=== PATIENT | male | born 1980 | race Caucasian/White ===

== ENCOUNTER → 2020-08-05 15:52 | Outpatient (CLI) | payer MEDICARE, SELFPAY | PROVIDERS: PCP Internal Medicine; Referring Provider Internal Medicine; Visit Provider Orthopaedic Surgery Adult Reconstructive Orthopaedic Surgery | DX: M23.91 Unspecified internal derangement of right knee (principal); Z53.8 Procedure and treatment not carried out for other reasons ==

== ENCOUNTER → 2020-08-11 16:12 | Outpatient (CLI) | payer MEDICARE, SELFPAY ==
--- NOTE | 2020-08-11 16:17 | DI.CT.S_ITS ---
PROCEDURE: CT LE RT WO CON INDICATIONS: UNSPECIFIED INTERNAL DERANGEMENT OF RIGHT KNEE TECHNIQUE: Noncontrast 1-1.5 mm axial sections acquired from the mid-patella to the proximal tibia, with coronal and sagittal reformats. COMPARISON: [facility], CR, XR KNEE ARTHRITIC SERIES BI, 07/31/2020, 14:59. [facility] Outside Film, CR, XR KNEE 3 VIEWS RIGHT, 08/18/2015, 20:03. FINDINGS: Image quality: Excellent. Bones: No fracture or dislocation. No suspicious osseous lesions. Mild tricompartmental osteoarthritic degenerative changes. Lateral subluxation of the patella. The patellar tendon is slightly thickened. Soft tissues: Small knee joint effusion. Anterior and posterior cruciate ligaments are suboptimally visualized, but appear grossly intact. Lateral and medial collateral ligaments are suboptimally visualized, but are grossly intact. Lateral meniscal chondrocalcinosis. No juxta-articular soft tissue swelling/edema. IMPRESSION: 1. Mild tricompartmental osteoarthritis. 2. Lateral patellar subluxation with thickened patellar tendon. 3. Small knee joint effusion. 4. Lateral meniscal chondrocalcinosis. Finding is nonspecific but can be associated with CPPD, hyperparathyroidism and hemochromatosis. Recommend correlation with clinical and laboratory data. 5. No definite evidence of internal derangement, although knee tendons and ligaments are suboptimally visualized by CT imaging. If there is continued clinical concern for internal derangement, consider MRI for further evaluation. Dictated by: Suni Meeks MD, PhD on 08/11/2020 at 17:19 Approved by: Suni Meeks MD, PhD on 08/12/2020 at 10:24
== END ==
PROVIDERS: PCP Internal Medicine; Referring Provider Orthopaedic Surgery Adult Reconstructive Orthopaedic Surgery
DX: M23.91 Unspecified internal derangement of right knee (principal)
CPT/HCPCS: 73700

== ENCOUNTER 2020-08-11 16:28 | Emergency (ER) | payer MEDICARE, SELFPAY ==
[2020-08-11 16:38] VITALS: PULSE 84; RESP 16; TEMP 36.9; O2SAT 97; BMI 41.8
--- NOTE | 2020-08-11 18:03 | DI.RAD.S_ITS ---
PROCEDURE: XR FINGER RT MIN 2V INDICATIONS: osteo vs infection TECHNIQUE: AP hand, 2 views of the 2nd finger(s) acquired. COMPARISON: None. FINDINGS: Bones: No fractures or dislocations. No suspicious bony lesions. There are areas lucency identified within the proximal mid and distal 2nd phalanx most severe in the middle phalanx. Areas of cortical erosion are present within several areas of the lucency. Soft tissues: No suspicious soft tissue calcifications. IMPRESSION: Areas of lucency within the 2nd digit concerning for osteomyelitis. Dictated by: Linda Lake M.D. on 08/11/2020 at 18:22 Approved by: Linda Lake M.D. on 08/11/2020 at 18:23
--- NOTE | 2020-08-11 18:06 | ED_ITS ---
HPI - Extremity Injury (Lower) <ANAYA Ruff - Last Filed: 08/11/20 21:53> General Chief Complaint: Extremity Injury, Lower Stated Complaint: GOUT Time Seen by Provider: 08/11/20 17:41 Source: patient Mode of arrival: Ambulatory Limitations: no limitations History of Present Illness HPI Narrative: This is a 39-year-old male, who has medical history significant for psoriatic arthritis, rheumatoid arthritis, degenerative bone disease with multiple surgeries in wrists and knees and gout presents to ED with chief complain of right distal index finger gout pain. Patient reports today's uric acid level was 12.4 that was drawn at Dr. Diane's office which we do not have a record of. Patient reports affected finger is always red and swollen but redness is slight more erythematous. Patient reports gouty pain is 8/10 despite he had used colchicine, indomethacin, allopurinol, Tylenol, and ibuprofen. Patient denies fever, chills, nausea or vomiting. Patient denies known inj uries. Patient repeats pain feels just like gouty pain. Patient reports had uric acid drawn and it was 12.4 today. Patient reports ran out of hydrocodone 10/325 that was prescribed by pain client relation specialist several days ago and has an appointment tomorrow to get it refilled. Related Data Allergies Allergy/AdvReac Type Severity Reaction Status Date / Time pegloticase [From Krystexxa] Allergy Severe Anaphylaxis Verified 08/11/20 16:43 acetaminophen Allergy Verified 08/11/20 16:43 [From Tylenol-Codeine #3] cephalexin [From Keflex] Allergy Verified 08/11/20 16:43 codeine Allergy Verified 08/11/20 16:43 [From Tylenol-Codeine #3] Review of Systems <ANAYA Ruff - Last Filed: 08/11/20 21:53> Review of Systems Narrative: General: Denies fever, chills, fatigue, malaise, sweats. Respiratory: Denies dyspnea, cough, wheezing, hemoptysis, sputum. Cardiovascular: Denies chest pain, palpitations, orthopnea, edema. Gastrointestinal: Denies nausea, vomiting, abdominal pain, diarrhea, constipation, melena. Musculoskeletal: See HPI Skin: See HPI Patient History <ANAYA Ruff - Last Filed: 08/11/20 21:53> Medical History Cellulitis (Acute) Chronic back pain (Acute) Degenerative arthritis (Acute) Degenerative disorder of bone (Acute) Gout (Acute) Psoriatic arthritis (Acute) Rheumatoid arthritis (Acute) Surgical History History of knee surgery (Acute) History of surgery on wrist (Acute) Social History Smoking Status: Unknown if ever smoked Smoking Status: Unknown if ever smoked Exam <ANAYA Ruff - Last Filed: 08/11/20 21:53> Narrative Exam Narrative: General appearance: well developed, well nourished, in no acute distress. Head: normocephalic, atraumatic, no scalp lesions, non-tender. ENT: Hearing grossly intact. Airway patent. Neck/Thyroid: neck supple, full range of motion, no visible masses or meningeal signs. No JVD, non-tender without lymphadenopathy. Skin: Warm and dry and appropriate color for ethnicity. Heart: no clubbing, no cyanosis, no edema. S1 and S2 normal. RRR w/o murmurs, clicks, or bruits. Lungs: Breathing even and unlabored. No stridor. No accessory muscles used. Able to speak in full sentences. Chest: normal shape and expansion. Abdomen: non-obese, non-distended. Neurologic: alert and oriented. Cognitive exam, PARAKEET RAISER and PNS grossly intact on informal exam. Psych: good eye contact, normal affect. Initial Vital Signs Initial Vital Signs: Vital Signs Temperature 98.4 F 08/11/20 16:38 Pulse Rate 84 08/11/20 16:38 Respiratory Rate 16 08/11/20 16:38 Pulse Oximetry 97 08/11/20 16:38 Extrem Right upper extremity: wrist Details: normal to inspection and normal ROM; no tenderness and hand Details: abnormal to inspection, normal capillary refill, neuromotor exam normal, neurosensory exam normal, tenderness Location: of the 2nd digit Location: at the distal phalanx, vascular exam Details: radial pulse present and normal capillary refill, abnormal ROM of finger Details: pain with active ROM and pain with passive ROM, warmth Location: of the 2nd digit Location: at the distal phalanx and swelling Location: of the 2nd digit Location: at the distal phalanx; no abrasions, no lacerations, no ecchymosis and no crepitus <Eri Caruso MD - Last Filed: 08/12/20 05:25> Initial Vital Signs Initial Vital Signs: Vital Signs Temperature 98.4 F 08/11/20 16:38 Pulse Rate 84 08/11/20 16:38 Respiratory Rate 16 08/11/20 16:38 Pulse Oximetry 97 08/11/20 16:38 Scores <[facility] - Last Filed: 08/11/20 21:53> GCS [place] coma scale eye opening: Spontaneous [place] coma scale verbal response: Orientated [place] coma scale motor response: Obey commands [place] coma scale total score: 15 qSOFA Altered Mental Status (GCS <15): No Respiratory rate greater than/equal to 22: No Systolic blood pressure less than or equal to 100: No qSOFA Total: 0 0-1 Not High Risk 1-3 High risk Course <[facility] - Last Filed: 08/11/20 21:53> Orders Ordered: Discontinued Medications Hydromorphone HCl (Dilaudid) 1 mg IM NOW ONE Stop: 08/11/20 18:02 Last Admin: 08/11/20 18:15 Dose: 1 mg Documented by: CANDIDA Prednisone (Deltasone) 40 mg PO NOW ONE Stop: 08/11/20 19:51 Last Admin: 08/11/20 20:05 Dose: 40 mg Documented by: CANDIDA Vital Signs Vital signs: Vital Signs - 8 hr 08/11/20 16:38 08/11/20 20:18 Temperature 98.4 F 98.6 F Pulse Rate 84 84 Respiratory Rate 16 16 Blood Pressure 150/90 H Pulse Oximetry 97 100 <Eri Caruso MD - Last Filed: 08/12/20 05:25> Orders Ordered: Discontinued Medications Hydromorphone HCl (Dilaudid) 1 mg IM NOW ONE Stop: 08/11/20 18:02 Last Admin: 08/11/20 18:15 Dose: 1 mg Documented by: CANDIDA Prednisone (Deltasone) 40 mg PO NOW ONE Stop: 08/11/20 19:51 Last Admin: 08/11/20 20:05 Dose: 40 mg Documented by: CANDIDA Vital Signs Vital signs: Vital Signs - 8 hr 08/11/20 16:38 08/11/20 20:18 Temperature 98.4 F 98.6 F Pulse Rate 84 84 Respiratory Rate 16 16 Blood Pressure 150/90 H Pulse Oximetry 97 100 MDM - Extremity Injury (Lower) <ANAYA Ruff - Last Filed: 08/11/20 21:53> Differential Diagnosis Differential diagnosis: Likely other (gout, cellulitis, fracture, osteomyelitis) Medical Records Attestation: I reviewed the patient's medical records. Lab Data Attestation: I reviewed the patient's lab results. Result diagrams: 08/11/20 18:18 08/11/20 18:18 Labs: Lab Results 08/11/20 08/11/20 08/11/20 Range/Units 18:18 18:18 18:18 WBC 8.5 (4.5-11.0) X10^3/uL RBC 4.73 (4.5-5.9) X10^6/uL Hgb 13.3 L (13.5-17.5) g/dL Hct 40.1 L (41-53) % MCV 84.7 (80-100) fL MCH 28.1 (26-34) PG MCHC 33.1 (30-36) % RDW 13.6 (11.6-14.8) % Plt Count 255 (150-400) X10^3/uL Neut % (Auto) 64.5 (50-75) % Lymph % (Auto) 26.9 (25-40) % [place] % (Auto) 5.8 (3-14) % Eos % (Auto) 2.3 (2-4) % Baso % (Auto) 0.5 (0-2) % Neut # (Auto) 5500 (7235-0675) /uL Lymph # (Auto) 2300 (1189-5384) /uL [place] # (Auto) 500 (0-900) /uL Eos # (Auto) 200 (0-450) /uL Baso # (Auto) 0 (0-100) /uL ESR 24 H (0-15) MM/HR Sodium (137-145) mmol/L Potassium (3.4-5.1) mmol/L Chloride (98-107) mmol/L Carbon Dioxide (22-32) mmol/L BUN (9-20) mg/dL Creatinine (0.66-1.25) mg/dL Estimated GFR (>60) mL/min BUN/Creatinine Ratio (6-22) Glucose (70-100) mg/dL Lactate 1.4 (0.7-2.1) mmol/L Uric Acid (3.5-8.5) mg/dL Calcium (8.4-10.2) mg/dL C-Reactive Protein (<1.0) mg/dL Procalcitonin < 0.05 (<0.5) ng/mL 08/11/20 08/11/20 08/11/20 Range/Units 18:18 18:18 18:18 WBC (4.5-11.0) X10^3/uL RBC (4.5-5.9) X10^6/uL Hgb (13.5-17.5) g/dL Hct (41-53) % MCV (80-100) fL MCH (26-34) PG MCHC (30-36) % RDW (11.6-14.8) % Plt Count (150-400) X10^3/uL Neut % (Auto) (50-75) % Lymph % (Auto) (25-40) % [place] % (Auto) (3-14) % Eos % (Auto) (2-4) % Baso % (Auto) (0-2) % Neut # (Auto) (0305-3493) /uL Lymph # (Auto) (9521-2693) /uL [place] # (Auto) (0-900) /uL Eos # (Auto) (0-450) /uL Baso # (Auto) (0-100) /uL ESR (0-15) MM/HR Sodium 143 (137-145) mmol/L Potassium 4.1 (3.4-5.1) mmol/L Chloride 108 H (98-107) mmol/L Carbon Dioxide 27 (22-32) mmol/L BUN 13 (9-20) mg/dL Creatinine 0.83 (0.66-1.25) mg/dL Estimated GFR > 60.0 (>60) mL/min BUN/Creatinine Ratio 15.7 (6-22) Glucose 105 H (70-100) mg/dL Lactate (0.7-2.1) mmol/L Uric Acid 9.1 H (3.5-8.5) mg/dL Calcium 9.9 (8.4-10.2) mg/dL C-Reactive Protein 1.0 (<1.0) mg/dL Procalcitonin (<0.5) ng/mL Imaging Data XR-Finger RT: Radiologist's Impression: [address] [address] XRay Report Signed Patient: Chu Hernández LMR#: [id number] : 1980Acct:[id number] Age/Sex: 39 / MDate of Service: 08/11/20 Loc: ED Accession Number: [id number] Procedure: XR finger RT min 2V Ordering Provider: Ruperto Longoria PROCEDURE: XR FINGER RT MIN 2V INDICATIONS: osteo vs infection TECHNIQUE: AP hand, 2 views of the 2nd finger(s) acquired. COMPARISON: None. FINDINGS: Bones: No fractures or dislocations. No suspicious bony lesions. There are areas lucency identified within the proximal mid and distal 2nd phalanx most severe in the middle phalanx. Areas of cortical erosion are present within several areas of the lucency. Soft tissues: No suspicious soft tissue calcifications. IMPRESSION: Areas of lucency within the 2nd digit concerning for osteomyelitis. Dictated by: Linda Lake M.D. on 08/11/2020 at 18:22 Approved by: Linda Lake M.D. on 08/11/2020 at 18:23 [facility] Narrative Medical decision making narrative: This is a 39-year-old male with long history of gout, rheumatoid arthritis psoriatic arthritis, degenerative disorder of bone presents to ED with pain in right index finger. Physical exam appreciated erythema, swelling, painful right distal index finger and patient states there is no changes in swelling and states has redness usually. Patient is taking colchicine daily and had started taking Indomethacine last night. He also is taking Allopurinol and OTC tylenol and motrin today without much improvement. Patient reports this pain is same as the previous gout attack. There is no leukocytosis. Normal lactate and procalcitonin. CRP is 1.0 and ESR is slightly elevated to 24. Normal kidney function test. Elevated Uric acid of 9.1. Patient is afebrile with within normal vital signs. Finger xray shows areas of lucency within marlen 2nd digit concernig for osteomyelitis but labs are assuring. Patient reports pain slightly improved after IM Dilaudid 1mg. Was treated with 1 time dose prednisone 40mg PO before dc to home. I discussed with patient extensively to return to ED with worsening symptoms, pain, fever for re- evauation and further test concerning for osteomyelitis and to follow-up with his primary care physician in 2-3 days. Patient verbalized understanding and states will follow-up with his pain management provider tomorrow for renewal RX of Percocet. Patient in agreement with treatment plan. Dr. Caruso consulted with lab, xray findings and physical exams for treatment and disposition plan. <Eri Caruso MD - Last Filed: 08/12/20 05:25> Lab Data Labs: Lab Results 08/11/20 08/11/20 08/11/20 Range/Units 18:18 18:18 18:18 WBC 8.5 (4.5-11.0) X10^3/uL RBC 4.73 (4.5-5.9) X10^6/uL Hgb 13.3 L (13.5-17.5) g/dL Hct 40.1 L (41-53) % MCV 84.7 (80-100) fL MCH 28.1 (26-34) PG MCHC 33.1 (30-36) % RDW 13.6 (11.6-14.8) % Plt Count 255 (150-400) X10^3/uL Neut % (Auto) 64.5 (50-75) % Lymph % (Auto) 26.9 (25-40) % [place] % (Auto) 5.8 (3-14) % Eos % (Auto) 2.3 (2-4) % Baso % (Auto) 0.5 (0-2) % Neut # (Auto) 5500 (1073-7750) /uL Lymph # (Auto) 2300 (7640-0153) /uL [place] # (Auto) 500 (0-900) /uL Eos # (Auto) 200 (0-450) /uL Baso # (Auto) 0 (0-100) /uL ESR 24 H (0-15) MM/HR Sodium (137-145) mmol/L Potassium (3.4-5.1) mmol/L Chloride (98-107) mmol/L Carbon Dioxide (22-32) mmol/L BUN (9-20) mg/dL Creatinine (0.66-1.25) mg/dL Estimated GFR (>60) mL/min BUN/Creatinine Ratio (6-22) Glucose (70-100) mg/dL Lactate 1.4 (0.7-2.1) mmol/L Uric Acid (3.5-8.5) mg/dL Calcium (8.4-10.2) mg/dL C-Reactive Protein (<1.0) mg/dL Procalcitonin < 0.05 (<0.5) ng/mL 08/11/20 08/11/20 08/11/20 Range/Units 18:18 18:18 18:18 WBC (4.5-11.0) X10^3/uL RBC (4.5-5.9) X10^6/uL Hgb (13.5-17.5) g/dL Hct (41-53) % MCV (80-100) fL MCH (26-34) PG MCHC (30-36) % RDW (11.6-14.8) % Plt Count (150-400) X10^3/uL Neut % (Auto) (50-75) % Lymph % (Auto) (25-40) % [place] % (Auto) (3-14) % Eos % (Auto) (2-4) % Baso % (Auto) (0-2) % Neut # (Auto) (5497-2805) /uL Lymph # (Auto) (3482-6469) /uL [place] # (Auto) (0-900) /uL Eos # (Auto) (0-450) /uL Baso # (Auto) (0-100) /uL ESR (0-15) MM/HR Sodium 143 (137-145) mmol/L Potassium 4.1 (3.4-5.1) mmol/L Chloride 108 H (98-107) mmol/L Carbon Dioxide 27 (22-32) mmol/L BUN 13 (9-20) mg/dL Creatinine 0.83 (0.66-1.25) mg/dL Estimated GFR > 60.0 (>60) mL/min BUN/Creatinine Ratio 15.7 (6-22) Glucose 105 H (70-100) mg/dL Lactate (0.7-2.1) mmol/L Uric Acid 9.1 H (3.5-8.5) mg/dL Calcium 9.9 (8.4-10.2) mg/dL C-Reactive Protein 1.0 (<1.0) mg/dL Procalcitonin (<0.5) ng/mL Discharge Plan Departure Patient Disposition: Home Clinical Impression: Gout attack Qualifiers: Gout site: unspecified site Gout etiology: unspecified cause Qualified Code(s): M10.9 - Gout, unspecified Discharge Date/Time: 08/11/20 20:19 Instructions: DI for Gout Activity Restrictions/Additional Instructions: You have been diagnosed with [right index finger pain likely from gout attack. There is no elevated white count today, negative procalcitonin and lactate indicating infection. Slightly elevated uric acid of 9.1. Normal CRP with elevated ESR of 24. Finger xray shows areas of lucency.]. What to do: *Take your medications as directed. Please continue with your current medication regimen for gout treatment. You were medicated with 1 mg of Dilaudid IM injection and 1 dose of Prednisone 40mg in ED. *Follow up with your primary care provider in 2-3 days, call for an appointment. Let them know you were seen in the ED and that we asked you to be seen in [facility]. *Return to ED if you have any new, worsening, or concerning symptoms, such as [worsening pain, redness/swelling, fever, malaise, chest pain, breathing difficulty, unable to tolerate medication or any acute concerns]. Referrals: Beba Diane MD [Primary Care Provider] - <Eri Caruso MD - Last Filed: 08/12/20 05:25> Cosign ED Attending Cosignature Attestation: I was immediately available in the department for consultation throughout this patient's visit. I agree with documentation as above. Eri Caruso MD
[2020-08-11] MEDS: HYDROMORPHONE 1 MG INJ IM (18:15)
[2020-08-11 18:24] LABS: Add Manual Diff / Slide Review NO; Basophils Absolute Auto 0 /uL (0-100); Basophils Percent Auto 0.5 % (0-2); Eosinophils Absolute Auto 200 /uL (0-450); Eosinophils Percent Auto 2.3 % (2-4); Hematocrit 40.1 % (41-53); Hemoglobin 13.3 g/dL (13.5-17.5); Lymphocytes Absolute Auto 2300 /uL (1100-4500); Lymphocytes Percent Auto 26.9 % (25-40); Mean Corpuscular HGB Conc 33.1 % (30-36); Mean Corpuscular Hemoglobin 28.1 PG (26-34); Mean Corpuscular Volume 84.7 fL (80-100); Monocytes Absolute Auto 500 /uL (0-900); Monocytes Percent Auto 5.8 % (3-14); Neutrophils Absolute Auto 5500 /uL (1500-7000); Neutrophils Percent Auto 64.5 % (50-75); Platelet Count 255 X10^3/uL (150-400); Red Blood Cell Count 4.73 X10^6/uL (4.5-5.9); Red Cell Distribution Width 13.6 % (11.6-14.8); White Blood Cell Count 8.5 X10^3/uL (4.5-11.0)
[2020-08-11 18:38] LABS: BUN Creatinine Ratio 15.7 (6-22); Blood Urea Nitrogen 13 mg/dL (9-20); Calcium 9.9 mg/dL (8.4-10.2); Carbon Dioxide 27 mmol/L (22-32); Chloride 108 mmol/L (98-107); Estimated Glomerular Filt Rate > 60.0 mL/min (>60); Glucose 105 mg/dL (70-100); HEMOLYSIS < 15 (0-50); Potassium 4.1 mmol/L (3.4-5.1); Sodium 143 mmol/L (137-145); Uric Acid 9.1 mg/dL (3.5-8.5)
[2020-08-11 18:39] LABS: Lactate (Lactic Acid) 1.4 mmol/L (0.7-2.1)
[2020-08-11 19:08] LABS: Procalcitonin < 0.05 ng/mL (<0.5)
[2020-08-11 19:17] LABS: Erythrocyte Sedimentation Rate 24 MM/HR (0-15)
[2020-08-11] MEDS: predniSONE 20 MG TABLET 40 MG PO (20:05)
[2020-08-11 20:18] VITALS: BP 150/90; PULSE 84; RESP 16; TEMP 37; O2SAT 100
== END 2020-08-11 20:19 | disposition home or self-care (01) ==
PROVIDERS: Emergency Provider Nurse Practitioner Family; PCP Internal Medicine
DX: M10.9 Gout, unspecified (principal); M23.91 Unspecified internal derangement of right knee; M25.461 Effusion, right knee; M17.11 Unilateral primary osteoarthritis, right knee
CPT/HCPCS: 36415; 73140; 73700; 80048; 83605; 84145; 84550; 85025; 85651; 86140; 96372; 99284; J1170

== ENCOUNTER 2020-12-06 18:34 | Observation (INO) | payer MEDICARE, MEDICAID, SELFPAY ==
[2020-12-06 18:41] VITALS: BP 177/101; PULSE 120; RESP 18; TEMP 37.2; O2SAT 99; BMI 41.2
--- NOTE | 2020-12-06 18:58 | ED.EXTPRO ---
HPI - Extremity Problem <BENNIE Manzano- - Last Filed: 12/06/20 20:05> General Chief complaint: Extremity Problem,Nontraumatic Stated complaint: Feels Like DVT In Right Leg/Hx DVT Time Seen by Provider: 12/06/20 18:48 Source: patient Mode of arrival: Ambulatory Limitations: no limitations History of Present Illness HPI Narrative: The patient is a 40-year-old male with history of psoriatic arthritis and rheumatoid arthritis who presents a chief complaint of right lower leg pain. He has a known deep vein thrombosis which was diagnosed at an outside facility a month and a half ago. He is on Eliquis. He states that he missed a few doses a few weeks ago, but none currently. However his pain has been getting worse over the past 3 days. He notes that he had an [address] where he did not get up and walk around. Subsequently he presents to the emergency department today with a heart rate in the 120s. He denies any chest pain or shortness of breath. He states that he has a complicated medical history, including arthritis, multiple orthopedic issues. He states that his DVT was found with her trying to investigate a ?gout attack and that was not prompted by surgery or travel. Related Data Allergies Allergy/AdvReac Type Severity Reaction Status Date / Time pegloticase [From Krystexxa] Allergy Severe Anaphylaxis Verified 08/11/20 16:43 acetaminophen Allergy Verified 08/11/20 16:43 [From Tylenol-Codeine #3] cephalexin [From Keflex] Allergy Verified 08/11/20 16:43 codeine Allergy Verified 08/11/20 16:43 [From Tylenol-Codeine #3] Review of Systems <BRIE Manzano - Last Filed: 12/06/20 20:05> Review of Systems Narrative: GENERAL: Denies chills, fatigue, malaise, fever, sweats. HEENT: Denies sinus pain, ear pain, sore throat, difficulty swallowing, dizziness. RESPIRATORY: Denies dyspnea, cough, wheezing, hemoptysis, sputum. CARDIOVASCULAR: See HPI GASTROINTESTINAL: Denies nausea, vomiting, abdominal pain, diarrhea, constipation, melena. : Denies dysuria, frequency, incontinence, hematuria, urinary retention. MUSCULOSKELETAL: See HPI SKIN: Denies rash, skin lesions, or other NEUROLOGIC: Denies weakness, headache, numbness, change in speech, confusion, seizures, incoordination. PSYCHIATRIC: No concerning psychosocial issues. 12 point review of systems is negative except for those stated above Patient History <DEAN Manzano - Last Filed: 12/06/20 20:05> Medical History (Updated 12/06/20 @ 21:17 by Eri Caruso MD) Cellulitis Chronic back pain Degenerative arthritis Degenerative disorder of bone Gout Psoriatic arthritis Rheumatoid arthritis Surgical History History of knee surgery History of surgery on wrist Social History Smoking Status: Unknown if ever smoked Smoking Status: Unknown if ever smoked Exam <DEAN Manzano - Last Filed: 12/06/20 20:05> Narrative Exam Narrative: GENERAL: Obese male lying on stretcher in no acute distress HEAD: Atraumatic. Normocephalic. No temporal or scalp tenderness. EYES: Pupils equal round and reactive. Extraocular motions intact. No scleral icterus. No injection or drainage. ENT: Nose without bleeding, purulent drainage or septal hematoma. Wearing a mask. Airway patent. NECK: Trachea midline. No JVD or lymphadenopathy. Supple, nontender, no meningeal signs. CARDIOVASCULAR: tachycardia rate and regular rhythm RESPIRATORY: Clear to auscultation. Breath sounds equal bilaterally. No wheezes, rales, or rhonchi. No cough. No increased respiratory effort. No accessory muscle use GASTROINTESTINAL: Abdomen soft, non-tender, nondistended. No hepato-splenomegaly, or palpable masses. No guarding. EXTREMITIES: pain to palpation noted right lower leg posterior, positive pedal pulses, wearing knee sleeve right sleeve BACK: Nontender without deformity or crepitance. No flank tenderness. NEURO: AOx3. SKIN: No rash or erythema. Initial Vital Signs Initial Vital Signs: Vital Signs Temperature 98.9 F 12/06/20 18:41 Pulse Rate 120 H 12/06/20 18:41 Respiratory Rate 18 12/06/20 18:41 Blood Pressure 177/101 H 12/06/20 18:41 Pulse Oximetry 99 12/06/20 18:41 <Eri Caruso MD - Last Filed: 12/06/20 22:30> Initial Vital Signs Initial Vital Signs: Vital Signs Temperature 98.9 F 12/06/20 18:41 Pulse Rate 120 H 12/06/20 18:41 Respiratory Rate 18 12/06/20 18:41 Blood Pressure 177/101 H 12/06/20 18:41 Pulse Oximetry 99 12/06/20 18:41 Scores <DEAN Manzano - Last Filed: 12/06/20 20:05> GCS Arabella coma scale eye opening: Spontaneous [place] coma scale verbal response: Orientated [place] coma scale motor response: Obey commands [place] coma scale total score: 15 Course <DEAN Manzano - Last Filed: 12/06/20 20:05> Orders Ordered: ED Orders 12/06/20 18:54 US periph venous low extrem rt Stat EKG-12 Lead Stat 12/06/20 19:06 Complete Blood Count AUTO DIFF Stat Comprehensive Metabolic Panel Stat D Dimer Urgent Lactate (Lactic Acid) Stat Magnesium Stat NT-proBNP (BNP-Adult 18+) Stat Partial Thromboplastin Time Stat Prothrombin Time INR Stat Troponin & CK Cardiac Panel Stat 12/06/20 19:50 CT angio chest PE protocol Stat 12/06/20 20:10 Urine Microscopic Stat 12/06/20 21:20 COVID19 Stat Heparin Sodium/Dextrose (Heparin Drip) 25,000 unit in 500 mls @ 24 mls/hr IV CONT AMINA; Protocol Last Admin: 12/06/20 21:15 Dose: 1,200 units/hr, 24 mls/hr Documented by: CATHIE Discontinued Medications Heparin Sodium (Porcine) (Heparin 5,000 Unit/Ml Vial) 7,500 unit IV NOW ONE Stop: 12/06/20 21:10 Last Admin: 12/06/20 21:16 Dose: 7,500 unit Documented by: CATIHE Morphine Sulfate (Morphine 4 Mg/Ml Inj) 4 mg IV NOW ONE Stop: 12/06/20 19:27 Last Admin: 12/06/20 20:02 Dose: 4 mg Documented by: CATHIE Oxycodone HCl (Oxycodone Ir 5 Mg Tablet) 5 mg PO NOW ONE Stop: 12/06/20 21:47 Last Admin: 12/06/20 21:51 Dose: 5 mg Documented by: CATHIE Oxycodone/Acetaminophen (Oxycodone/Acetaminophen 5/325 Tablet) 2 tab PO NOW ONE Stop: 12/06/20 21:04 Last Admin: 12/06/20 21:11 Dose: 2 tab Documented by: CATHIE Oxycodone/Acetaminophen (Oxycodone/Acetaminophen 5/325 Tablet) 2 tab PO NOW ONE Stop: 12/06/20 21:10 Last Admin: 12/06/20 21:12 Dose: Not Given Documented by: CATHIE Vital Signs Vital signs: Vital Signs - 8 hr 12/06/20 18:41 12/06/20 19:31 12/06/20 19:33 Temperature 98.9 F Pulse Rate 120 H 91 H 90 Respiratory Rate 18 14 19 Blood Pressure 177/101 H 141/72 H 139/71 Pulse Oximetry 99 98 97 12/06/20 20:30 Temperature Pulse Rate 91 H Respiratory Rate 18 Blood Pressure Pulse Oximetry 97 <Eri Caruso MD - Last Filed: 12/06/20 22:30> Orders Ordered: ED Orders 12/06/20 18:54 US periph venous low extrem rt Stat EKG-12 Lead Stat 12/06/20 19:06 Complete Blood Count AUTO DIFF Stat Comprehensive Metabolic Panel Stat D Dimer Urgent Lactate (Lactic Acid) Stat Magnesium Stat NT-proBNP (BNP-Adult 18+) Stat Partial Thromboplastin Time Stat Prothrombin Time INR Stat Troponin & CK Cardiac Panel Stat 12/06/20 19:50 CT angio chest PE protocol Stat 12/06/20 20:10 Urine Microscopic Stat 12/06/20 21:20 COVID19 Stat Heparin Sodium/Dextrose (Heparin Drip) 25,000 unit in 500 mls @ 24 mls/hr IV CONT AMINA; Protocol Last Admin: 12/06/20 21:15 Dose: 1,200 units/hr, 24 mls/hr Documented by: CATHIE Discontinued Medications Heparin Sodium (Porcine) (Heparin 5,000 Unit/Ml Vial) 7,500 unit IV NOW ONE Stop: 12/06/20 21:10 Last Admin: 12/06/20 21:16 Dose: 7,500 unit Documented by: CATHIE Morphine Sulfate (Morphine 4 Mg/Ml Inj) 4 mg IV NOW ONE Stop: 12/06/20 19:27 Last Admin: 12/06/20 20:02 Dose: 4 mg Documented by: CATHIE Oxycodone HCl (Oxycodone Ir 5 Mg Tablet) 5 mg PO NOW ONE Stop: 12/06/20 21:47 Last Admin: 12/06/20 21:51 Dose: 5 mg Documented by: CATHIE Oxycodone/Acetaminophen (Oxycodone/Acetaminophen 5/325 Tablet) 2 tab PO NOW ONE Stop: 12/06/20 21:04 Last Admin: 12/06/20 21:11 Dose: 2 tab Documented by: CATHIE Oxycodone/Acetaminophen (Oxycodone/Acetaminophen 5/325 Tablet) 2 tab PO NOW ONE Stop: 12/06/20 21:10 Last Admin: 12/06/20 21:12 Dose: Not Given Documented by: CATHIE Vital Signs Vital signs: Vital Signs - 8 hr 12/06/20 18:41 12/06/20 19:31 12/06/20 19:33 Temperature 98.9 F Pulse Rate 120 H 91 H 90 Respiratory Rate 18 14 19 Blood Pressure 177/101 H 141/72 H 139/71 Pulse Oximetry 99 98 97 12/06/20 20:30 Temperature Pulse Rate 91 H Respiratory Rate 18 Blood Pressure Pulse Oximetry 97 MDM - Extremity (Nontraumatic) <BENNIE Manzano-BC - Last Filed: 12/06/20 20:05> Lab Data Result diagrams: 12/06/20 19:06 12/06/20 19:06 Labs: Lab Results 12/06/20 12/06/20 12/06/20 Range/Units 19:06 19:06 19:06 WBC 11.5 H (4.5-11.0) X10^3/uL RBC 5.09 (4.5-5.9) X10^6/uL Hgb 13.3 L (13.5-17.5) g/dL Hct 41.8 (41-53) % MCV 82.1 (80-100) fL MCH 26.1 (26-34) PG MCHC 31.7 (30-36) % RDW 15.9 H (11.6-14.8) % Plt Count 237 (150-400) X10^3/uL Neut % (Auto) 72.6 (50-75) % Lymph % (Auto) 18.9 L (25-40) % [place] % (Auto) 6.7 (3-14) % Eos % (Auto) 1.5 L (2-4) % Baso % (Auto) 0.3 (0-2) % Neut # (Auto) 8300 H (2221-3606) /uL Lymph # (Auto) 2200 (2850-1854) /uL [place] # (Auto) 800 (0-900) /uL Eos # (Auto) 200 (0-450) /uL Baso # (Auto) 0 (0-100) /uL PT 13.5 H (10.1-12.7) SECONDS INR 1.2 (0.9-1.3) APTT 34 (26.4-36.2) SECONDS D-Dimer (<230) ng/mL Sodium (137-145) mmol/L Potassium (3.4-5.1) mmol/L Chloride (98-107) mmol/L Carbon Dioxide (22-32) mmol/L BUN (9-20) mg/dL Creatinine (0.66-1.25) mg/dL Estimated GFR (>60) mL/min BUN/Creatinine Ratio (6-22) Glucose (70-100) mg/dL Lactate (0.7-2.1) mmol/L Calcium (8.4-10.2) mg/dL Magnesium (1.6-2.3) mg/dL Total Bilirubin (0.2-1.3) mg/dL AST (17-59) IU/L ALT (<50) IU/L Alkaline Phosphatase (38-126) U/L Total Creatine Kinase (55-170) U/L CK-MB (CK-2) CK-MB (CK-2) Rel Index Troponin I (0.01-0.034) ng/mL NT-Pro-B Natriuret Pep 56 (<125) pg/mL Total Protein (6.3-8.2) g/dL Albumin (3.5-5.0) g/dL Globulin (1.7-4.1) g/dL Albumin/Globulin Ratio (1.0-2.8) Urine RBC (0-5/HPF) Urine WBC (0-5/HPF) Ur Squamous Epith Cells (0-5/HPF) Urine Bacteria (None) Urine Mucus (Negative) Ur Culture Indicated? SARS-CoV-2 (PCR) (Negative) 03/07/21 03/07/21 03/07/21 Range/Units 19:06 19:06 19:06 WBC (4.5-11.0) X10^3/uL RBC (4.5-5.9) X10^6/uL Hgb (13.5-17.5) g/dL Hct (41-53) % MCV (80-100) fL MCH (26-34) PG MCHC (30-36) % RDW (11.6-14.8) % Plt Count (150-400) X10^3/uL Neut % (Auto) (50-75) % Lymph % (Auto) (25-40) % [place] % (Auto) (3-14) % Eos % (Auto) (2-4) % Baso % (Auto) (0-2) % Neut # (Auto) (6718-8685) /uL Lymph # (Auto) (1356-8054) /uL [place] # (Auto) (0-900) /uL Eos # (Auto) (0-450) /uL Baso # (Auto) (0-100) /uL PT (10.1-12.7) SECONDS INR (0.9-1.3) APTT (26.4-36.2) SECONDS D-Dimer 385 H (<230) ng/mL Sodium 137 (137-145) mmol/L Potassium 3.9 (3.4-5.1) mmol/L Chloride 102 (98-107) mmol/L Carbon Dioxide 26 (22-32) mmol/L BUN 12 (9-20) mg/dL Creatinine 0.82 (0.66-1.25) mg/dL Estimated GFR > 60.0 (>60) mL/min BUN/Creatinine Ratio 14.6 (6-22) Glucose 178 H (70-100) mg/dL Lactate 2.0 (0.7-2.1) mmol/L Calcium 9.1 (8.4-10.2) mg/dL Magnesium 1.7 (1.6-2.3) mg/dL Total Bilirubin 0.6 (0.2-1.3) mg/dL AST 26 (17-59) IU/L ALT 27 (<50) IU/L Alkaline Phosphatase 93 (38-126) U/L Total Creatine Kinase 86 (55-170) U/L CK-MB (CK-2) TNP CK-MB (CK-2) Rel Index TNP Troponin I < 0.012 (0.01-0.034) ng/mL NT-Pro-B Natriuret Pep (<125) pg/mL Total Protein 8.8 H (6.3-8.2) g/dL Albumin 4.8 (3.5-5.0) g/dL Globulin 4.0 (1.7-4.1) g/dL Albumin/Globulin Ratio 1.2 (1.0-2.8) Urine RBC (0-5/HPF) Urine WBC (0-5/HPF) Ur Squamous Epith Cells (0-5/HPF) Urine Bacteria (None) Urine Mucus (Negative) Ur Culture Indicated? SARS-CoV-2 (PCR) (Negative) 12/06/20 12/06/20 12/06/20 Range/Units 20:10 21:20 21:20 WBC (4.5-11.0) X10^3/uL RBC (4.5-5.9) X10^6/uL Hgb (13.5-17.5) g/dL Hct (41-53) % MCV (80-100) fL MCH (26-34) PG MCHC (30-36) % RDW (11.6-14.8) % Plt Count (150-400) X10^3/uL Neut % (Auto) (50-75) % Lymph % (Auto) (25-40) % [place] % (Auto) (3-14) % Eos % (Auto) (2-4) % Baso % (Auto) (0-2) % Neut # (Auto) (6758-4183) /uL Lymph # (Auto) (0801-3128) /uL [place] # (Auto) (0-900) /uL Eos # (Auto) (0-450) /uL Baso # (Auto) (0-100) /uL PT (10.1-12.7) SECONDS INR (0.9-1.3) APTT (26.4-36.2) SECONDS D-Dimer (<230) ng/mL Sodium (137-145) mmol/L Potassium (3.4-5.1) mmol/L Chloride (98-107) mmol/L Carbon Dioxide (22-32) mmol/L BUN (9-20) mg/dL Creatinine (0.66-1.25) mg/dL Estimated GFR (>60) mL/min BUN/Creatinine Ratio (6-22) Glucose (70-100) mg/dL Lactate 1.3 (0.7-2.1) mmol/L Calcium (8.4-10.2) mg/dL Magnesium (1.6-2.3) mg/dL Total Bilirubin (0.2-1.3) mg/dL AST (17-59) IU/L ALT (<50) IU/L Alkaline Phosphatase (38-126) U/L Total Creatine Kinase (55-170) U/L CK-MB (CK-2) CK-MB (CK-2) Rel Index Troponin I (0.01-0.034) ng/mL NT-Pro-B Natriuret Pep (<125) pg/mL Total Protein (6.3-8.2) g/dL Albumin (3.5-5.0) g/dL Globulin (1.7-4.1) g/dL Albumin/Globulin Ratio (1.0-2.8) Urine RBC 5-10/hpf H (0-5/HPF) Urine WBC 1-5/hpf (0-5/HPF) Ur Squamous Epith Cells 0-1 /hpf (0-5/HPF) Urine Bacteria Occasional (0-1) (None) Urine Mucus 2+ H (Negative) Ur Culture Indicated? Cult not indicated SARS-CoV-2 (PCR) Negative (Negative) Urine Dip Bedside Urine Glucose Negative Bedside Urine Bilirubin - Negative Bedside Urine Ketone - Negative Urine Specific [place] 1.030 Bedside Urine Occult Blood + Bedside Urine pH 6 Bedside Urine Protein - Negative Bedside Urine Urobilinogen - Negative Bedside Urine Nitrite - Negative Bedside Urine Leukocytes - Negative Esterase MDM Narrative Medical decision making narrative: The patient is a 40-year-old male with history of known DVT who presents with a chief complaint of persistent pain in his right lower leg, is noted to be tachycardic in the 120s on arrival. Given risk factors for PE, CTA obtained. Basic lab work is reassuring though, negative troponin negative BNP. Patient signed out to Dr Caruso at 20:00 <Eri Caruso MD - Last Filed: 12/06/20 22:30> Lab Data Labs: Lab Results 12/06/20 12/06/20 12/06/20 Range/Units 19:06 19:06 19:06 WBC 11.5 H (4.5-11.0) X10^3/uL RBC 5.09 (4.5-5.9) X10^6/uL Hgb 13.3 L (13.5-17.5) g/dL Hct 41.8 (41-53) % MCV 82.1 (80-100) fL MCH 26.1 (26-34) PG MCHC 31.7 (30-36) % RDW 15.9 H (11.6-14.8) % Plt Count 237 (150-400) X10^3/uL Neut % (Auto) 72.6 (50-75) % Lymph % (Auto) 18.9 L (25-40) % [place] % (Auto) 6.7 (3-14) % Eos % (Auto) 1.5 L (2-4) % Baso % (Auto) 0.3 (0-2) % Neut # (Auto) 8300 H (5658-8915) /uL Lymph # (Auto) 2200 (7634-3297) /uL [place] # (Auto) 800 (0-900) /uL Eos # (Auto) 200 (0-450) /uL Baso # (Auto) 0 (0-100) /uL PT 13.5 H (10.1-12.7) SECONDS INR 1.2 (0.9-1.3) APTT 34 (26.4-36.2) SECONDS D-Dimer (<230) ng/mL Sodium (137-145) mmol/L Potassium (3.4-5.1) mmol/L Chloride (98-107) mmol/L Carbon Dioxide (22-32) mmol/L BUN (9-20) mg/dL Creatinine (0.66-1.25) mg/dL Estimated GFR (>60) mL/min BUN/Creatinine Ratio (6-22) Glucose (70-100) mg/dL Lactate (0.7-2.1) mmol/L Calcium (8.4-10.2) mg/dL Magnesium (1.6-2.3) mg/dL Total Bilirubin (0.2-1.3) mg/dL AST (17-59) IU/L ALT (<50) IU/L Alkaline Phosphatase (38-126) U/L Total Creatine Kinase (55-170) U/L CK-MB (CK-2) CK-MB (CK-2) Rel Index Troponin I (0.01-0.034) ng/mL NT-Pro-B Natriuret Pep 56 (<125) pg/mL Total Protein (6.3-8.2) g/dL Albumin (3.5-5.0) g/dL Globulin (1.7-4.1) g/dL Albumin/Globulin Ratio (1.0-2.8) Urine RBC (0-5/HPF) Urine WBC (0-5/HPF) Ur Squamous Epith Cells (0-5/HPF) Urine Bacteria (None) Urine Mucus (Negative) Ur Culture Indicated? SARS-CoV-2 (PCR) (Negative) 12/06/20 12/06/20 12/06/20 Range/Units 19:06 19:06 19:06 WBC (4.5-11.0) X10^3/uL RBC (4.5-5.9) X10^6/uL Hgb (13.5-17.5) g/dL Hct (41-53) % MCV (80-100) fL MCH (26-34) PG MCHC (30-36) % RDW (11.6-14.8) % Plt Count (150-400) X10^3/uL Neut % (Auto) (50-75) % Lymph % (Auto) (25-40) % [place] % (Auto) (3-14) % Eos % (Auto) (2-4) % Baso % (Auto) (0-2) % Neut # (Auto) (0794-5002) /uL Lymph # (Auto) (8420-4879) /uL [place] # (Auto) (0-900) /uL Eos # (Auto) (0-450) /uL Baso # (Auto) (0-100) /uL PT (10.1-12.7) SECONDS INR (0.9-1.3) APTT (26.4-36.2) SECONDS D-Dimer 385 H (<230) ng/mL Sodium 137 (137-145) mmol/L Potassium 3.9 (3.4-5.1) mmol/L Chloride 102 (98-107) mmol/L Carbon Dioxide 26 (22-32) mmol/L BUN 12 (9-20) mg/dL Creatinine 0.82 (0.66-1.25) mg/dL Estimated GFR > 60.0 (>60) mL/min BUN/Creatinine Ratio 14.6 (6-22) Glucose 178 H (70-100) mg/dL Lactate 2.0 (0.7-2.1) mmol/L Calcium 9.1 (8.4-10.2) mg/dL Magnesium 1.7 (1.6-2.3) mg/dL Total Bilirubin 0.6 (0.2-1.3) mg/dL AST 26 (17-59) IU/L ALT 27 (<50) IU/L Alkaline Phosphatase 93 (38-126) U/L Total Creatine Kinase 86 (55-170) U/L CK-MB (CK-2) TNP CK-MB (CK-2) Rel Index TNP Troponin I < 0.012 (0.01-0.034) ng/mL NT-Pro-B Natriuret Pep (<125) pg/mL Total Protein 8.8 H (6.3-8.2) g/dL Albumin 4.8 (3.5-5.0) g/dL Globulin 4.0 (1.7-4.1) g/dL Albumin/Globulin Ratio 1.2 (1.0-2.8) Urine RBC (0-5/HPF) Urine WBC (0-5/HPF) Ur Squamous Epith Cells (0-5/HPF) Urine Bacteria (None) Urine Mucus (Negative) Ur Culture Indicated? SARS-CoV-2 (PCR) (Negative) 12/06/20 12/06/20 12/06/20 Range/Units 20:10 21:20 21:20 WBC (4.5-11.0) X10^3/uL RBC (4.5-5.9) X10^6/uL Hgb (13.5-17.5) g/dL Hct (41-53) % MCV (80-100) fL MCH (26-34) PG MCHC (30-36) % RDW (11.6-14.8) % Plt Count (150-400) X10^3/uL Neut % (Auto) (50-75) % Lymph % (Auto) (25-40) % [place] % (Auto) (3-14) % Eos % (Auto) (2-4) % Baso % (Auto) (0-2) % Neut # (Auto) (3604-2239) /uL Lymph # (Auto) (3193-9116) /uL [place] # (Auto) (0-900) /uL Eos # (Auto) (0-450) /uL Baso # (Auto) (0-100) /uL PT (10.1-12.7) SECONDS INR (0.9-1.3) APTT (26.4-36.2) SECONDS D-Dimer (<230) ng/mL Sodium (137-145) mmol/L Potassium (3.4-5.1) mmol/L Chloride (98-107) mmol/L Carbon Dioxide (22-32) mmol/L BUN (9-20) mg/dL Creatinine (0.66-1.25) mg/dL Estimated GFR (>60) mL/min BUN/Creatinine Ratio (6-22) Glucose (70-100) mg/dL Lactate 1.3 (0.7-2.1) mmol/L Calcium (8.4-10.2) mg/dL Magnesium (1.6-2.3) mg/dL Total Bilirubin (0.2-1.3) mg/dL AST (17-59) IU/L ALT (<50) IU/L Alkaline Phosphatase (38-126) U/L Total Creatine Kinase (55-170) U/L CK-MB (CK-2) CK-MB (CK-2) Rel Index Troponin I (0.01-0.034) ng/mL NT-Pro-B Natriuret Pep (<125) pg/mL Total Protein (6.3-8.2) g/dL Albumin (3.5-5.0) g/dL Globulin (1.7-4.1) g/dL Albumin/Globulin Ratio (1.0-2.8) Urine RBC 5-10/hpf H (0-5/HPF) Urine WBC 1-5/hpf (0-5/HPF) Ur Squamous Epith Cells 0-1 /hpf (0-5/HPF) Urine Bacteria Occasional (0-1) (None) Urine Mucus 2+ H (Negative) Ur Culture Indicated? Cult not indicated SARS-CoV-2 (PCR) Negative (Negative) Urine Dip Bedside Urine Glucose Negative Bedside Urine Bilirubin - Negative Bedside Urine Ketone - Negative Urine Specific [place] 1.030 Bedside Urine Occult Blood + Bedside Urine pH 6 Bedside Urine Protein - Negative Bedside Urine Urobilinogen - Negative Bedside Urine Nitrite - Negative Bedside Urine Leukocytes - Negative Esterase Imaging Data CT scan - chest: Radiologist's Impression: FINDINGS: Image quality: Nondiagnostic due to improper bolus timing. Pulmonary arteries: Central pulmonary arteries are normal size. Unfortunately there is improper bolus timing and a lobar or segmental embolus is not able to be excluded. Lungs and pleura: Lungs are clear. No pleural effusions or pneumothorax. Central and peripheral airways are patent. Mediastinum: Heart size is normal, without pericardial effusion. No mediastinal or hilar adenopathy. Thoracic aorta is normal in caliber and enhancement. Esophagus is normal in caliber, without hiatal hernia. Bones and chest wall: No suspicious bony lesions. In epidural nerve stimulator is present in the thoracic region. Ribs and thoracic spine appear intact throughout. Thyroid gland is normal. No axillary or supraclavicular adenopathy. Abdomen: Visualized upper abdomen demonstrates hepatomegaly and mild hepatic steatosis. IMPRESSION: 1. Suboptimal scan time versus contrast bolus and the sub pulmonary embolus is not excluded. 2. There is no evidence of pulmonary pathology or right heart strain. 3. Hepatomegaly and hepatic steatosis. Dictated by: Nelia Collins M.D. on 12/06/2020 at 20:40 ECG Data Attestation EKG: I personally reviewed and interpreted this ECG as follows: Interpretation: Sinus rhythm Normal intervals, normal axis No acute STT wave changes MDM Narrative Medical decision making narrative: 40-year-old gentleman with no psoriatic and rheumatoid arthritis recently diagnosed with a right lower extremity DVT and started on Eliquis. He states that he typically takes it religiously however he did miss a couple of doses last week. He had an extended drive and has had increasing pain in the right lower extremity and presents to the ER with dyspnea and heart rate at 120 with no signs of atrial fibrillation, acute coronary syndrome, sepsis, or pneumothorax to explain the tachycardia. We opted to do a CT scan of his chest knowing that he was anticoagulated if the DVT in the leg had expanded are options would continue to be anticoagulation but possibility of pulmonary embolism given this history is extraordinarily high. Unfortunately the CT scan was nondiagnostic and a lobar or segmental embolus is not able to be excluded. At this point I believe the most conservative and safest option is going to assume that he has a pulmonary embolism, place him on heparin for the evening and continue sorting out details tomorrow. Care is reviewed with hospitalist, Mr. Us. Patient agrees to plan for admission as well Discharge Plan Departure Patient Disposition: Admitted as Observation Clinical Impression: Pulmonary embolism Qualifiers: Pulmonary embolism type: unspecified Chronicity: acute Acute cor pulmonale presence: unspecified Qualified Code(s): I26.99 - Other pulmonary embolism without acute cor pulmonale Admit Date/Time: 12/06/20 22:29 Admit Provider: Sukhdev Us
[2020-12-06 19:25] LABS: Add Manual Diff / Slide Review NO; Basophils Absolute Auto 0 /uL (0-100); Basophils Percent Auto 0.3 % (0-2); Eosinophils Absolute Auto 200 /uL (0-450); Eosinophils Percent Auto 1.5 % (2-4); Hematocrit 41.8 % (41-53); Hemoglobin 13.3 g/dL (13.5-17.5); INR 1.2 (0.9-1.3); Lymphocytes Absolute Auto 2200 /uL (1100-4500); Lymphocytes Percent Auto 18.9 % (25-40); Mean Corpuscular HGB Conc 31.7 % (30-36); Mean Corpuscular Hemoglobin 26.1 PG (26-34); Mean Corpuscular Volume 82.1 fL (80-100); Monocytes Absolute Auto 800 /uL (0-900); Monocytes Percent Auto 6.7 % (3-14); Neutrophils Absolute Auto 8300 /uL (1500-7000); Neutrophils Percent Auto 72.6 % (50-75); Platelet Count 237 X10^3/uL (150-400); Prothrombin Time 13.5 SECONDS (10.1-12.7); Red Blood Cell Count 5.09 X10^6/uL (4.5-5.9); Red Cell Distribution Width 15.9 % (11.6-14.8); White Blood Cell Count 11.5 X10^3/uL (4.5-11.0)
[2020-12-06 19:27] LABS: PTT Partial Thromboplastin Tim 34 SECONDS (26.4-36.2)
[2020-12-06 19:31] VITALS: BP 141/72; PULSE 91; RESP 14; O2SAT 98
[2020-12-06 19:33] VITALS: BP 139/71; PULSE 90; RESP 19; O2SAT 97
[2020-12-06 19:33] LABS: Alanine Aminotransferase 27 IU/L (<50); Albumin 4.8 g/dL (3.5-5.0); Albumin Globulin Ratio 1.2 (1.0-2.8); Alkaline Phosphatase 93 U/L (38-126); Aspartate Aminotransferase 26 IU/L (17-59); BUN Creatinine Ratio 14.6 (6-22); Bilirubin Total 0.6 mg/dL (0.2-1.3); Blood Urea Nitrogen 12 mg/dL (9-20); Calcium 9.1 mg/dL (8.4-10.2); Carbon Dioxide 26 mmol/L (22-32); Chloride 102 mmol/L (98-107); Creatine Kinase 86 U/L (55-170); Estimated Glomerular Filt Rate > 60.0 mL/min (>60); Glucose 178 mg/dL (70-100); HEMOLYSIS 16 (0-50); Magnesium 1.7 mg/dL (1.6-2.3); Potassium 3.9 mmol/L (3.4-5.1); Sodium 137 mmol/L (137-145); Total Protein 8.8 g/dL (6.3-8.2)
[2020-12-06 19:43] LABS: NT-proBNP (BNP-Adult 18+) 56 pg/mL (<125)
[2020-12-06 19:44] LABS: Troponin I < 0.012 ng/mL (0.01-0.034)
--- NOTE | 2020-12-06 19:50 | DI.CT.S_ITS ---
PROCEDURE: CT ANGIO CHEST PE PROTOCOL INDICATIONS: history of dvt, tachy, recent travel TECHNIQUE: After the administration of intravenous contrast, 2 mm thick sections acquired from the pulmonary apices to the posterior costophrenic angles. 3-dimensional maximum intensity projection (MIP) coronal and sagittal reformats were then acquired through the thorax. For radiation dose reduction, the following was used: automated exposure control, adjustment of mA and/or kV according to patient size. COMPARISON: None. FINDINGS: Image quality: Nondiagnostic due to improper bolus timing. Pulmonary arteries: Central pulmonary arteries are normal size. Unfortunately there is improper bolus timing and a lobar or segmental embolus is not able to be excluded. Lungs and pleura: Lungs are clear. No pleural effusions or pneumothorax. Central and peripheral airways are patent. Mediastinum: Heart size is normal, without pericardial effusion. No mediastinal or hilar adenopathy. Thoracic aorta is normal in caliber and enhancement. Esophagus is normal in caliber, without hiatal hernia. Bones and chest wall: No suspicious bony lesions. In epidural nerve stimulator is present in the thoracic region. Ribs and thoracic spine appear intact throughout. Thyroid gland is normal. No axillary or supraclavicular adenopathy. Abdomen: Visualized upper abdomen demonstrates hepatomegaly and mild hepatic steatosis. IMPRESSION: 1. Suboptimal scan time versus contrast bolus and the sub pulmonary embolus is not excluded. 2. There is no evidence of pulmonary pathology or right heart strain. 3. Hepatomegaly and hepatic steatosis. Dictated by: Nelia Collins M.D. on 12/06/2020 at 20:40 Approved by: Nelia Collins M.D. on 12/06/2020 at 20:46
[2020-12-06] MEDS: MORPHINE 4 MG/ML INJ IV (20:02)
[2020-12-06 20:30] VITALS: PULSE 91; RESP 18; O2SAT 97
[2020-12-06 20:53] LABS: Bacteria Urine Occasional (0-1); Culture Indicated Urine Cult Not Indicated; Mucus Urine 2+ (Negative); RBC Urine 5-10/HPF (0-5/HPF); Squamous Epithelial Cell Urine 0-1 /HPF (0-5/HPF); WBC Urine 1-5/HPF (0-5/HPF)
[2020-12-06] MEDS: OXYCODONE/ACETAMINOPHEN 5/325 TABLET 2 TAB PO (21:11)
[2020-12-06 21:13] LABS: Reflexed Lactate in 2 Hours Y
[2020-12-06] MEDS: HEPARIN DRIP 25,000 UNIT/500 ML IV.SOLN 24 UNIT IV (21:15)
[2020-12-06] MEDS: HEPARIN 5,000 UNIT/ML VIAL 7500 UNIT IV (21:16)
[2020-12-06 21:38] LABS: Lactate 2HR (Lactic Acid Rflx) 1.3 mmol/L (0.7-2.1)
[2020-12-06 21:39] LABS: COVID19 -Nasal RAPID Negative (Negative)
[2020-12-06] MEDS: OXYCODONE IR 5 MG TABLET PO (21:51)
[2020-12-06 22:23] LABS: D Dimer 385 ng/mL (<230)
[2020-12-06 22:38] VITALS: BP 140/73; PULSE 93; RESP 21; O2SAT 96
--- NOTE | 2020-12-06 23:22 | DI.US.S_ITS ---
PROCEDURE: US PERIPH VENOUS LOW EXTREM RT INDICATIONS: KNOWN DVT TECHNIQUE: Real-time imaging, as well as color and pulse Doppler interrogation, were performed of the lower extremity deep veins from the inguinal ligament to the popliteal fossa. COMPARISON: None. FINDINGS: The common femoral, femoral and popliteal veins are normally compressible, and free of intraluminal thrombus. Color and pulse Doppler demonstrate normal phasic intraluminal flow. There is normal augmentation response to distal compression maneuver. IMPRESSION: No DVT in the right lower extremity Dictated by: Aj Cadet M.D. on 12/07/2020 at 8:36 Approved by: Aj Cadet M.D. on 12/07/2020 at 8:37
[2020-12-06 23:42] VITALS: BMI 41.7
[2020-12-06 23:54] VITALS: PULSE 96; RESP 16; O2SAT 97
[2020-12-07] VITALS: BP 136/83; PULSE 93; RESP 20; TEMP 36.5; O2SAT 96
--- NOTE | 2020-12-07 00:21 | P.HP_ITS ---
History of Present Illness History of Present Illness Date Patient Seen: 12/07/20 Time Patient Seen: 00:21 Chief complaint: Feels Like DVT In Right Leg/Hx DVT Narrative: Mr. Chu Hernández is a 40-year-old male patient with past medical history significant for psoriatic arthritis, rheumatoid arthritis and osteoarthritis, gout, chronic back pain and Womack cyst who presents to the ER with increasing right leg pain. Patient was diagnosed with a DVT in the right leg in October 2020 and is being treated with Eliquis 5 mg twice daily. Patient states he missed a few doses recently and had an 8 hour car ride today developing worsening left leg pain presenting the ER using crutch to ambulate. The patient denies complaints of chest pain or shortness of breath. 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 The patient otherwise denies complaints of recent cold or flu symptoms and has had no known COVID-19 exposures. She denies fevers or chills, headaches or dizziness. Denies complaints of chest pain or palpitations and has no shortness of breath cough or wheezing. Denies abdominal pain nausea vomiting, diarrhea or constipation and denies urinary symptoms. Upon arrival to the ER the patient has a temperature of 98.9?, heart rate of 120, blood pressure 177/101, saturating 99% on room air. A CTA of the chest was obtained for possible PE: Suboptimal scan bolus timing, sub pulmonary embolism not excluded, no pulmonary pathology, no right heart strain, hepatomegaly and steatosis. On lab analysis he has white count of 11.5, hemoglobin of 13.3, hematocrit 41.8 and platelets 237. His PT is 13.5 with an INR of 1.2 and a PTT of 34. His electrolytes are all within normal limits with a BUN of 12 and a creatinine is 0.82. Magnesium is 1.7. His nonfasting blood sugar is 178. His liver functions are all within normal limits. His total CK is 86 and troponin is less than 0.012. Lactic acid is 1.3. Venous ultrasound of the right lower extremity was ordered in the ER and then canceled. Will add a D-dimer. The patient is admitted to the hospital service for DVT right leg, rule out pulmonary embolism. Patient History Medical History Cellulitis Chronic back pain Degenerative arthritis Degenerative disorder of bone Gout Psoriatic arthritis Rheumatoid arthritis Surgical History History of knee surgery History of surgery on wrist Family & Social History Social History: household members significant other Prior Living Arrangements House Safety & Behavioral: Feels Safe in Current Yes Environment Been Physically Hurt or No Threatened By a Person Suicidal Ideation Description None Suicide Plan Description No Plan Tobacco & Substance use: Tobacco type cigarettes Smoking Status Former smoker alcohol intake former Meds Home Medications and Allergies Home Medications Medication Instructions Recorded Confirmed Type Krystexxa 1 mg IV 2XW 12/07/20 12/07/20 History allopurinol 300 mg TID 12/07/20 12/07/20 History apixaban [Eliquis] 5 mg PO BID 12/07/20 12/07/20 History colchicine 0.6 mg PO DAILY 12/07/20 12/07/20 History hydrocodone-acetaminophen 1 tab PO Q6HR 12/07/20 12/07/20 History metformin 500 mg PO BID 12/07/20 12/07/20 History sildenafil [Viagra] See Rx Instructions .ROUTE 12/07/20 12/07/20 History .COMPLEX PRN Allergies Allergy/AdvReac Type Severity Reaction Status Date / Time pegloticase [From Krystexxa] Allergy Severe Anaphylaxis Verified 08/11/20 16:43 cephalexin [From Keflex] Allergy Verified 08/11/20 16:43 codeine Allergy Verified 08/11/20 16:43 [From Tylenol-Codeine #3] Review of Systems Review of Systems ROS: Yes All systems reviewed with the patient and are negative except as otherwise documented Exam Vital Signs (past 8 hours): - 12/06/20 18:41 12/06/20 19:31 12/06/20 19:33 Temperature 98.9 F Pulse Rate 120 H 91 H 90 Respiratory Rate 18 14 19 Blood Pressure 177/101 H 141/72 H 139/71 Pulse Oximetry 99 98 97 12/06/20 20:30 12/06/20 22:38 12/06/20 23:54 Temperature Pulse Rate 91 H 93 H Respiratory Rate 18 21 Blood Pressure 140/73 Pulse Oximetry 97 96 97 Oxygen Delivery Method Room Air Narrative Exam Narrative: GENERAL APPEARANCE: well developed, well nourished, in no acute distress. HEENT: Normocephalic, PERRLA, conjunctiva clear, EOMs intact without nystagmus, no sinus tenderness to percussion, no rhinorrhea, mucous membranes are moist and pink without lesions or exudate. NECK/THYROID: neck supple, no JVD, no carotid bruit, no thyromegaly, trachea midline. LYMPH NODES: no cervical or supraclavicular lymphadenopathy. SKIN: [place], warm and dry, draining wound lateral right lower leg with purulent material, 2 cm x 2 cm HEART: regular rate and rhythm, S1-S2, no murmur, no rubs or gallops, brisk cap illary refill, no edema LUNGS: clear to auscultation bilaterally, no coarseness crackles or wheezing, no cough present CHEST: Symmetrical movement, no accessory muscle use, good tidal volume. ABDOMEN: Soft, Protuberant, no epigastric or abdominal tenderness, no guarding or peritoneal signs, no organomegaly, no flank or suprapubic tenderness, active bowel tones. BACK: Normal curvature, nontender to palpation, no CVA tenderness on percussion EXTREMITIES: Finger Tophi, moves all extremities, strength is 5/5 and symmetrical, no clubbing or cyanosis NEUROLOGIC: AAO x4, no focal neurologic deficits, cranial nerves II-XII grossly intact, sensation intact to light touch, hearing grossly normal to speech. PSYCH: Good judgment, good insight, linear thought process, cooperative, appropriate with stable behavior Objective Labs Result Diagrams: 12/07/20 03:08 12/07/20 03:08 Labs: Laboratory Results - last 24 hr 12/06/20 12/06/20 12/06/20 19:06 19:06 19:06 WBC 11.5 H RBC 5.09 Hgb 13.3 L Hct 41.8 MCV 82.1 MCH 26.1 MCHC 31.7 RDW 15.9 H Plt Count 237 Neut % (Auto) 72.6 Lymph % (Auto) 18.[address] [place] % (Auto) 6.7 Eos % (Auto) 1.5 L Baso % (Auto) 0.3 Neut # (Auto) 8300 H Lymph # (Auto) 2200 [facility] # (Auto) 800 Eos # (Auto) 200 Baso # (Auto) 0 PT 13.5 H INR 1.2 APTT 34 D-Dimer Sodium Potassium Chloride Carbon Dioxide BUN Creatinine Estimated GFR BUN/Creatinine Ratio Glucose Lactate Calcium Magnesium Total Bilirubin AST ALT Alkaline Phosphatase Total Creatine Kinase CK-MB (CK-2) CK-MB (CK-2) Rel Index Troponin I NT-Pro-B Natriuret Pep 56 Total Protein Albumin Globulin Albumin/Globulin Ratio Urine RBC Urine WBC Ur Squamous Epith Cells Urine Bacteria Urine Mucus Ur Culture Indicated? SARS-CoV-2 (PCR) 12/06/20 12/06/20 12/06/20 19:06 19:06 19:06 WBC RBC Hgb Hct MCV MCH MCHC RDW Plt Count Neut % (Auto) Lymph % (Auto) [facility] % (Auto) Eos % (Auto) Baso % (Auto) Neut # (Auto) Lymph # (Auto) [facility] # (Auto) Eos # (Auto) Baso # (Auto) PT INR APTT D-Dimer 385 H Sodium 137 Potassium 3.9 Chloride 102 Carbon Dioxide 26 BUN 12 Creatinine 0.82 Estimated GFR > 60.0 BUN/Creatinine Ratio 14.6 Glucose 178 H Lactate 2.0 Calcium 9.1 Magnesium 1.7 Total Bilirubin 0.6 AST 26 ALT 27 Alkaline Phosphatase 93 Total Creatine Kinase 86 CK-MB (CK-2) TNP CK-MB (CK-2) Rel Index TNP Troponin I < 0.012 NT-Pro-B Natriuret Pep Total Protein 8.8 H Albumin 4.8 Globulin 4.0 Albumin/Globulin Ratio 1.2 Urine RBC Urine WBC Ur Squamous Epith Cells Urine Bacteria Urine Mucus Ur Culture Indicated? SARS-CoV-2 (PCR) 12/06/20 12/06/20 12/06/20 20:10 21:20 21:20 WBC RBC Hgb Hct MCV MCH MCHC RDW Plt Count Neut % (Auto) Lymph % (Auto) [facility] % (Auto) Eos % (Auto) Baso % (Auto) Neut # (Auto) Lymph # (Auto) [facility] [place] # (Auto) Eos # (Auto) Baso # (Auto) PT INR APTT D-Dimer Sodium Potassium Chloride Carbon Dioxide BUN Creatinine Estimated GFR BUN/Creatinine Ratio Glucose Lactate 1.3 Calcium Magnesium Total Bilirubin AST ALT Alkaline Phosphatase Total Creatine Kinase CK-MB (CK-2) CK-MB (CK-2) Rel Index Troponin I NT-Pro-B Natriuret Pep Total Protein Albumin Globulin Albumin/Globulin Ratio Urine RBC 5-10/hpf H Urine WBC 1-5/hpf Ur Squamous Epith Cells 0-1 /hpf Urine Bacteria Occasional (0-1) Urine Mucus 2+ H Ur Culture Indicated? Cult not indicated SARS-CoV-2 (PCR) Negative Assessment & Plan Assessment & Plan narrative: This is a 40-year-old male patient who presents the ER with worsening right leg pain provoked by an 8 hour car ride today with a known DVT. The patient has had a break in his anticoagulation therapy of Eliquis 5 mg twice daily. 1. Right lower extremity DVT, acute on chronic, active. -patient reports being diagnosed with a right lower extremity DVT in September. -venous ultrasound October 13 2020 notes occlusive clot the distal aspect of the right popliteal vein, no thrombus in the common femoral or right superficial veins. -patient had been on Eliquis 5 mg twice daily and had a break in treatment missing doses last Monday and Monday but has been consistent since. -will continue Eliquis 5 mg twice daily. -with worsening pain ordered venous ultrasound right lower extremity. 2. Possible pulmonary embolism, acute, active -CTA: Suboptimal bolus timing resulted in inability to rule out PE. -patient is started on heparin infusion for noncardiac protocol with serial PTT monitoring. -will obtain labs in the morning monitor renal function, normal saline ordered 75 cc an hour for renal protection. -repeat CTA in the morning. 3. Diabetes type 2, non insulin dependent, with hyperglycemia, chronic, stable. -initial laboratory finds of serum glucose 178. -patient routinely takes a metformin 500 mg twice daily. -ordered fingerstick blood sugar checks a.c. and HS with low-dose correctional insulin. -will obtain a hemoglobin A1c. 4. Gout, chronic, stable. -multiple tophi, no current complaints of gouty flare. -patient Receive pegloticase IV every 2 weeks, next dose to 12/16/2020. -will continue colchicine 0.6 mg daily and allopurinol 300 mg 3 times daily. 5. Draining wound lateral right lower leg, chronic, stable. -patient states he previously had I&D of the wound was told had MRSA. Wound is been stable in size however is tender to touch with no warmth. -he states the wound continues to drain routinely and has mild induration approximately 2 cm by 2 cm. -wound culture obtained and patient placed on contact isolation. -the patient is not been on antibiotic therapy, will wait initial Gram stain. 6. Morbid Obesity, BMI 41.7 -patient weight significantly impacts diabetes, multiple joint arthritis requiring implantation a spinal stimulator for pain management and impaired mobility. -patient is on small consistent carbohydrate diet. -dietitian consult. 7. Obstructive sleep apnea, chronic, stable -request respiratory therapy to consult and treat. -APAP as per RT protocol VTE prophylaxis: Anticoagulated on Eliquis, therapeutic heparin. IV fluid: Normal saline 75 cc/hour Diet: Small consistent carbohydrate Code status: Full code, the patient designates his fiancee the cold to be his surrogate decision maker. The patient is admitted to the hospital related to severity symptoms and risk for complications adverse events requiring further evaluation monitoring. The patient is admitted as observation with expected length of stay to be less than 2 midnights. COVID-19 COVID-19 status: Negative Result date/Date tested (Pos, Neg/Pending): 12/06/20 Quality VTE Deep Vein Thrombosis/Pulmonary Embolism Present on Admission: Yes
[2020-12-07] MEDS: OXYCODONE IR 10 MG TABLET PO ×2 (00:33→06:41)
--- NOTE | 2020-12-07 01:14 | PC.NURSE ---
Admitted to room 223, from ER with heparin drip infusing @ 1200 units/hr & infusion rate of 24 cc/hr. Having difficulty standing on his rt. leg due to pain & BLE diabetic neuropathy. Medicated with 10 mg. of oxycodone pain level 8/10. Using his own crutch with mobility, denies any fall for the last 3 months. Instructed not to get OOB without any assistance call light within reach & bed alarm activated. Will cont. POC & monitor.
[2020-12-07] MEDS: APIXABAN 5 MG TABLET PO ×2 (01:38→09:54)
[2020-12-07] MEDS: SODIUM CHLORIDE 0.9% 1,000 ML 75 ML IV (01:38)
[2020-12-07 01:53] LABS: Hemoglobin A1C% w Est Avg Glu 6.5 % (4.0-6.0)
[2020-12-07 03:22] LABS: Add Manual Diff / Slide Review NO; Basophils Absolute Auto 0 /uL (0-100); Basophils Percent Auto 0.4 % (0-2); Eosinophils Absolute Auto 200 /uL (0-450); Eosinophils Percent Auto 2.1 % (2-4); Hematocrit 37.1 % (41-53); Lymphocytes Absolute Auto 2800 /uL (1100-4500); Lymphocytes Percent Auto 27.5 % (25-40); Mean Corpuscular HGB Conc 32.3 % (30-36); Mean Corpuscular Hemoglobin 26.3 PG (26-34); Mean Corpuscular Volume 81.4 fL (80-100); Monocytes Absolute Auto 900 /uL (0-900); Neutrophils Absolute Auto 6200 /uL (1500-7000); Platelet Count 220 X10^3/uL (150-400); Red Blood Cell Count 4.56 X10^6/uL (4.5-5.9); Red Cell Distribution Width 16.1 % (11.6-14.8); White Blood Cell Count 10.2 X10^3/uL (4.5-11.0)
[2020-12-07 03:30] LABS: PTT Partial Thromboplastin Tim 56 SECONDS (26.4-36.2)
[2020-12-07 03:31] LABS: Alanine Aminotransferase 22 IU/L (<50); Albumin Globulin Ratio 1.2 (1.0-2.8); Alkaline Phosphatase 76 U/L (38-126); Aspartate Aminotransferase 21 IU/L (17-59); Bilirubin Total 0.6 mg/dL (0.2-1.3); Bilirubin Unconjugated 0.6 mg/dL (0.0-1.1); Globulin 3.3 g/dL (1.7-4.1); HEMOLYSIS < 15 (0-50); Total Protein 7.3 g/dL (6.3-8.2)
[2020-12-07 03:33] LABS: BUN Creatinine Ratio 15.3 (6-22); Blood Urea Nitrogen 11 mg/dL (9-20); Calcium 9.1 mg/dL (8.4-10.2); Carbon Dioxide 27 mmol/L (22-32); Chloride 101 mmol/L (98-107); Cholesterol 164 mg/dL (140-199); Estimated Glomerular Filt Rate > 60.0 mL/min (>60); Glucose 140 mg/dL (70-100); HDL Cholesterol 32 mg/dL (40-60); HEMOLYSIS < 15 (0-50); LDL Cholesterol Calculated 95 mg/dL (<100); Magnesium 1.7 mg/dL (1.6-2.3); Potassium 3.9 mmol/L (3.4-5.1); Sodium 134 mmol/L (137-145); Triglycerides 184 mg/dL (35-150)
--- NOTE | 2020-12-07 03:51 | PC.NURSE ---
0340 ANAYA Us notified with PTT result @ 56, ordered to discontinue Heparin gtt. Order implemented discontinued Heparin drip @ 0340. Will monitor.
[2020-12-07 04:00] VITALS: BP 136/68; PULSE 72; RESP 18; TEMP 36.6; O2SAT 98
[2020-12-07 07:50] VITALS: BP 102/66; PULSE 83; RESP 17; TEMP 36.6; O2SAT 97
[2020-12-07] MEDS: COLCHICINE 0.6 MG TABLET PO (07:51)
[2020-12-07] MEDS: allopurinoL 300 MG TABLET PO (07:51)
--- NOTE | 2020-12-07 08:36 | DI.CT.S_ITS ---
PROCEDURE: CT ANGIO CHEST PE PROTOCOL INDICATIONS: History right DVT diagnosed October 2020 TECHNIQUE: After the administration of intravenous contrast, 2 mm thick sections acquired from the pulmonary apices to the posterior costophrenic angles. 3-dimensional maximum intensity projection (MIP) coronal and sagittal reformats were then acquired through the thorax. For radiation dose reduction, the following was used: automated exposure control, adjustment of mA and/or kV according to patient size. COMPARISON: [facility], CT, CT ANGIO CHEST PE PROTOCOL, 12/06/2020, 19:59. FINDINGS: Image quality: Excellent. Pulmonary arteries: Pulmonary arteries are normal in size, and demonstrate no intraluminal filling defects to suggest central pulmonary embolism. Lungs and pleura: No evidence of pneumonia, or edema. There are two adjacent 4 mm nodules within the right major fissure inferiorly. No pleural effusions or pneumothorax. Central and peripheral airways are patent. Mediastinum: Heart size is normal, without pericardial effusion. No mediastinal or hilar adenopathy. Thoracic aorta is normal in caliber and enhancement. Esophagus is normal in caliber, without hiatal hernia. Bones and chest wall: No suspicious bony lesions. Ribs and thoracic spine appear intact throughout. Thyroid gland is within normal limits. No axillary or supraclavicular adenopathy. Abdomen: Visualized portions of the upper abdomen demonstrate diffusely decreased hepatic density and hepatomegaly. IMPRESSION: 1. No acute process. 2. No pulmonary embolus. 3. No change in hepatic steatosis. 4. No change in right major fissure nodules; follow-up is recommended as below. Fleischner Society criteria for SOLID lung nodule followup. Nodule size (mm)Low-risk patientHigh-risk patient<6 (single or multiple)No routine followup.Optional CT at 12 months. 6-8 (single or multiple)CT at 6-12 months, then optional CT at 18-24 mo.CT at 6-12 months, then CT at 18-24 months. >8 (single)CT, PET-CT, or biopsy at 3 months. Same as for low-risk pts. >8 (multiple)CT at 3-6 months, then optional CT at 18-24 mo.CT at 3-6 months, then CT at 18-24 months. Recommendations do not apply to lung cancer screening, patients with immunosuppression, or patients with known primary cancer. Dictated by: Ross Wiseman M.D. on 12/07/2020 at 8:33 Approved by: Ross Wiseman M.D. on 12/07/2020 at 8:37
--- NOTE | 2020-12-07 09:58 | OT.IPNOTE ---
Per hospitalist , OT eval orders not needed as pt to be discharged. Therefore discharge OT eval orders.
--- NOTE | 2020-12-07 10:00 | PC.NURSE ---
Went over dc instructions and medications with patient,questions answered. Rx sent electronically to [facility]. Dr Jacob aware and patient ok to drive himself home at 1000. Patient taken via wc to vehicle patient had all belongings.
--- NOTE | 2020-12-07 10:51 | CM.DANOTE ---
DCP: Case received, EMR reviewed and met with patient. Introduced self and role. Was able to briefly see patient, but provider came in, and patient is discharged. Was able to obtain information to complete DCP assessment based on information currently available. Patient is a 40 year old male who admitted yesterday evening to the care of the hospitalist team. PCP: Dr. Colbert. Payer: confirmed: Medicare. Patient came to the hospital via private vehicle secondary to having right lower leg pain. Patient had been diagnosed at his provider clinic with DVT, and had been put on Eliquis. According to notes, he had been on an [address] with limited mobility, and had missed some doses of Eliquis. His hear rate had also been in the 120s. Checked on patient. He was sitting on the side of his bed eating his breakfast. Introduced self and role. Dr. Jacob came in to see patient, so this vacation planner left the room. During team rounds, Dr. Jacob indicated that he was discharging patient, he has been medically stable. Patient had already left the hospital. Patient was driving himself home, so he is independent. P: Patient was discharged home today with no needs. Lorraine Butler, RN/Motor Vehicle Dispatcher
--- NOTE | 2020-12-07 15:16 | P.DS_ITS ---
History of Present Illness History of Present Illness Date Patient Seen: 12/07/20 Time Patient Seen: 08:30 Chief complaint: Feels Like DVT In Right Leg/Hx DVT Narrative: As per ANAYA Ramey: Mr. Chu Hernández is a 40-year-old male patient with past medical history significant for psoriatic arthritis, rheumatoid arthritis and osteoarthritis, gout, chronic back pain and Womack cyst who presents to the ER with increasing right leg pain. Patient was diagnosed with a DVT in the right leg in October 2020 and is being treated with Eliquis 5 mg twice daily. Patient states he missed a few doses recently and had an 8 hour car ride today developing worsening left leg pain presenting the ER using crutch to ambulate. The patient denies complaints of chest pain or shortness of breath. 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 The patient otherwise denies complaints of recent cold or flu symptoms and has had no known COVID-19 exposures. She denies fevers or chills, headaches or dizziness. Denies complaints of chest pain or palpitations and has no shortness of breath cough or wheezing. Denies abdominal pain nausea vomiting, diarrhea or constipation and denies urinary symptoms. Upon arrival to the ER the patient has a temperature of 98.9?, heart rate of 120, blood pressure 177/101, saturating 99% on room air. A CTA of the chest was obtained for possible PE: Suboptimal scan bolus timing, sub pulmonary embolism not excluded, no pulmonary pathology, no right heart strain, hepatomegaly and steatosis. On lab analysis he has white count of 11.5, hemoglobin of 13.3, hematocrit 41.8 and platelets 237. His PT is 13.5 with an INR of 1.2 and a PTT of 34. His electrolytes are all within normal limits with a BUN of 12 and a creatinine is 0.82. Magnesium is 1.7. His nonfasting blood sugar is 178. His liver functions are all within normal limits. His total CK is 86 and troponin is less than 0.012. Lactic acid is 1.3. Venous ultrasound of the right lower extremity was ordered in the ER and then canceled. Will add a D-dimer. The patient is admitted to the hospital service for DVT right leg, rule out pulmonary embolism. Discharge Providers Provider Date of admission: 12/06/20 22:29 Discharge Date: 12/07/20 Primary care physician: Sammie Colbert PA-C Consults: 12/06/20 23:22 Consult to Dietitian, Adult Routine Comment: Reason For Exam: Obesity, OA, RA, psoriatic arthritis, gout Consult to Discharge Planning Routine Comment: Consult to Occupational Therapy Evaluate & Treat Comment: Right DVT, OA, RA, psoriatic arthritis, gout Physician Instructions: Evaluate and treat Consult to Physical Therapy Evaluate & Treat Comment: Right DVT, OA, RA, psoriatic arthritis, gout Physician Instructions: Evaluate and Treat Consult to Respiratory Therapy Evaluate & Treat Comment: Physician Instructions: Evaluate and treat Discharge provider: Sukhdev Jacob DO Summary Hospital Course Discharge Diagnosis: 1. history of DVT 2. R knee pain, acute on chronic, present on admission 3. Gout, acute, present on admission. 4. psoriatic, osteo, and rheumatoid arthritis, chronic 5. chronic low back pain 6. Obesity, BMI 41.7, present on admission. Hospital Course: Mr. Chu Hernández is a 40-year-old male patient with past medical history significant for psoriatic arthritis, rheumatoid arthritis and osteoarthritis, gout, chronic back pain and Womack cyst who presented to the ER with increasing right leg pain. Patient was diagnosed with a DVT in the right leg in October 2020 and is being treated with Eliquis 5 mg twice daily. Patient states he missed a few doses recently and had an 8 hour car ride today developing worsening right leg pain presenting the ER using crutch to ambulate. The patient denied complaints of chest pain or shortness of breath. 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 The patient's knee pain is posteriorly, and he does have a history of gout. His knee was mildly warm and he had been trying some indomethacin at home. Ultrasound of his lower extremity showed no DVT. CT angiogram was performed which was initially indeterminate, although repeat study was negative. His right knee pain I believe is either due to his previous Womack's cyst or less likely acute gout, however the patient has been taking NSAIDs. I recommended a short trial of prednisone to see if this would help as an outpatient and that he follow-up with his orthopedic surgeon. He should continue Eliquis for at least 3 months despite the negative imaging today. Exam Vital Signs (past 8 hours): - 12/07/20 07:50 Temperature 98 F Pulse Rate 83 Respiratory Rate 17 Blood Pressure 102/66 Pulse Oximetry 97 Oxygen Delivery Method Room Air,CPAP Oxygen Flow Rate 0 Narrative Exam Narrative: GENERAL APPEARANCE: well developed, well nourished, in no acute distress. Obese with BMI 41.7 HEENT: Normocephalic, PERRLA, conjunctiva clear, EOMs intact without nystagmus, no sinus tenderness to percussion, no rhinorrhea, mucous membranes are moist and pink without lesions or exudate. NECK/THYROID: neck supple, no JVD, no carotid bruit, no thyromegaly, trachea midline. LYMPH NODES: no cervical or supraclavicular lymphadenopathy. SKIN: Lillie, warm and dry, draining wound lateral right lower leg chronic, 2 cm x 2 cm. HEART: regular rate and rhythm, S1-S2, no murmur, no rubs or gallops, brisk capillary refill, no edema LUNGS: clear to auscultation bilaterally, no coarseness crackles or wheezing, no cough present CHEST: Symmetrical movement, no accessory muscle use, good tidal volume. ABDOMEN: Soft, Protuberant, no epigastric or abdominal tenderness, no guarding or peritoneal signs, no organomegaly, no flank or suprapubic tenderness, active bowel tones. BACK: Normal curvature, nontender to palpation, no CVA tenderness on percussion EXTREMITIES: Finger Tophi, moves all extremities, strength is 5/5 and symmetrical, no clubbing or cyanosis. Mild warmth over R knee compared to L, no erythema. Tender posteriorly in the popliteal area. NEUROLOGIC: AAO x4, no focal neurologic deficits, cranial nerves II-XII grossly intact, sensation intact to light touch, hearing grossly normal to speech. PSYCH: Good judgment, good insight, linear thought process, cooperative, appropriate with stable behavior Objective Labs Result Diagrams: 12/07/20 03:08 12/07/20 03:08 Labs: Laboratory Results - last 24 hr 12/06/20 12/06/20 12/06/20 19:06 19:06 19:06 WBC 11.5 H RBC 5.09 Hgb 13.3 L Hct 41.8 MCV 82.1 MCH 26.1 MCHC 31.7 RDW 15.9 H Plt Count 237 Neut % (Auto) 72.6 Lymph % (Auto) 18.9 L [place] % (Auto) 6.7 Eos % (Auto) 1.5 L Baso % (Auto) 0.3 Neut # (Auto) 8300 H Lymph # (Auto) 2200 [place] # (Auto) 800 Eos # (Auto) 200 Baso # (Auto) 0 PT 13.5 H INR 1.2 APTT 34 D-Dimer Sodium Potassium Chloride Carbon Dioxide BUN Creatinine Estimated GFR BUN/Creatinine Ratio Glucose Hemoglobin A1c Lactate Calcium Magnesium Total Bilirubin Conjugated Bilirubin Unconjugated Bilirubin AST ALT Alkaline Phosphatase Total Creatine Kinase CK-MB (CK-2) CK-MB (CK-2) Rel Index Troponin I NT-Pro-B Natriuret Pep 56 Total Protein Albumin Globulin Albumin/Globulin Ratio Triglycerides Cholesterol LDL Cholesterol, Calc HDL Cholesterol Urine RBC Urine WBC Ur Squamous Epith Cells Urine Bacteria Urine Mucus Ur Culture Indicated? SARS-CoV-2 (PCR) 12/06/20 12/06/20 12/06/20 19:06 19:06 19:06 WBC RBC Hgb Hct MCV MCH MCHC RDW Plt Count Neut % (Auto) Lymph % (Auto) [place] % (Auto) Eos % (Auto) Baso % (Auto) Neut # (Auto) Lymph # (Auto) [place] # (Auto) Eos # (Auto) Baso # (Auto) PT INR APTT D-Dimer 385 H Sodium 137 Potassium 3.9 Chloride 102 Carbon Dioxide 26 BUN 12 Creatinine 0.82 Estimated GFR > 60.0 BUN/Creatinine Ratio 14.6 Glucose 178 H Hemoglobin A1c Lactate 2.0 Calcium 9.1 Magnesium 1.7 Total Bilirubin 0.6 Conjugated Bilirubin Unconjugated Bilirubin AST 26 ALT 27 Alkaline Phosphatase 93 Total Creatine Kinase 86 CK-MB (CK-2) TNP CK-MB (CK-2) Rel Index TNP Troponin I < 0.012 NT-Pro-B Natriuret Pep Total Protein 8.8 H Albumin 4.8 Globulin 4.0 Albumin/Globulin Ratio 1.2 Triglycerides Cholesterol LDL Cholesterol, Calc HDL Cholesterol Urine RBC Urine WBC Ur Squamous Epith Cells Urine Bacteria Urine Mucus Ur Culture Indicated? SARS-CoV-2 (PCR) 12/06/20 12/06/20 12/06/20 19:06 20:10 21:20 WBC RBC Hgb Hct MCV MCH MCHC RDW Plt Count Neut % (Auto) Lymph % (Auto) [place] % (Auto) Eos % (Auto) Baso % (Auto) Neut # (Auto) Lymph # (Auto) [place] # (Auto) Eos # (Auto) Baso # (Auto) PT INR APTT D-Dimer Sodium Potassium Chloride Carbon Dioxide BUN Creatinine Estimated GFR BUN/Creatinine Ratio Glucose Hemoglobin A1c 6.5 H Lactate 1.3 Calcium Magnesium Total Bilirubin Conjugated Bilirubin Unconjugated Bilirubin AST ALT Alkaline Phosphatase Total Creatine Kinase CK-MB (CK-2) CK-MB (CK-2) Rel Index Troponin I NT-Pro-B Natriuret Pep Total Protein Albumin Globulin Albumin/Globulin Ratio Triglycerides Cholesterol LDL Cholesterol, Calc HDL Cholesterol Urine RBC 5-10/hpf H Urine WBC 1-5/hpf Ur Squamous Epith Cells 0-1 /hpf Urine Bacteria Occasional (0-1) Urine Mucus 2+ H Ur Culture Indicated? Cult not indicated SARS-CoV-2 (PCR) 12/06/20 12/07/20 12/07/20 21:20 03:08 03:08 WBC 10.2 RBC 4.56 Hgb 12.0 L Hct 37.1 L MCV 81.4 MCH 26.3 MCHC 32.3 RDW 16.1 H Plt Count 220 Neut % (Auto) 61.0 Lymph % (Auto) 27.5 Mitchell % (Auto) 9.0 Eos % (Auto) 2.1 Baso % (Auto) 0.4 Neut # (Auto) 6200 Lymph # (Auto) 2800 [place] # (Auto) 900 Eos # (Auto) 200 Baso # (Auto) 0 PT INR APTT D-Dimer Sodium 134 L Potassium 3.9 Chloride 101 Carbon Dioxide 27 BUN 11 Creatinine 0.72 Estimated GFR > 60.0 BUN/Creatinine Ratio 15.3 Glucose 140 H Hemoglobin A1c Lactate Calcium 9.1 Magnesium 1.7 Total Bilirubin Conjugated Bilirubin Unconjugated Bilirubin AST ALT Alkaline Phosphatase Total Creatine Kinase CK-MB (CK-2) CK-MB (CK-2) Rel Index Troponin I NT-Pro-B Natriuret Pep Total Protein Albumin Globulin Albumin/Globulin Ratio Triglycerides 184 H Cholesterol 164 LDL Cholesterol, Calc 95 HDL Cholesterol 32 L Urine RBC Urine WBC Ur Squamous Epith Cells Urine Bacteria Urine Mucus Ur Culture Indicated? SARS-CoV-2 (PCR) Negative 12/07/20 12/07/20 03:08 03:08 WBC RBC Hgb Hct MCV MCH MCHC RDW Plt Count Neut % (Auto) Lymph % (Auto) [place] % (Auto) Eos % (Auto) Baso % (Auto) Neut # (Auto) Lymph # (Auto) [place] # (Auto) Eos # (Auto) Baso # (Auto) PT INR APTT 56 H D D-Dimer Sodium Potassium Chloride Carbon Dioxide BUN Creatinine Estimated GFR BUN/Creatinine Ratio Glucose Hemoglobin A1c Lactate Calcium Magnesium Total Bilirubin 0.6 Conjugated Bilirubin 0.0 Unconjugated Bilirubin 0.6 AST 21 ALT 22 Alkaline Phosphatase 76 Total Creatine Kinase CK-MB (CK-2) CK-MB (CK-2) Rel Index Troponin I NT-Pro-B Natriuret Pep Total Protein 7.3 Albumin 4.0 Globulin 3.3 Albumin/Globulin Ratio 1.2 Triglycerides Cholesterol LDL Cholesterol, Calc HDL Cholesterol Urine RBC Urine WBC Ur Squamous Epith Cells Urine Bacteria Urine Mucus Ur Culture Indicated? SARS-CoV-2 (PCR) [facility] Medical History Cellulitis Chronic back pain Degenerative arthritis Degenerative disorder of bone Gout Psoriatic arthritis Rheumatoid arthritis Surgical History History of knee surgery History of surgery on wrist Social History household members: significant other Smoking Status: Former smoker alcohol intake: former Discharge Plan Discharge Plan Patient Disposition: Home Discharge orders & Medications Prescriptions: New prednisone 20 mg tablet 40 mg PO DAILY 5 Days Qty: 10 RF: 0 Continued allopurinol 300 mg tablet 300 mg TID RF: 0 colchicine 0.6 mg tablet 0.6 mg PO DAILY RF: 0 Eliquis 5 mg tablet 5 mg PO BID RF: 0 metformin 500 mg Tablet 500 mg PO BID RF: 0 hydrocodone-acetaminophen 10-325 mg tablet 1 tab PO Q6HR RF: 0 Krystexxa 1 mg IV 2XW RF: 0 sildenafil [Viagra] 100 mg Tablet See Rx Instructions .ROUTE .COMPLEX PRN (Reason: Erectile Dysfunction) RF: 0 Follow up/Referrals: Sammie Colbert PA-C [Primary Care Provider] - Visit Report/Discharge Packet Instructions: Prednisone, Apixaban Discharge Data Primary Care Provider: Sammie Colbert Attending Provider: Sukhdev Us VTE Deep Vein Thrombosis/Pulmonary Embolism Present on Admission: Yes
--- NOTE | 2020-12-11 11:09 | PC.NURSE ---
Late Entry; NS infusion initiated 12/07 at 01:38, stopped by MD discharge order at 09:12.
== END 2020-12-07 10:03 | disposition home or self-care (01) ==
LOC: ED 21:17 → AC 22:30
PROVIDERS: Nurse Practitioner Family; Admitting Provider Nurse Practitioner Adult Health; Emergency Provider Emergency Medicine; PCP Student in an Organized Health Care Education/Training Program; Referring Provider Emergency Medicine; Visit Provider Nurse Practitioner Adult Health
DX: M79.661 Pain in right lower leg (principal); Z86.718 Personal history of other venous thrombosis and embolism; M10.9 Gout, unspecified; M06.9 Rheumatoid arthritis, unspecified; L40.50 Arthropathic psoriasis, unspecified; M19.90 Unspecified osteoarthritis, unspecified site; G89.29 Other chronic pain; M54.5 Low back pain; E66.9 Obesity, unspecified; Z79.01 Long term (current) use of anticoagulants; Z68.41 Body mass index [BMI] 40.0-44.9, adult; Z20.822 Contact with and (suspected) exposure to COVID-19
CPT/HCPCS: 36415; 71275; 80048; 80053; 80061; 80076; 81003; 81015; 82550; 82962; 83036; 83605; 83735; 83880; 84484; 85025; 85379; 85610; 85730; 87070; 87205; 87635; 93005; 93971; 94660; 94762; 96361; 96365; 96366; 96375; 99284; C9803; G0378; J1644; J2270; Q9967

== ENCOUNTER 2021-07-18 14:25 | Inpatient (IN) | payer MEDICARE, MEDICAID, SELFPAY ==
[2021-07-18] VITALS (11 sets, daily range): BP systolic 103–141; BP diastolic 43–82; PULSE 77–98; RESP 16–20; TEMP 36.4–37.1; O2SAT 94–98; BMI 39.9
--- NOTE | 2021-07-18 14:40 | ED.EXTPRO ---
HPI - Extremity Problem General Chief complaint: Extremity Problem,Nontraumatic Stated complaint: Sweating, Freezing, Thing on Inner Rt Thigh Time Seen by Provider: 07/18/21 14:37 Source: patient Mode of arrival: Ambulatory Limitations: no limitations History of Present Illness HPI Narrative: Patient is a 40-year-old male history of diabetes, gout, pulmonary embolism earlier this year was previously on Eliquis. 2-3 weeks of presenting today with right leg redness and swelling. He says about 3 days ago he noticed a pimple on his right upper medial thigh, however over the last 1-2 days a has at least doubled in size increased pain. He has had some fever and chills as well. He denies any chest pain cough or shortness of breath. He takes chronic pain medications it does not seem to be helping. Related Data Home Medications Medication Instructions Recorded Confirmed Krystexxa 1 mg IV 2XW 12/07/20 01/27/21 allopurinol 300 mg tablet 300 mg TID 12/07/20 01/27/21 apixaban 5 mg tablet (Eliquis) 5 mg PO BID 12/07/20 01/27/21 colchicine 0.6 mg tablet 0.6 mg PO DAILY 12/07/20 01/27/21 hydrocodone 10 mg-acetaminophen 1 tab PO Q6HR 12/07/20 01/27/21 325 mg tablet metformin 500 mg tablet 500 mg PO BID 12/07/20 01/27/21 sildenafil 100 mg tablet (Viagra) See Rx Instructions .ROUTE 12/07/20 01/27/21 .COMPLEX PRN lisinopril 20 mg tablet 20 mg PO DAILY 01/27/21 01/27/21 Allergies Allergy/AdvReac Type Severity Reaction Status Date / Time pegloticase [From Krystexxa] Allergy Severe Anaphylaxis Verified 01/27/21 10:35 cephalexin [From Keflex] Allergy Verified 01/27/21 10:35 codeine Allergy Verified 01/27/21 10:35 [From Tylenol-Codeine #3] Review of Systems Review of Systems Narrative: GENERAL: Denies chills, fatigue, malaise, fever, sweats, travel HEENT: Denies sinus pain, ear pain, sore throat, difficulty swallowing, neck pain RESPIRATORY: Denies dyspnea, cough, wheezing, hemoptysis, sputum. CARDIOVASCULAR: Denies chest pain, palpitations, orthopnea, edema GASTROINTESTINAL: Denies nausea, vomiting, abdominal pain, diarrhea, constipation, melena. : Denies dysuria, frequency, incontinence, hematuria, urinary retention, flank pain. MUSCULOSKELETAL: Denies weakness, joint pain, or bony pain SKIN: See HPI NEUROLOGIC: Denies weakness, dizziness, headache, numbness, change in speech, confusion PSYCHIATRIC: No concerning psychosocial issues. 12 point review of systems is negative except for those stated above and HPI Patient History Medical History Anxiety Cellulitis Chronic back pain Degenerative arthritis Degenerative disorder of bone Depression Diabetes Gout Psoriatic arthritis Rheumatoid arthritis Surgical History History of knee surgery History of surgery on wrist Social History household members: significant other Smoking Status: Former smoker alcohol intake: former Smoking Status: Former smoker Substance Use Type: marijuana Exam Initial Vital Signs Initial Vital Signs: Vital Signs Temperature 98.3 F 07/18/21 14:35 Pulse Rate 91 H 07/18/21 14:35 Respiratory Rate 20 07/18/21 14:35 Blood Pressure 141/73 H 07/18/21 14:35 Pulse Oximetry 98 07/18/21 14:35 GENERAL: Alert 40-year-old male BMI 40 in [no acute] distress. HEENT: Head atraumatic,EOMI, pupils reactive, face symmetric, moist mucous membranes CARDIOVASCULAR: Regular rate and rhythm without murmurs, rubs or gallops. RESPIRATORY: Breath sounds equal bilaterally, no wheezes rales or rhonchi. ABDOMEN: Soft, nontender. Normoactive bowel sounds all 4 quadrants. No guarding or rebound. EXTREMITIES: Normal range of motion, no clubbing or edema. Neurovascularly intact NEUROLOGICAL: Alert and oriented x4.Normal gait and speech SKIN: Upper medial thigh 18 cm x 12 cm of erythema he has got induration in significant pain. It does not extend into the inguinal area and does not involve scrotum Course Orders Ordered: ED Orders 07/18/21 14:43 Complete Blood Count AUTO DIFF Stat Comprehensive Metabolic Panel Stat Lactate (Lactic Acid) Stat Procalcitonin Stat 07/18/21 14:57 Blood Culture Stat 07/18/21 16:23 CT LE RT w con Stat 07/18/21 16:37 COVID19 - ADMIT ([employer] swab/PCR) Stat COVID19 -Nasal swab/Pre-Proc Stat Acetaminophen (Acetaminophen 325 Mg Tablet) 650 mg PO Q6HR PRN PRN Reason: Fever/Mild Pain (1-3) Dextrose (Dextrose 50 % In Water 25 Gm/50 Ml Syringe) 25 gm IV PRN PRN PRN Reason: Hypoglycemia Enoxaparin Sodium (Enoxaparin 40 Mg/0.4 Ml Syringe) 40 mg SUBCUT DAILY AMINA Hydromorphone HCl (Hydromorphone 1 Mg Inj) 1 mg IV Q3H PRN PRN Reason: Pain, Severe (7-10) Clindamycin Phosphate (Cleocin) 600 mg in 50 mls @ 50 mls/hr IV Q8H AMINA Meropenem 1 gm/ Sodium (Chloride) 100 mls @ 200 mls/hr IV Q8H AMINA Insulin Glargine (Insulin Glargine 100 Unit/Ml 3ml Pen) 10 unit SUBCUT 2100 AMINA Insulin Human Lispro (Insulin Lispro 100 Unit/Ml 3ml Vial) 0 unit SUBCUT ACHS AMINA; Protocol Naloxone HCl (Naloxone 0.4 Mg/Ml Vial) 0.2 mg IV Q2MIN PRN PRN Reason: Opiate Reversal Ondansetron HCl (Ondansetron 4 Mg/2 Ml Inj) 4 mg IV Q8HR PRN PRN Reason: Nausea And Vomiting Oxycodone HCl (Oxycodone Ir 5 Mg Tablet) 5 mg PO Q6HR PRN PRN Reason: Pain, Moderate (4-6) Discontinued Medications Hydromorphone HCl (Hydromorphone 1 Mg Inj) 1 mg IV NOW ONE Stop: 07/18/21 15:05 Last Admin: 07/18/21 15:11 Dose: 1 mg Documented by: TUNG Hydromorphone HCl (Hydromorphone 1 Mg Inj) 1 mg IV Q6H PRN PRN Reason: Pain, Severe (7-10) Levofloxacin (Levaquin) 750 mg in 150 mls @ 100 mls/hr IV NOW ONE Stop: 07/18/21 16:25 Last Infusion: 07/18/21 16:50 Dose: 0 mls/hr Documented by: Admin: 07/18/21 15:11 Dose: 100 mls/hr Documented by: TUNG Vancomycin HCl/Dextrose (Vancomycin) 2,000 mg in 400 mls @ 200 mls/hr IV NOW ONE Stop: 07/18/21 16:56 Sodium Chloride (Normal Saline 0.9%) 1,000 mls @ 1,000 mls/hr IV BOLUS ONE Stop: 07/18/21 17:22 Last Admin: 07/18/21 18:05 Dose: 1,000 mls/hr Documented by: PEÑA Vital Signs Vital signs: Vital Signs - 8 hr 07/18/21 14:35 07/18/21 14:37 07/18/21 15:00 Temperature 98.3 F Pulse Rate 91 H 91 H 98 H Respiratory Rate 20 Blood Pressure 141/73 H 139/73 Pulse Oximetry 98 96 95 07/18/21 15:30 07/18/21 16:00 Temperature Pulse Rate 88 91 H Respiratory Rate Blood Pressure 134/64 130/70 Pulse Oximetry 94 95 MDM - Extremity (Nontraumatic) Lab Data Result diagrams: 07/18/21 14:43 07/18/21 14:43 Labs: Lab Results 07/18/21 07/18/21 07/18/21 Range/Units 14:43 14:43 14:43 WBC 11.7 H (4.5-11.0) X10^3/uL RBC 5.10 (4.5-5.9) X10^6/uL Hgb 13.8 (13.5-17.5) g/dL Hct 43.4 (41-53) % MCV 85.1 (80-100) fL MCH 27.0 (26-34) PG MCHC 31.8 (30-36) % RDW 13.8 (11.6-14.8) % Plt Count 189 (150-400) X10^3/uL Neut % (Auto) 73.7 (50-75) % Lymph % (Auto) 18.4 L (25-40) % [place] % (Auto) 6.6 (3-14) % Eos % (Auto) 0.9 L (2-4) % Baso % (Auto) 0.4 (0-2) % Neut # (Auto) 8600 H (7782-6606) /uL Lymph # (Auto) 2200 (5332-0181) /uL [place] # (Auto) 800 (0-900) /uL Eos # (Auto) 100 (0-450) /uL Baso # (Auto) 0 (0-100) /uL Sodium 134 L (137-145) mmol/L Potassium 4.4 (3.4-5.1) mmol/L Chloride 100 (98-107) mmol/L Carbon Dioxide 22 (22-32) mmol/L BUN 13 (9-20) mg/dL Creatinine 0.72 (0.66-1.25) mg/dL Estimated GFR > 60.0 (>60) mL/min BUN/Creatinine Ratio 18.1 (6-22) Glucose 423 H (70-100) mg/dL Lactate 2.4 H (0.7-2.1) mmol/L Calcium 9.0 (8.4-10.2) mg/dL Total Bilirubin 1.1 (0.2-1.3) mg/dL AST 32 (17-59) IU/L ALT 37 (<50) IU/L Alkaline Phosphatase 90 (38-126) U/L Total Protein 7.8 (6.3-8.2) g/dL Albumin 4.4 (3.5-5.0) g/dL Globulin 3.4 (1.7-4.1) g/dL Albumin/Globulin Ratio 1.3 (1.0-2.8) Procalcitonin (<0.5) ng/mL 07/18/21 Range/Units 14:43 WBC (4.5-11.0) X10^3/uL RBC (4.5-5.9) X10^6/uL Hgb (13.5-17.5) g/dL Hct (41-53) % MCV (80-100) fL MCH (26-34) PG MCHC (30-36) % RDW (11.6-14.8) % Plt Count (150-400) X10^3/uL Neut % (Auto) (50-75) % Lymph % (Auto) (25-40) % [place] % (Auto) (3-14) % Eos % (Auto) (2-4) % Baso % (Auto) (0-2) % Neut # (Auto) (4895-3615) /uL Lymph # (Auto) (7619-1776) /uL [place] # (Auto) (0-900) /uL Eos # (Auto) (0-450) /uL Baso # (Auto) (0-100) /uL Sodium (137-145) mmol/L Potassium (3.4-5.1) mmol/L Chloride (98-107) mmol/L Carbon Dioxide (22-32) mmol/L BUN (9-20) mg/dL Creatinine (0.66-1.25) mg/dL Estimated GFR (>60) mL/min BUN/Creatinine Ratio (6-22) Glucose (70-100) mg/dL Lactate (0.7-2.1) mmol/L Calcium (8.4-10.2) mg/dL Total Bilirubin (0.2-1.3) mg/dL AST (17-59) IU/L ALT (<50) IU/L Alkaline Phosphatase (38-126) U/L Total Protein (6.3-8.2) g/dL Albumin (3.5-5.0) g/dL Globulin (1.7-4.1) g/dL Albumin/Globulin Ratio (1.0-2.8) Procalcitonin 0.14 (<0.5) ng/mL Point of Care Testing Glucose POC [address] LE: Radiologist's Impression: PROCEDURE:? CT LE RT W CON ? INDICATIONS:? abcess and cellulitis ? TECHNIQUE:? After the uneventful intravenous administration of non ionic iodinated contrast, contiguous axial CT images were performed of the right leg.? Multiplanar reformats were provided ? COMPARISON:? [facility], CT, CT LE RT WO CON, 08/11/2020, 16:21. ? FINDINGS:? Image quality:? Excellent.? ? Bones:? There is no acute fracture or dislocation.? There is lateral deviation and patellar tilt of the patellofemoral compartment.? There is tricompartmental osteophytosis.? Mild joint space loss of the patellofemoral and medial compartment.? There is moderate degenerative changes of the hip.? No suspicious periosteal reaction. ? Soft tissues:? Soft tissues of the lower abdomen/pelvis demonstrate no acute abnormality. ?Subcentimeter short axis right iliac and inguinal chain lymph nodes.? 0 likely reactive. ?Bilateral fat containing inguinal hernias. ? Within the medial soft tissues of the proximal to mid thigh there is diffuse soft tissue edema with mild skin thickening.? No subcutaneous emphysema.? Small amount of likely fluid is noted measuring greater than simple free fluid without peripheral enhancement.? This measures approximately 3.1 x 1.0 x 1.7 centimeters. ? IMPRESSION:? ? Findings most consistent with cellulitis of the medial right proximal to mid thigh.? There is small region of likely fluid noted within the subcutaneous soft tissues which is greater than simple fluid without peripheral enhancement and may represent phlegmon .? No definite abscess formation. ? Moderate tricompartment osteoarthritis of the knee.? Moderate degenerative osteoarthritis of the hip.? ? ? Dictated by: Ramo Barrera D.O. on 07/18/2021 at 16:19 ?? [facility] Narrative Medical decision making narrative: Patient has large area of erythema and abscess in the upper right medial thigh very close to his scrotum but does not involve the scrotum. Bedside ultrasound does show abscess along with cellulitis. At this time I do not have concern for Demetrius's gangrene. Patient remains hemodynamically stable in the emergency department mild elevation of lactic acid and procalcitonin a leukocytosis of 11. Based on location and size I believe patient would benefit from OR I&D. 1600 Dr. Arroyo surgery updated patient's symptoms test results at this time would benefit from surgical I and D. recommends admitting to Medicine and likely OR tomorrow Dr. Jacob, updated on surgery recommendations requesting CT prior to admission. Discharge Plan Departure Patient Disposition: Admitted As Inpatient Clinical Impression: Cellulitis and abscess of right leg Admit Date/Time: 07/18/21 16:26 Admit Provider: Sukhdev Jacob
[2021-07-18 15:07] LABS: Add Manual Diff / Slide Review NO; Basophils Absolute Auto 0 /uL (0-100); Basophils Percent Auto 0.4 % (0-2); Eosinophils Absolute Auto 100 /uL (0-450); Eosinophils Percent Auto 0.9 % (2-4); Hematocrit 43.4 % (41-53); Hemoglobin 13.8 g/dL (13.5-17.5); Lymphocytes Absolute Auto 2200 /uL (1100-4500); Lymphocytes Percent Auto 18.4 % (25-40); Mean Corpuscular HGB Conc 31.8 % (30-36); Mean Corpuscular Volume 85.1 fL (80-100); Monocytes Absolute Auto 800 /uL (0-900); Monocytes Percent Auto 6.6 % (3-14); Neutrophils Absolute Auto 8600 /uL (1500-7000); Neutrophils Percent Auto 73.7 % (50-75); Platelet Count 189 X10^3/uL (150-400); Red Cell Distribution Width 13.8 % (11.6-14.8); White Blood Cell Count 11.7 X10^3/uL (4.5-11.0)
[2021-07-18 15:11] LABS: Lactate (Lactic Acid) 2.4 mmol/L (0.7-2.1)
[2021-07-18] MEDS: levoFLOXacin 750 MG/150 ML PIGGYBACK 100 MG IV (15:11)
[2021-07-18] MEDS: HYDROMORPHONE 1 MG INJ IV ×3 (15:11→22:44)
[2021-07-18 15:12] LABS: Alanine Aminotransferase 37 IU/L (<50); Albumin 4.4 g/dL (3.5-5.0); Albumin Globulin Ratio 1.3 (1.0-2.8); Alkaline Phosphatase 90 U/L (38-126); Aspartate Aminotransferase 32 IU/L (17-59); BUN Creatinine Ratio 18.1 (6-22); Bilirubin Total 1.1 mg/dL (0.2-1.3); Blood Urea Nitrogen 13 mg/dL (9-20); Carbon Dioxide 22 mmol/L (22-32); Chloride 100 mmol/L (98-107); Estimated Glomerular Filt Rate > 60.0 mL/min (>60); Globulin 3.4 g/dL (1.7-4.1); Glucose 423 mg/dL (70-100); HEMOLYSIS < 15 (0-50); Potassium 4.4 mmol/L (3.4-5.1); Sodium 134 mmol/L (137-145); Total Protein 7.8 g/dL (6.3-8.2)
--- NOTE | 2021-07-18 16:23 | DI.CT.S_ITS ---
PROCEDURE: CT LE RT W CON INDICATIONS: abcess and cellulitis TECHNIQUE: After the uneventful intravenous administration of non ionic iodinated contrast, contiguous axial CT images were performed of the right leg. Multiplanar reformats were provided COMPARISON: [facility], [place], CT LE RT WO CON, 08/11/2020, 16:21. FINDINGS: Image quality: Excellent. Bones: There is no acute fracture or dislocation. There is lateral deviation and patellar tilt of the patellofemoral compartment. There is tricompartmental osteophytosis. Mild joint space loss of the patellofemoral and medial compartment. There is moderate degenerative changes of the hip. No suspicious periosteal reaction. Soft tissues: Soft tissues of the lower abdomen/pelvis demonstrate no acute abnormality. Subcentimeter short axis right iliac and inguinal chain lymph nodes. 0 likely reactive. Bilateral fat containing inguinal hernias. Within the medial soft tissues of the proximal to mid thigh there is diffuse soft tissue edema with mild skin thickening. No subcutaneous emphysema. Small amount of likely fluid is noted measuring greater than simple free fluid without peripheral enhancement. This measures approximately 3.1 x 1.0 x 1.7 centimeters. IMPRESSION: Findings most consistent with cellulitis of the medial right proximal to mid thigh. There is small region of likely fluid noted within the subcutaneous soft tissues which is greater than simple fluid without peripheral enhancement and may represent phlegmon . No definite abscess formation. Moderate tricompartment osteoarthritis of the knee. Moderate degenerative osteoarthritis of the hip. Dictated by: Ramo Barrera D.O. on 07/18/2021 at 16:19 Approved by: Ramo Barrera D.O. on 07/18/2021 at 16:27
[2021-07-18 16:30] LABS: Procalcitonin 0.14 ng/mL (<0.5)
[2021-07-18 16:59] LABS: COVID19 -Nasal RAPID Negative (Negative)
[2021-07-18 17:01] LABS: Reflexed Lactate in 2 Hours Y
[2021-07-18 17:43] LABS: COVID19 - ADMIT (NP swab/PCR) Negative (Negative)
[2021-07-18] MEDS: SODIUM CHLORIDE 0.9% 1,000 ML 1000 ML IV (18:05)
--- NOTE | 2021-07-18 18:14 | P.HP_ITS ---
History of Present Illness History of Present Illness Date Patient Seen: 07/18/21 Time Patient Seen: 18:14 Chief complaint: Sweating, Freezing, Thing on Inner Rt Thigh Narrative: Mr. Chu Hernández is a 40-year-old male patient with past medical history significant for psoriatic arthritis, rheumatoid arthritis and osteoarthritis, gout, chronic back pain and Womack cyst who presented to the Emergency were room with worsening swelling in his right upper thigh. He also has a prior PE but has been off of Eliquis for 3 weeks now. States 2 days ago he noticed a small pimple which he popped and drained a small amount of serosanguineous fluid, he woke up yesterday and headed expanded and was quite painful and continued to expand quite quickly today so he sought help in the emergency room. He was also feeling sweaty and vaguely fatigued. He endorses subjective fever but never measured his temperature. He denies any shortness of breath, chest pain. In the emergency room, the patient's vital signs is unremarkable. Initial laboratory evaluation showed a mild leukocytosis with WBC 11.7, chemistries were notable for a glucose of 423, but the remainder of his labs were not concerning. There was no anion gap. Procalcitonin was 0.14. COVID-[address] of his right groin showed cellulitis with a small foci of fluid collection but no discrete abscess. Patient was admitted to Medicine for further management and antibiotic therapy. Patient History Medical History Anxiety Cellulitis Chronic back pain Degenerative arthritis Degenerative disorder of bone Depression Diabetes Gout Psoriatic arthritis Rheumatoid arthritis Surgical History History of knee surgery History of surgery on wrist Family & Social History Social History: household members significant other Prior Living Arrangements House Safety & Behavioral: Feels Safe in Current Yes Environment Been Physically Hurt or No Threatened By a Person Suicidal Ideation Description None Suicide Plan Description No Plan Tobacco & Substance use: Tobacco type cigarettes Smoking Status Former smoker alcohol intake former Substance Use Type marijuana Meds Home Medications and Allergies Home Medications Medication Instructions Recorded Confirmed Type allopurinol 300 mg tablet 300 mg TID 12/07/20 07/18/21 History colchicine 0.6 mg tablet 0.6 mg PO DAILY 12/07/20 07/18/21 History hydrocodone 10 mg-acetaminophen 1 tab PO Q6HR 12/07/20 07/18/21 History 325 mg tablet metformin 500 mg tablet 500 mg PO BID 12/07/20 07/18/21 History sildenafil 100 mg tablet (Viagra) See Rx Instructions .ROUTE 12/07/20 01/27/21 History .COMPLEX PRN lisinopril 20 mg tablet 20 mg PO DAILY 01/27/21 07/18/21 History duloxetine 60 mg capsule,delayed 60 mg PO DAILY 07/18/21 07/18/21 History release Allergies Allergy/AdvReac Type Severity Reaction Status Date / Time pegloticase [From Krystexxa] Allergy Severe Anaphylaxis Verified 01/27/21 10:35 cephalexin [From Keflex] Allergy Verified 01/27/21 10:35 codeine Allergy Verified 01/27/21 10:35 [From Tylenol-Codeine #3] Review of Systems Review of Systems Narrative: All other systems reviewed with the patient and are negative unless otherwise stated. Exam Vital Signs (past 8 hours): - 07/18/21 14:35 07/18/21 14:37 07/18/21 15:00 Temperature 98.3 F Pulse Rate 91 H 91 H 98 H Respiratory Rate 20 Blood Pressure 141/73 H 139/73 Pulse Oximetry 98 96 95 07/18/21 15:30 07/18/21 16:00 07/18/21 16:30 Temperature Pulse Rate 88 91 H 93 H Respiratory Rate 20 Blood Pressure 134/64 130/70 129/72 Pulse Oximetry 94 95 96 07/18/21 17:00 Temperature 97.9 F Pulse Rate 85 Respiratory Rate 16 Blood Pressure 124/68 Pulse Oximetry 97 Oxygen Delivery Method Room Air Oxygen Flow Rate 0 Narrative Exam Narrative: GENERAL APPEARANCE: well developed, well nourished, appears ill and slightly pale. Obese with BMI 42.7 HEENT: dry mucous membranes, PERRL, no sclaral icterus. SKIN:? R groin cellulitis, fluctuance under skin tissue near groin, area is warm and tender. No purulent drainage HEART: regular rate and rhythm, S1-S2, no murmur, no rubs or gallops, brisk capillary refill, no edema LUNGS: clear to auscultation bilaterally, no coarseness crackles or wheezing, no cough present CHEST: Symmetrical movement, no accessory muscle use, good tidal volume. ABDOMEN:?S NT ND EXTREMITIES:? moves all extremities, strength is 5/5 and symmetrical, no clubbing or cyanosis. NEUROLOGIC: AAO x4, no focal neurologic deficits, cranial nerves II-XII grossly intact, sensation intact to light touch, hearing grossly normal to speech. PSYCH: Good judgment, good insight, linear thought process, cooperative, appropriate with stable behavior? Objective Labs Result Diagrams: 07/18/21 14:43 07/18/21 14:43 Labs: Laboratory Results - last 24 hr 07/18/21 07/18/21 07/18/21 14:43 14:43 14:43 WBC 11.7 H RBC 5.10 Hgb 13.8 Hct 43.4 MCV 85.1 MCH 27.0 MCHC 31.8 RDW 13.8 Plt Count 189 Neut % (Auto) 73.7 Lymph % (Auto) 18.4 L [place] % (Auto) 6.6 Eos % (Auto) 0.9 L Baso % (Auto) 0.4 Neut # (Auto) 8600 H Lymph # (Auto) 2200 [place] # (Auto) 800 Eos # (Auto) 100 Baso # (Auto) 0 Sodium 134 L Potassium 4.4 Chloride 100 Carbon Dioxide 22 BUN 13 Creatinine 0.72 Estimated GFR > 60.0 BUN/Creatinine Ratio 18.1 Glucose 423 H Lactate 2.4 H Calcium 9.0 Total Bilirubin 1.1 AST 32 ALT 37 Alkaline Phosphatase 90 Total Protein 7.8 Albumin 4.4 Globulin 3.4 Albumin/Globulin Ratio 1.3 Procalcitonin SARS-CoV-2 (PCR) 07/18/21 07/18/21 07/18/21 14:43 16:37 16:37 WBC RBC Hgb Hct MCV MCH MCHC RDW Plt Count Neut % (Auto) Lymph % (Auto) [place] % (Auto) Eos % (Auto) Baso % (Auto) Neut # (Auto) Lymph # (Auto) [place] # (Auto) Eos # (Auto) Baso # (Auto) Sodium Potassium Chloride Carbon Dioxide BUN Creatinine Estimated GFR BUN/Creatinine Ratio Glucose Lactate Calcium Total Bilirubin AST ALT Alkaline Phosphatase Total Protein Albumin Globulin Albumin/Globulin Ratio Procalcitonin 0.14 SARS-CoV-2 (PCR) Negative Negative 07/18/21 17:20 WBC RBC Hgb Hct MCV MCH MCHC RDW Plt Count Neut % (Auto) Lymph % (Auto) [place] % (Auto) Eos % (Auto) Baso % (Auto) Neut # (Auto) Lymph # (Auto) [place] # (Auto) Eos # (Auto) Baso # (Auto) Sodium Potassium Chloride Carbon Dioxide BUN Creatinine Estimated GFR BUN/Creatinine Ratio Glucose Lactate 2.0 Calcium Total Bilirubin AST ALT Alkaline Phosphatase Total Protein Albumin Globulin Albumin/Globulin Ratio Procalcitonin SARS-CoV-2 (PCR) Assessment & Plan Assessment & Plan narrative: 1. RLE cellulitis, possible abscess, possible necrotizing infection. - colton, vanc, and clinda while concern for possible necrotizing infection given rapid progression. No crepitus on exam, no necrosis on exam, and CT negative for gas. - area demarcated, continue to follow - general surgery requested to consult, Dr. Arroyo - IV and oral pain management. 2. Diabetes, type 2 - check A1c, glucose >400 on admission. On metformin at home will hold - start lantus 10 units tonight, continue to adjust, provide sliding scale. - patient reports he was previously a borderline diabetic on metformin. 3. Gout, chronic - continue home medications. 4. psoriatic, osteo, and rheumatoid arthritis, chronic - pain medication as noted above 5. chronic low back pain - will be on pain therapy as noted above. 6. Obesity, BMI 42.7, present on admission. - contributes towards infection risk and increases risk of complication should surgical management be needed. I have utilized all available immediate resources to obtain, update, or review the patient's current medications. Code: Full, surrogate decision maker is patient's fiancee Dispo: admit as inpatient. COVID-19 COVID-19 status: Negative Time Spent With Patient Critical Care time: I spent a total of [] minutes of critical care time on this patient's care today; this time is exclusive of procedural time. Quality VTE Deep Vein Thrombosis/Pulmonary Embolism Present on Admission: No MIPS - Admit I confirm the patient?s Advance Care Plan is present, Code status is documented, Surrogate decision maker is in patient?s record [If Yes, STOP here]: Yes
[2021-07-18] MEDS: VANCOMYCIN 2,000 MG/400 ML PIGGYBACK 200 MG IV (19:19)
[2021-07-18] MEDS: ONDANSETRON 4 MG/2 ML INJ IV (19:27)
[2021-07-18] MEDS: allopurinoL 300 MG TABLET PO (21:10)
[2021-07-18] MEDS: MEROPENEM 1 GM in SODIUM CHLORIDE 0.9% 100 ML 200 ML IV (21:14)
[2021-07-18] MEDS: INSULIN LISPRO 100 UNIT/ML 3ML VIAL SUBCUT (21:36)
[2021-07-18] MEDS: INSULIN GLARGINE 100 UNIT/ML 3ML PEN 10 UNIT SUBCUT (21:37)
--- NOTE | 2021-07-18 23:45 | PC.ADMIT ---
[facility] Admission Note: Patient arrived to floor at 1700 from ER. Alert and oriented, able to make needs known. Oriented to room, shown how to use call light and brakes on bed are locked. The patient,Chu Hernández,40 y/o, was given written information regarding hospital policies, unit procedures and contact persons. Patient's smoking status: Former smoker. Vital Signs - 8 hr 07/18/21 16:00 07/18/21 16:30 07/18/21 17:00 Temperature 97.9 F Pulse Rate 91 H 93 H 85 Respiratory Rate 20 16 Blood Pressure 130/70 129/72 124/68 Pulse Oximetry 95 96 97 07/18/21 17:55 07/18/21 20:51 07/18/21 21:55 Temperature 98.7 F Pulse Rate 86 Respiratory Rate 16 Blood Pressure 103/43 L Pulse Oximetry 97 94 94
[2021-07-19] VITALS (16 sets, daily range): BP systolic 96–145; BP diastolic 56–87; PULSE 77–97; RESP 12–20; TEMP 36.2–37.5; O2SAT 93–98
[2021-07-19] MEDS: CLINDAMYCIN 600 MG/50 ML PIGGYBACK 50 MG IV ×4 (00:08→23:05)
[2021-07-19] MEDS: OXYCODONE IR 5 MG TABLET PO ×2 (00:14→06:08)
[2021-07-19] MEDS: HYDROMORPHONE 1 MG INJ IV ×3 (01:44→07:49)
[2021-07-19] MEDS: MEROPENEM 1 GM in SODIUM CHLORIDE 0.9% 100 ML 200 ML IV ×3 (04:48→21:03)
[2021-07-19 05:19] LABS: Add Manual Diff / Slide Review NO; Basophils Absolute Auto 0 /uL (0-100); Basophils Percent Auto 0.4 % (0-2); Eosinophils Absolute Auto 300 /uL (0-450); Eosinophils Percent Auto 2.5 % (2-4); Hematocrit 41.1 % (41-53); Lymphocytes Absolute Auto 2800 /uL (1100-4500); Lymphocytes Percent Auto 24.2 % (25-40); Mean Corpuscular HGB Conc 31.7 % (30-36); Mean Corpuscular Hemoglobin 26.9 PG (26-34); Monocytes Absolute Auto 1000 /uL (0-900); Monocytes Percent Auto 8.6 % (3-14); Neutrophils Absolute Auto 7600 /uL (1500-7000); Neutrophils Percent Auto 64.3 % (50-75); Platelet Count 187 X10^3/uL (150-400); Red Blood Cell Count 4.83 X10^6/uL (4.5-5.9); Red Cell Distribution Width 13.9 % (11.6-14.8); White Blood Cell Count 11.8 X10^3/uL (4.5-11.0)
[2021-07-19 05:24] LABS: Hemoglobin A1C% w Est Avg Glu 8.9 % (4.0-6.0)
[2021-07-19 05:29] LABS: Alanine Aminotransferase 33 IU/L (<50); Albumin 4.1 g/dL (3.5-5.0); Albumin Globulin Ratio 1.3 (1.0-2.8); Alkaline Phosphatase 68 U/L (38-126); Aspartate Aminotransferase 28 IU/L (17-59); BUN Creatinine Ratio 13.9 (6-22); Bilirubin Total 0.7 mg/dL (0.2-1.3); Blood Urea Nitrogen 11 mg/dL (9-20); Calcium 9.2 mg/dL (8.4-10.2); Carbon Dioxide 28 mmol/L (22-32); Chloride 99 mmol/L (98-107); Estimated Glomerular Filt Rate > 60.0 mL/min (>60); Globulin 3.2 g/dL (1.7-4.1); Glucose 181 mg/dL (70-100); HEMOLYSIS < 15 (0-50); Magnesium 1.8 mg/dL (1.6-2.3); Potassium 4.5 mmol/L (3.4-5.1); Sodium 135 mmol/L (137-145); Total Protein 7.3 g/dL (6.3-8.2)
[2021-07-19 05:41] LABS: C-Reactive Protein Quant 14.4 mg/dL (<1.0); Erythrocyte Sedimentation Rate 38 MM/HR (0-15)
[2021-07-19] MEDS: lisinopriL 20 MG TABLET PO (08:46)
[2021-07-19] MEDS: DULOXETINE 30 MG CAPSULE 60 MG PO (08:46)
[2021-07-19] MEDS: HYDROMORPHONE 1 MG INJ 2 MG IV ×5 (08:47→22:08)
[2021-07-19] MEDS: ONDANSETRON 4 MG/2 ML INJ IV ×2 (08:56→19:27)
--- NOTE | 2021-07-19 09:24 | PM.PN.1 ---
Subjective Subjective Date Patient Seen: 07/19/21 Time Patient Seen: 09:24 Interval history: Still with continued pain. No progression of rash. Still feels ill with generalized malaise. Afebrile overnight. No acute events. Exam Vital Signs (past 8 hours): - 07/19/21 03:53 07/19/21 05:00 07/19/21 07:32 Temperature 97.9 F 97.2 F L Pulse Rate 79 77 Respiratory Rate 16 17 Blood Pressure 96/67 103/82 Pulse Oximetry 95 95 96 Oxygen Delivery Method Room Air Oxygen Flow Rate 0 Narrative Exam Narrative: GENERAL APPEARANCE: well developed, well nourished, appears ill and slightly pale. Obese with BMI 42.7 HEENT: moist mucous membranes, PERRL, no sclaral icterus. SKIN:? R groin cellulitis, fluctuance under skin tissue near groin, area is warm and tender. No purulent drainage HEART: regular rate and rhythm, S1-S2, no murmur, no rubs or gallops, brisk capillary refill, no edema LUNGS: clear to auscultation bilaterally, no coarseness crackles or wheezing, no cough present CHEST: Symmetrical movement, no accessory muscle use, good tidal volume. ABDOMEN:?S NT ND EXTREMITIES:? moves all extremities, strength is 5/5 and symmetrical, no clubbing or cyanosis. NEUROLOGIC: AAO x4, no focal neurologic deficits, cranial nerves II-XII grossly intact, sensation intact to light touch, hearing grossly normal to speech. PSYCH: Good judgment, good insight, linear thought process, cooperative, appropriate with stable behavior? Objective Labs Result Diagrams: 07/19/21 04:52 07/19/21 04:52 Labs: Laboratory Results - last 24 hr 07/18/21 07/18/21 07/18/21 14:43 14:43 14:43 WBC 11.7 H RBC 5.10 Hgb 13.8 Hct 43.4 MCV 85.1 MCH 27.0 MCHC 31.8 RDW 13.8 Plt Count 189 Neut % (Auto) 73.7 Lymph % (Auto) 18.4 L [place] % (Auto) 6.6 Eos % (Auto) 0.9 L Baso % (Auto) 0.4 Neut # (Auto) 8600 H Lymph # (Auto) 2200 [place] # (Auto) 800 Eos # (Auto) 100 Baso # (Auto) 0 ESR Sodium 134 L Potassium 4.4 Chloride 100 Carbon Dioxide 22 BUN 13 Creatinine 0.72 Estimated GFR > 60.0 BUN/Creatinine Ratio 18.1 Glucose 423 H Hemoglobin A1c Lactate 2.4 H Calcium 9.0 Magnesium Total Bilirubin 1.1 AST 32 ALT 37 Alkaline Phosphatase 90 C-Reactive Protein Total Protein 7.8 Albumin 4.4 Globulin 3.4 Albumin/Globulin Ratio 1.3 Procalcitonin SARS-CoV-2 (PCR) 07/18/21 07/18/21 07/18/21 14:43 16:37 16:37 WBC RBC Hgb Hct MCV MCH MCHC RDW Plt Count Neut % (Auto) Lymph % (Auto) [place] % (Auto) Eos % (Auto) Baso % (Auto) Neut # (Auto) Lymph # (Auto) [place] # (Auto) Eos # (Auto) Baso # (Auto) ESR Sodium Potassium Chloride Carbon Dioxide BUN Creatinine Estimated GFR BUN/Creatinine Ratio Glucose Hemoglobin A1c Lactate Calcium Magnesium Total Bilirubin AST ALT Alkaline Phosphatase C-Reactive Protein Total Protein Albumin Globulin Albumin/Globulin Ratio Procalcitonin 0.14 SARS-CoV-2 (PCR) Negative Negative 07/18/21 07/19/21 07/19/21 17:20 04:52 04:52 WBC 11.8 H RBC 4.83 Hgb 13.0 L Hct 41.1 MCV 85.0 MCH 26.9 MCHC 31.7 RDW 13.9 Plt Count 187 Neut % (Auto) 64.3 Lymph % (Auto) 24.2 L [place] % (Auto) 8.6 Eos % (Auto) 2.5 Baso % (Auto) 0.4 Neut # (Auto) 7600 H Lymph # (Auto) 2800 [place] # (Auto) 1000 H Eos # (Auto) 300 Baso # (Auto) 0 ESR Sodium 135 L Potassium 4.5 Chloride 99 Carbon Dioxide 28 BUN 11 Creatinine 0.79 Estimated GFR > 60.0 BUN/Creatinine Ratio 13.9 Glucose 181 H D Hemoglobin A1c Lactate 2.0 Calcium 9.2 Magnesium 1.8 Total Bilirubin 0.7 AST 28 ALT 33 Alkaline Phosphatase 68 C-Reactive Protein Total Protein 7.3 Albumin 4.1 Globulin 3.2 Albumin/Globulin Ratio 1.3 Procalcitonin SARS-CoV-2 (PCR) 07/19/21 07/19/21 07/19/21 04:52 04:52 04:52 WBC RBC Hgb Hct MCV MCH MCHC RDW Plt Count Neut % (Auto) Lymph % (Auto) [place] % (Auto) Eos % (Auto) Baso % (Auto) Neut # (Auto) Lymph # (Auto) [place] # (Auto) Eos # (Auto) Baso # (Auto) ESR 38 H Sodium Potassium Chloride Carbon Dioxide BUN Creatinine Estimated GFR BUN/Creatinine Ratio Glucose Hemoglobin A1c 8.9 H Lactate Calcium Magnesium Total Bilirubin AST ALT Alkaline Phosphatase C-Reactive Protein 14.4 H Total Protein Albumin Globulin Albumin/Globulin Ratio Procalcitonin SARS-CoV-2 (PCR) [facility] Medical History Anxiety Cellulitis Chronic back pain Degenerative arthritis Degenerative disorder of bone Depression Diabetes Gout Psoriatic arthritis Rheumatoid arthritis Surgical History History of knee surgery History of surgery on wrist Social History household members: significant other Smoking Status: Former smoker alcohol intake: former Assessment & Plan Assessment & Plan narrative: 1. RLE cellulitis, possible abscess, possible necrotizing infection. ?- colton, vanc, and clinda while concern for possible necrotizing infection given rapid progression. No crepitus on exam, no necrosis on exam, and CT negative for gas. ?- area demarcated, continue to follow, stable today. ?- general surgery requested to consult, Dr. Arroyo. ?- IV and oral pain management for now. 2. Diabetes, type 2 ?- A1c 8.9%, glucose >400 on admission. On metformin at home will hold ?- started lantus 10 units tonight, continue to adjust, provide sliding scale. Glucose 181 this AM will continue current dosing for now. ?- patient reports he was previously a borderline diabetic on metformin. - dietary consultation. Consider discharge on insulin vs combination oral therapy with metformin plus another oral agent on discharge. 3. Gout, chronic ?- continue home medications. 4. psoriatic, osteo, and rheumatoid arthritis, chronic ?- pain medication as noted above 5. chronic low back pain ?- will be on pain therapy as noted above. 6. Obesity, BMI 42.7, present on admission. ?- contributes towards infection risk and increases risk of complication should surgical management be needed. I have utilized all available immediate resources to obtain, update, or review the patient's current medications. Code: Full, surrogate decision maker is patient's fiancee Dispo: admitted as inpatient. Time Spent With Patient Critical Care time: I spent a total of [] minutes of critical care time on this patient's care today; this time is exclusive of procedural time. Quality VTE Deep Vein Thrombosis/Pulmonary Embolism Present on Admission: No
--- NOTE | 2021-07-19 09:27 | PC.NURSE ---
Addendum entered by Manuela Lewis R.N. 07/19/21 09:32: NO COVERAGE FOR AM BLOOD SUGAR DUE TO NPO STATUS Original Note: PT C/O PAIN TO RIGHT GROIN AREA WHICH REMAINS ERYTHEMIC AND WARM TO THE TOUCH - OBVIOUSLY TENDER TO PALPATION- MEDICATED WITH IV DILAUDID FOR PAIN WHICH HAS BEEN LESS THAN OR MINIMALLY EFFECTIVE- ORDER RECEIVED FOR INCREASED DOSE AND THIS INITIALLY CAUSED SOME NAUSEA WHICH THEN WAS TREATED WITH IV DILAUDID- PT MADE NPO POST SOME BREAKFAST FOR SCHEDULED OR TIME AT 1715 - PER DR. SCHULER- IV ABX CONTINUE
[2021-07-19] MEDS: INSULIN LISPRO 100 UNIT/ML 3ML VIAL SUBCUT ×3 (13:03→21:10)
[2021-07-19 14:37] LABS: Acinetobacter baumannii Not Detected (Not Detect); Candida albicans Not Detected (Not Detect); Candida glabrata Not Detected (Not Detect); Candida krusei Not Detected (Not Detect); Candida parapsilosis Not Detected (Not Detect); Candida tropicalis Not Detected (Not Detect); E. coli Not Detected (Not Detect); Enterobacter cloacae complex Not Detected (Not Detect); Enterobacteriaceae species Not Detected (Not Detect); Enterococcus species Not Detected (Not Detect); Haemophilus influenzae Not Detected (Not Detect); Listeria monocytogenes Not Detected (Not Detect); Methicillin-resistant gene Detected (Not Detect); Neisseria meningitidis Not Detected (Not Detect); Proteus species Not Detected (Not Detect); Pseudomonas aeruginosa Not Detected (Not Detect); Serratia marcescens Not Detected (Not Detect); Staphylococcus species Detected (Not Detect); Streptococcus agalactiae (Gr B Not Detected (Not Detect); Streptococcus pneumonia Not Detected (Not Detect); Streptococcus pyogenes (Gr A) Not Detected (Not Detect); Streptococcus species Not Detected (Not Detect)
--- NOTE | 2021-07-19 16:27 | CM.DANOTE ---
DCP/Assessment: Reviewed chart. Patient is a 40yr old male admitted to [facility] with right inner thigh infection. PCP is Sammie Colbert. Primary Payor is 1)Medicare 2)Medicaid Spend down program. Met with patient explained CM/SW role. Patient alert and oriented at time of visit. Patient reports that he is completely I in all ADL's unless he has gout outbreak which he then uses crutches prn. Patient resides with tylere/Sherri and plans to d/c home when stable. Patient scheduled to have I&D today. At this time it is unclear if patient will have any d/c planning needs. CM team to continue to follow. P: Home when stable. CM team to continue to follow. KJS Discharge Planning/Care Management Advanced directive, confirm from FAMILY Start: 07/18/21 17:47 Freq: Q24H Status: Complete Protocol: Document 07/19/21 09:19 TJB (Rec: 07/19/21 09:20 TJB [id number]) Advance Directive, confirm on record Time 09:20 Person contacted pt does not have one to obtain Copy received No CM Discharge Assessment Start: 07/19/21 16:23 Freq: Status: Active Protocol: Document 07/19/21 16:24 KJS (Rec: 07/19/21 16:26 KJS [id number]) Discharge Planning Assessment Assigned Field Service Analyst BONNIE Corona Contact Information Sherri [place] (joe) Advance Directives? No Advance Directives on File No History Provided By Patient,Medical Record Prior Living Arrangements House Household Members significant other Type of transporation used prior to Drives own vehicle admit Independent with ADL's Yes Is patient alert and oriented? Yes Caregiver for Another No DME Already Rented / Owned Crutches Comment Patient uses crutches when he has gout flare up. Barriers to Discharge No Discharge Plan Home Transportation Arrangement Family or friend Referrals Initiated Other Additional Comment Too soon to be determined. Whiteboard Updated in Patient Room with Yes name and ext. # of Field Service Analyst Review Status In Process Next Review Type Continued Stay Review
--- NOTE | 2021-07-19 16:43 | PM.CN ---
History of Present Illness Consult details Date Patient Seen: 07/19/21 Time Patient Seen: 16:43 Chief complaint: Sweating, Freezing, Thing on Inner Rt Thigh Reason for consult: abscess right thigh Requesting provider: Sukhdev Jacob Narrative: several days of discomfort of upper right thigh with subsequent redness and swelling. Fevers, anorexia. Is a diabetic. No previous issues of this nature. Chronic pain issues with his back. Meds Home Medications and Allergies Home Medications Medication Instructions Recorded Confirmed Type allopurinol 300 mg tablet 300 mg TID 12/07/20 07/18/21 History colchicine 0.6 mg tablet 0.6 mg PO DAILY 12/07/20 07/18/21 History hydrocodone 10 mg-acetaminophen 1 tab PO Q6HR 12/07/20 07/18/21 History 325 mg tablet metformin 500 mg tablet 500 mg PO BID 12/07/20 07/18/21 History sildenafil 100 mg tablet (Viagra) See Rx Instructions .ROUTE 12/07/20 07/18/21 History .COMPLEX PRN lisinopril 20 mg tablet 20 mg PO DAILY 01/27/21 07/18/21 History duloxetine 60 mg capsule,delayed 60 mg PO DAILY 07/18/21 07/18/21 History release Allergies Allergy/AdvReac Type Severity Reaction Status Date / Time pegloticase [From Krystexxa] Allergy Severe Anaphylaxis Verified 01/27/21 10:35 cephalexin [From Keflex] Allergy Verified 01/27/21 10:35 codeine Allergy Verified 01/27/21 10:35 [From Tylenol-Codeine #3] Review of Systems Review of Systems ROS: Yes All systems reviewed with the patient and are negative except as otherwise documented Exam Vital Signs (past 8 hours): - 07/19/21 09:20 07/19/21 11:41 07/19/21 13:31 Temperature 97.6 F Pulse Rate 89 Respiratory Rate 18 Blood Pressure 104/80 Pulse Oximetry 96 95 98 Oxygen Delivery Method Room Air Oxygen Flow Rate 0 Const General: cooperative and acute distress Nutritional Appearance: overweight Orientation: alert and oriented x3 HENMT Head: normal to inspection, normocephalic and atraumatic Nose: external nose normal Eyes Sclera: sclerae normal Neck Neck: trachea midline Chest Chest: normal inspection of the chest Resp Effort & Inspection: normal respiratory effort and able to speak in complete sentences Cardio Rate: tachycardic Rhythm: regular rhythm GI Inspection: normal to inspection Skin General: elasticity normal and turgor normal Other: right upper thigh abscess Neuro General: patient alert and patient oriented x3 Extrem General: full ROM and capillary refill normal Psych Appearance: grossly normal Attitude: cooperative Judgment: judgment good Objective Labs Result Diagrams: 07/19/21 04:52 07/19/21 04:52 Labs: Laboratory Results - last 24 hr 07/18/21 07/18/21 07/18/21 14:57 16:37 16:37 WBC RBC Hgb Hct MCV MCH MCHC RDW Plt Count Neut % (Auto) Lymph % (Auto) [place] % (Auto) Eos % (Auto) Baso % (Auto) Neut # (Auto) Lymph # (Auto) [place] # (Auto) Eos # (Auto) Baso # (Auto) ESR Sodium Potassium Chloride Carbon Dioxide BUN Creatinine Estimated GFR BUN/Creatinine Ratio Glucose Hemoglobin A1c Lactate Calcium Magnesium Total Bilirubin AST ALT Alkaline Phosphatase C-Reactive Protein Total Protein Albumin Globulin Albumin/Globulin Ratio A. baumannii (PCR) Not detected Dena albicans (PCR) Not detected C. glabrata (PCR) Not detected C. krusei (PCR) Not detected C. parapsilosis (PCR) Not detected C. tropicalis (PCR) Not detected SARS-CoV-2 (PCR) Negative Negative Enterobacteriac sp PCR Not detected E. cloacae complex PCR Not detected Enterococcus sp PCR Not detected E. coli (PCR) Not detected H. influenzae (PCR) Not detected Klebsiella oxytoca PCR Not detected Klebsiella pneumoniae Not detected List. monocytogenes PCR Not detected N. meningitidis (PCR) Not detected Proteus species (PCR) Not detected Serratia marcescens PCR Not detected Staphylococcus sp PCR Detected H Staph aureus (PCR) Not detected mecA-Methicil Res Gene Detected H Streptococcus sp PCR Not detected Group A Strep (PCR) Not detected Strep agalactiae (PCR) Not detected Strep pneumoniae (PCR) Not detected P. aeruginosa (PCR) Not detected Stevie/B-Vanco Res Genes Not Reportable KPC-Carbap Res Gene PCR Not Reportable 07/18/21 07/19/21 07/19/21 17:20 04:52 04:52 WBC 11.8 H RBC 4.83 Hgb 13.0 L Hct 41.1 MCV 85.0 MCH 26.9 MCHC 31.7 RDW 13.9 Plt Count 187 Neut % (Auto) 64.3 Lymph % (Auto) 24.2 L [place] % (Auto) 8.6 Eos % (Auto) 2.5 Baso % (Auto) 0.4 Neut # (Auto) 7600 H Lymph # (Auto) 2800 [place] # (Auto) 1000 H Eos # (Auto) 300 Baso # (Auto) 0 ESR Sodium 135 L Potassium 4.5 Chloride 99 Carbon Dioxide 28 BUN 11 Creatinine 0.79 Estimated GFR > 60.0 BUN/Creatinine Ratio 13.9 Glucose 181 H D Hemoglobin A1c Lactate 2.0 Calcium 9.2 Magnesium 1.8 Total Bilirubin 0.7 AST 28 ALT 33 Alkaline Phosphatase 68 C-Reactive Protein Total Protein 7.3 Albumin 4.1 Globulin 3.2 Albumin/Globulin Ratio 1.3 A. baumannii (PCR) Dena albicans (PCR) C. glabrata (PCR) C. krusei (PCR) C. parapsilosis (PCR) C. tropicalis (PCR) SARS-CoV-2 (PCR) Enterobacteriac sp PCR E. cloacae complex PCR Enterococcus sp PCR E. coli (PCR) H. influenzae (PCR) Klebsiella oxytoca PCR Klebsiella pneumoniae List. monocytogenes PCR N. meningitidis (PCR) Proteus species (PCR) Serratia marcescens PCR Staphylococcus sp PCR Staph aureus (PCR) mecA-Methicil Res Gene Streptococcus sp PCR Group A Strep (PCR) Strep agalactiae (PCR) Strep pneumoniae (PCR) P. aeruginosa (PCR) Stevie/B-Vanco Res Genes KPC-Carbap Res Gene PCR 07/19/21 07/19/21 07/19/21 04:52 04:52 04:52 WBC RBC Hgb Hct MCV MCH MCHC RDW Plt Count Neut % (Auto) Lymph % (Auto) [place] % (Auto) Eos % (Auto) Baso % (Auto) Neut # (Auto) Lymph # (Auto) [place] # (Auto) Eos # (Auto) Baso # (Auto) ESR 38 H Sodium Potassium Chloride Carbon Dioxide BUN Creatinine Estimated GFR BUN/Creatinine Ratio Glucose Hemoglobin A1c 8.9 H Lactate Calcium Magnesium Total Bilirubin AST ALT Alkaline Phosphatase C-Reactive Protein 14.4 H Total Protein Albumin Globulin Albumin/Globulin Ratio A. baumannii (PCR) Dena albicans (PCR) C. glabrata (PCR) C. krusei (PCR) C. parapsilosis (PCR) C. tropicalis (PCR) SARS-CoV-2 (PCR) Enterobacteriac sp PCR E. cloacae complex PCR Enterococcus sp PCR E. coli (PCR) H. influenzae (PCR) Klebsiella oxytoca PCR Klebsiella pneumoniae List. monocytogenes PCR N. meningitidis (PCR) Proteus species (PCR) Serratia marcescens PCR Staphylococcus sp PCR Staph aureus (PCR) mecA-Methicil Res Gene Streptococcus sp PCR Group A Strep (PCR) Strep agalactiae (PCR) Strep pneumoniae (PCR) P. aeruginosa (PCR) Stevie/B-Vanco Res Genes KPC-Carbap Res Gene PCR PFSH Medical History Anxiety Cellulitis Chronic back pain Degenerative arthritis Degenerative disorder of bone Depression Diabetes Gout Psoriatic arthritis Rheumatoid arthritis Surgical History History of knee surgery History of surgery on wrist Social History household members: significant other Tobacco & Substance Use Smoking Status: Former smoker alcohol intake: former Assessment & Plan Assessment & Plan narrative: Overweight diabetic with right thigh abscess. Plan: I and D of right thigh COVID-19 COVID-19 status: Negative Time Spent With Patient Critical Care time: I spent a total of [] minutes of critical care time on this patient's care today; this time is exclusive of procedural time.
--- NOTE | 2021-07-19 17:00 | SUR.OPER ---
Supine on padded OR bed, head on pillow, arms secured on padded arm boards at <90 degrees abduction, legs uncrossed, safety belt at thigh, tape over blanket over lower legs.
--- NOTE | 2021-07-19 17:16 | PM.OP.1 ---
Operative Date/Time/Diagnoses Date of procedure: 07/19/21 Time of procedure: 17:17 Pre-op diagnosis: right upper thigh abscess Post-op diagnosis: same Procedure & Clinicians Procedure: I and d right thigh abscess Same procedure as scheduled: Yes Indications: right thigh abscess Surgeon: Kelli Arroyo Click Yes if Unassisted: Yes Anesthesia Type: General Operative Notes Findings: Large abscess cavity right upper thigh did not involve scrotum Closure Type: not applicable Specimen(s): other (Cultures) Estimated Blood Loss (mL): 15 Blood products transfused: none Procedure in detail: Prep diagnosis: Right upper thigh abscess Postop diagnosis: Same Operative procedure: I and D of right upper thigh abscess with [place] drain placement Surgeon: Calli Arroyo MD Anesthesia: General LMA intubation Findings: Large groin abscess with adenopathy Procedure: Patient was placed in the supine position. Prepped and draped in sterile fashion expose his right upper groin. Fifteen blade was used to incise into the palpable mass. Approximately 30 mL of pus was drained. A quarter-inch [place] drain was placed into the abscess cavity. This was sutured to the skin with 3-0 silk. Upon inspection after the incision I noted another area in the groin that still appeared to have fluctuance. And a incision was created there, area was probed and elicited pus. I probed and created a communication to the abscess cavity so that the [place] drain could provide drainage. Dry dressings were placed. Patient was awakened, extubated, taken to recovery room in stable condition with needle, instrument, sponge counts correct. Specimen: Cultures Blood loss: 15 mL
--- NOTE | 2021-07-19 18:08 | SUR.PHASEI ---
Patient recovered in OR#1 on contact precautions. Pt alert at start of PACU denying pain. Pt right groin with dressing. Pt last dose Propofal as 1700. Transferred to floor where SBAR report given to Julia HATCH including evaluating dressing which has a small amount of serosang drainage.
[2021-07-19] MEDS: LACTATED RINGERS 1,000 ML 42 ML IV (19:08)
[2021-07-19] MEDS: allopurinoL 300 MG TABLET PO (21:02)
[2021-07-19] MEDS: METFORMIN HCL 500 MG TABLET PO (21:02)
[2021-07-19] MEDS: HYDROCODONE/ACET 10/325 TABLET 1 TAB PO (21:02)
[2021-07-19] MEDS: ENOXAPARIN 40 MG/0.4 ML SYRINGE SUBCUT (21:03)
[2021-07-19] MEDS: INSULIN GLARGINE 100 UNIT/ML 3ML PEN 10 UNIT SUBCUT (21:09)
[2021-07-20] VITALS (13 sets, daily range): BP systolic 102–122; BP diastolic 63–75; PULSE 85–92; RESP 16–20; TEMP 35.8–36.7; O2SAT 93–98
[2021-07-20] MEDS: HYDROCODONE/ACET 10/325 TABLET 1 TAB PO ×2 (02:41→08:17)
[2021-07-20] MEDS: HYDROMORPHONE 1 MG INJ 2 MG IV (04:01)
[2021-07-20] MEDS: MEROPENEM 1 GM in SODIUM CHLORIDE 0.9% 100 ML 200 ML IV ×3 (04:22→21:16)
[2021-07-20] MEDS: ONDANSETRON 4 MG/2 ML INJ IV (04:23)
[2021-07-20 05:16] LABS: Add Manual Diff / Slide Review NO; Basophils Absolute Auto 0 /uL (0-100); Basophils Percent Auto 0.4 % (0-2); Eosinophils Absolute Auto 200 /uL (0-450); Hematocrit 39.1 % (41-53); Hemoglobin 12.5 g/dL (13.5-17.5); Lymphocytes Absolute Auto 1700 /uL (1100-4500); Lymphocytes Percent Auto 14.6 % (25-40); Mean Corpuscular HGB Conc 32.1 % (30-36); Mean Corpuscular Hemoglobin 26.9 PG (26-34); Mean Corpuscular Volume 83.8 fL (80-100); Monocytes Absolute Auto 900 /uL (0-900); Monocytes Percent Auto 7.6 % (3-14); Neutrophils Absolute Auto 8900 /uL (1500-7000); Neutrophils Percent Auto 75.4 % (50-75); Platelet Count 218 X10^3/uL (150-400); Red Blood Cell Count 4.67 X10^6/uL (4.5-5.9); Red Cell Distribution Width 13.3 % (11.6-14.8); White Blood Cell Count 11.8 X10^3/uL (4.5-11.0)
[2021-07-20 05:26] LABS: Chloride 98 mmol/L (98-107); HEMOLYSIS < 15 (0-50)
[2021-07-20 05:29] LABS: Alanine Aminotransferase 35 IU/L (<50); Albumin 3.9 g/dL (3.5-5.0); Albumin Globulin Ratio 1.2 (1.0-2.8); Alkaline Phosphatase 78 U/L (38-126); Aspartate Aminotransferase 36 IU/L (17-59); BUN Creatinine Ratio 17.5 (6-22); Bilirubin Total 0.7 mg/dL (0.2-1.3); Blood Urea Nitrogen 11 mg/dL (9-20); Carbon Dioxide 25 mmol/L (22-32); Estimated Glomerular Filt Rate > 60.0 mL/min (>60); Globulin 3.2 g/dL (1.7-4.1); Glucose 219 mg/dL (70-100); Magnesium 1.7 mg/dL (1.6-2.3); Potassium 4.2 mmol/L (3.4-5.1); Sodium 131 mmol/L (137-145); Total Protein 7.1 g/dL (6.3-8.2)
[2021-07-20] MEDS: CLINDAMYCIN 600 MG/50 ML PIGGYBACK 50 MG IV ×3 (05:31→22:41)
--- NOTE | 2021-07-20 07:43 | DI.ECHO.S_ITS ---
[facility] +---------+ : : [address] : : : : [id number] : : : : Phone: [phone]+ Echocardiogram Report + + :Name: LUIS PANDEY Study Date: 07/20/2021 Height: 75 in : :[facility] ReadingLocation: Weight: 341 lb : : Gender: Male BSA: 2.8 m2 : :: 1980 Age: 40 yrs BP: 103/56 mmHg: :Reason For Study: ENDOCARDITIS : :Ordering Physician: KWAN, : :PARKER Performed By: Jaycee Barber : :Referring: PAKRER BOWENS : + + Interpretation Summary The ejection fraction is estimated to be 50-55%. The right ventricle is mildly dilated. The right ventricular systolic function is normal. No significant valvular heart disease noted. If endocarditis is strongly suspected a TRISTON may be requested Procedure: A two-dimensional transthoracic echocardiogram with color flow and Doppler was performed. The study quality was technically difficult. A contrast injection of Definity was performed to improve assessment of LV function. There is no prior echocardiogram noted for this patient. The patient was in sinus rhythm with heart rates between 75-95 bpm during the exam. Left Ventricle: The left ventricle is mildly dilated. There is normal left ventricular wall thickness. The ejection fraction is estimated to be 50-55%. Left ventricular wall motion is normal. Right Ventricle: The right ventricle is mildly dilated. The right ventricular systolic function is normal. Atria: Both atria are normal in size. There is no Doppler evidence for an interatrial shunt. Mitral Valve: The mitral valve is normal in structure and function. There is trace mitral regurgitation. Aortic Valve: The aortic valve opens well. There is no aortic valve stenosis. No aortic regurgitation is present. Tricuspid Valve: The tricuspid valve is not well visualized, but is grossly normal. No tricuspid regurgitation. Pulmonic Valve: The pulmonic valve leaflets are thin and pliable; valve motion is normal. There is mild pulmonic regurgitation. Great Vessels: The aortic root is borderline dilated. The ascending aorta is at the upper limits of normal in size. The inferior vena cava was not visualized. Pericardium/ Pleura There is no pericardial effusion. There is no pleural effusion. MMode/2D Measurements & Calculations LVIDd: 6.3 cm LVOT diam: 2.6 cm LVIDs: 4.6 cm Ao root diam: 3.9 cm FS: 26.5 % asc Aorta Diam: 3.5 cm IVSd: 0.92 cm Ao Arch Diam (Prox Trans): 3.4 cm LVPWd: 0.89 cm LV javed. diameter/BSA (cm/m^2): 2.3 LV sys. diameter/BSA (cm/m^2): 1.7 LA A2 area: 17.2 cm2 RA long axis: 5.0 cm LA A4 area: 18.6 cm2 RA area: 14.2 cm2 LA length (vol): 5.3 cm RA vol: 34.4 ml LA vol: 51.3 ml RA : 12.5 ml/m2 LA vol index: 18.6 ml/m2 RVD1 (basal): 4.6 cm TAPSE: 2.5 cm Doppler Measurements & Calculations Ao V2 max: 125.5 cm/sec LVOT Max Laron: 77.1 cm/sec Ao V2 mean: 91.0 cm/sec LV V1 max P.4 mmHg Ao max P.3 mmHg LV V1 VTI: 13.4 cm Ao mean P.7 mmHg KRISTY(I,D): 3.5 cm2 Ao V2 VTI: 20.9 cm KRISTY(V,D): 3.4 cm2 sev ratio: 0.64 KRISTY indexed to BSA (cm^2/m^2): 1.3 MV E max laron: 72.9 cm/sec PA V2 max: 133.6 cm/sec MV A max laron: 57.0 cm/sec PA V2 mean: 82.5 cm/sec MV E/A: 1.3 PA mean P.1 mmHg Med Peak E' Laron: 8.5 cm/sec PA pr(Accel): 32.8 mmHg E/E' med: 8.5 Lat Peak E' Laron: 8.9 cm/sec E/E' lat: 8.2 E/e' average: 8.4 MV dec time: 0.22 sec SV(LVOT): 73.8 ml Reading Physician:01:51 PM
[2021-07-20] MEDS: ENOXAPARIN 40 MG/0.4 ML SYRINGE SUBCUT ×2 (08:17→21:16)
[2021-07-20] MEDS: allopurinoL 300 MG TABLET PO ×3 (08:18→21:16)
[2021-07-20] MEDS: COLCHICINE 0.6 MG TABLET PO (08:18)
[2021-07-20] MEDS: METFORMIN HCL 500 MG TABLET PO ×2 (08:18→21:16)
[2021-07-20] MEDS: DULOXETINE 30 MG CAPSULE 60 MG PO (08:18)
[2021-07-20] MEDS: INSULIN LISPRO 100 UNIT/ML 3ML VIAL SUBCUT ×4 (08:19→21:19)
[2021-07-20] MEDS: HYDROMORPHONE 1 MG INJ IV ×3 (09:49→16:00)
[2021-07-20] MEDS: OXYCODONE IR 10 MG TABLET PO ×5 (10:50→22:43)
[2021-07-20] MEDS: SODIUM CHLORIDE 0.9% FLUSH 10 ML IV ×2 (13:22→21:16)
--- NOTE | 2021-07-20 15:11 | DIET.PN1 ---
Addendum entered by Gwendolyn Li 07/20/21 15:15: Interventions: 1. Stressed importance of adequate BG control for wound healing potential with A1c in 6-8.0 range. Original Note: Dietary Progress Note Assessment: 40y M admitted for cellulitis requiring I&D c drain placement referred to nutrition for DM education. RD met c pt at bedside, reports being preDM dx Oct 2020 when he was started on metformin 500mg tid. Pt reports he went through DM education at [facility] in Oct 2020, declines further DM education at this time. Alerted pt to carb counts on patient menu, pt affirmed he looked at carb counts when ordering meals and tries to stay within 45-60g CHO most of the time. Pt has hx gouty flares, on colchacine and allopurinol. Feels his attacks occur after eating beef or pork, tries to stick to chicken, fish, and plant-based meats. Ht: 190.5 cm Wt: 155 kg BMI: 39.9 Last BM: 07/20/21 (07/20/21 10:00) MNA: 14 Reji Score: 20 Diet: 07/20/21 Breakfast Carbohydrate Consistent Diet Diet Modifications: Safety Tray needed?: No Carbohydrate level: Medium (3 CHO) Bedtime snack: No Nutrition Percent Meal Consumed 75% 07/18/21 19:23 Labs: RBC 4.67 X10^6/uL (4.5-5.9) 07/20/21 05:00 Hgb 12.5 g/dL (13.5-17.5) L 07/20/21 05:00 Hct 39.1 % (41-53) L 07/20/21 05:00 Creatinine 0.63 mg/dL (0.66-1.25) L 07/20/21 05:00 Hemoglobin A1c 8.9 % (4.0-6.0) H 07/19/21 04:52 Lactate 2.0 mmol/L (0.7-2.1) 07/18/21 17:20 Monitoring/Evaluations: RD available prn Electronically Signed by: Gwendolyn Li 07/20/21 15:11 Clinical Dietitian [address] [id number]
--- NOTE | 2021-07-20 18:08 | P.PN_ITS ---
Subjective Subjective Interval history: Patient complains of pain near the I&D site. Wound culture has shown no growth. He reports that he still has difficulty with ambulation due to pain. Exam Vital Signs (past 8 hours): - 07/20/21 10:39 07/20/21 11:33 07/20/21 14:26 Temperature 98.0 F Pulse Rate 87 Respiratory Rate 18 Blood Pressure 122/69 Pulse Oximetry 95 95 95 07/20/21 15:46 07/20/21 16:55 07/20/21 16:56 Temperature 97 F L 97 F L Pulse Rate 87 87 Respiratory Rate 16 16 Blood Pressure 121/71 121/71 Pulse Oximetry 95 94 94 Oxygen Delivery Method Room Air Oxygen Flow Rate 0 Narrative Exam Narrative: There is minimal erythema around the right thigh I&D site. The tissue around the surgical site is woody. [place] drain remains in place. Objective Labs Result Diagrams: 07/20/21 05:00 07/20/21 05:00 Labs: Laboratory Results - last 24 hr 07/20/21 07/20/21 05:00 05:00 WBC 11.8 H RBC 4.67 Hgb 12.5 L Hct 39.1 L MCV 83.8 MCH 26.9 MCHC 32.1 RDW 13.3 Plt Count 218 Neut % (Auto) 75.4 H Lymph % (Auto) 14.6 L [place] % (Auto) 7.6 Eos % (Auto) 2.0 Baso % (Auto) 0.4 Neut # (Auto) 8900 H Lymph # (Auto) 1700 [place] # (Auto) 900 Eos # (Auto) 200 Baso # (Auto) 0 Sodium 131 L Potassium 4.2 Chloride 98 Carbon Dioxide 25 BUN 11 Creatinine 0.63 L Estimated GFR > 60.0 BUN/Creatinine Ratio 17.5 Glucose 219 H Calcium 9.0 Magnesium 1.7 Total Bilirubin 0.7 AST 36 ALT 35 Alkaline Phosphatase 78 Total Protein 7.1 Albumin 3.9 Globulin 3.2 Albumin/Globulin Ratio 1.2 PFS Medical History Anxiety Cellulitis Chronic back pain Degenerative arthritis Degenerative disorder of bone Depression Diabetes Gout Psoriatic arthritis Rheumatoid arthritis Surgical History History of knee surgery History of surgery on wrist Social History household members: significant other Smoking Status: Former smoker alcohol intake: former Assessment & Plan Assessment and plan (1) Cellulitis and abscess of right leg: Status: Acute Plan: Continue dressing changes as needed When wound erythema is resolved will dc love drain and he will be able to discharge home. Time Spent With Patient Critical Care time: I spent a total of [] minutes of critical care time on this patient's care today; this time is exclusive of procedural time. Quality VTE Deep Vein Thrombosis/Pulmonary Embolism Present on Admission: No
[2021-07-20] MEDS: HYDROMORPHONE 1 MG INJ 0.75 MG IV ×3 (18:40→23:44)
--- NOTE | 2021-07-20 19:55 | PM.PN.1 ---
Subjective Subjective Date Patient Seen: 07/20/21 Time Patient Seen: 08:00 Interval history: He is still having quite significant right groin pain. Exam Vital Signs (past 8 hours): - 07/20/21 14:26 07/20/21 15:46 07/20/21 16:55 Temperature 97 F L Pulse Rate 87 Respiratory Rate 16 Blood Pressure 121/71 Pulse Oximetry 95 95 94 07/20/21 16:56 Temperature 97 F L Pulse Rate 87 Respiratory Rate 16 Blood Pressure 121/71 Pulse Oximetry 94 Oxygen Delivery Method Room Air Oxygen Flow Rate 0 Narrative Exam Narrative: GENERAL APPEARANCE: no acute distress HEART: regular rate and rhythm, no murmurs LUNGS: clear to auscultation bilaterally, no coarseness crackles or wheezing ABDOMEN: soft, nontender, nondistended EXTREMITIES:? moves all extremities, strength is 5/5 and symmetrical, no clubbing or cyanosis. SKIN: mild erythema surrounding I+D site, drain in place Objective Labs Result Diagrams: 07/20/21 05:00 07/20/21 05:00 Labs: Laboratory Results - last 24 hr 07/20/21 07/20/21 05:00 05:00 WBC 11.8 H RBC 4.67 Hgb 12.5 L Hct 39.1 L MCV 83.8 MCH 26.9 MCHC 32.1 RDW 13.3 Plt Count 218 Neut % (Auto) 75.4 H Lymph % (Auto) 14.6 L [place] % (Auto) 7.6 Eos % (Auto) 2.0 Baso % (Auto) 0.4 Neut # (Auto) 8900 H Lymph # (Auto) 1700 [place] # (Auto) 900 Eos # (Auto) 200 Baso # (Auto) 0 Sodium 131 L Potassium 4.2 Chloride 98 Carbon Dioxide 25 BUN 11 Creatinine 0.63 L Estimated GFR > 60.0 BUN/Creatinine Ratio 17.5 Glucose 219 H Calcium 9.0 Magnesium 1.7 Total Bilirubin 0.7 AST 36 ALT 35 Alkaline Phosphatase 78 Total Protein 7.1 Albumin 3.9 Globulin 3.2 Albumin/Globulin Ratio 1.2 PFS Medical History Anxiety Cellulitis Chronic back pain Degenerative arthritis Degenerative disorder of bone Depression Diabetes Gout Psoriatic arthritis Rheumatoid arthritis Surgical History History of knee surgery History of surgery on wrist Social History household members: significant other Smoking Status: Former smoker alcohol intake: former Assessment & Plan Assessment & Plan narrative: 1. RLE cellulitis, possible abscess, possible necrotizing infection. ?- colton, vanc, and clinda while concern for possible necrotizing infection given rapid progression. No crepitus on exam, no necrosis on exam, and CT negative for gas. ?- area demarcated, continue to follow, stable today. ?- I+D done on 06/19 -blood cultures show staph, wound culture shows 1+ GPC 2. Diabetes, type 2 ?- A1c 8.9%, glucose >400 on admission. On metformin at home will hold ?- started lantus 10 units tonight, continue to adjust, provide sliding scale. Glucose 181 this AM will continue current dosing for now. ?- patient reports he was previously a borderline diabetic on metformin. - dietary consultation. Consider discharge on insulin vs combination oral therapy with metformin plus another oral agent on discharge. 3. Gout, chronic ?- continue home medications. 4. psoriatic, osteo, and rheumatoid arthritis, chronic ?- pain medication as noted above 5. chronic low back pain ?- will be on pain therapy as noted above. 6. Obesity, BMI 42.7, present on admission. ?- contributes towards infection risk and increases risk of complication should surgical management be needed. Time Spent With Patient Critical Care time: I spent a total of [] minutes of critical care time on this patient's care today; this time is exclusive of procedural time. Quality VTE Deep Vein Thrombosis/Pulmonary Embolism Present on Admission: No
--- NOTE | 2021-07-20 20:16 | PC.NURSE ---
pt reports has some pain relief with dilaudid 1mg, but it only last for a couple hours. notified GRETTA Nails to change dilaudid to Q2h 0.75mg. apply dressing as needed. I placed 2 ABD pads and secured with tape. love drain intact
[2021-07-20] MEDS: INSULIN GLARGINE 100 UNIT/ML 3ML PEN 10 UNIT SUBCUT (21:18)
[2021-07-21] VITALS (11 sets, daily range): BP systolic 117–140; BP diastolic 66–80; PULSE 80–97; RESP 16–18; TEMP 36.3–36.9; O2SAT 94–97
[2021-07-21] MEDS: OXYCODONE IR 10 MG TABLET PO ×7 (01:27→21:30)
[2021-07-21] MEDS: HYDROMORPHONE 1 MG INJ 0.75 MG IV ×7 (02:40→22:38)
[2021-07-21] MEDS: ACETAMINOPHEN 325 MG TABLET 650 MG PO ×3 (04:59→21:46)
[2021-07-21] MEDS: MEROPENEM 1 GM in SODIUM CHLORIDE 0.9% 100 ML 200 ML IV (05:00)
[2021-07-21 05:25] LABS: Add Manual Diff / Slide Review NO; Basophils Absolute Auto 0 /uL (0-100); Basophils Percent Auto 0.3 % (0-2); Eosinophils Absolute Auto 300 /uL (0-450); Hematocrit 37.8 % (41-53); Hemoglobin 12.3 g/dL (13.5-17.5); Lymphocytes Absolute Auto 2300 /uL (1100-4500); Lymphocytes Percent Auto 23.6 % (25-40); Mean Corpuscular HGB Conc 32.4 % (30-36); Mean Corpuscular Hemoglobin 27.2 PG (26-34); Mean Corpuscular Volume 83.9 fL (80-100); Monocytes Absolute Auto 800 /uL (0-900); Monocytes Percent Auto 8.2 % (3-14); Neutrophils Absolute Auto 6300 /uL (1500-7000); Neutrophils Percent Auto 64.9 % (50-75); Platelet Count 208 X10^3/uL (150-400); Red Blood Cell Count 4.51 X10^6/uL (4.5-5.9); Red Cell Distribution Width 13.7 % (11.6-14.8); White Blood Cell Count 9.7 X10^3/uL (4.5-11.0)
[2021-07-21 05:27] LABS: Alanine Aminotransferase 35 IU/L (<50); Albumin 3.8 g/dL (3.5-5.0); Albumin Globulin Ratio 1.2 (1.0-2.8); Alkaline Phosphatase 90 U/L (38-126); Aspartate Aminotransferase 31 IU/L (17-59); BUN Creatinine Ratio 16.2 (6-22); Bilirubin Total 0.4 mg/dL (0.2-1.3); Blood Urea Nitrogen 11 mg/dL (9-20); Calcium 9.3 mg/dL (8.4-10.2); Carbon Dioxide 28 mmol/L (22-32); Chloride 97 mmol/L (98-107); Estimated Glomerular Filt Rate > 60.0 mL/min (>60); Globulin 3.1 g/dL (1.7-4.1); Glucose 189 mg/dL (70-100); HEMOLYSIS < 15 (0-50); Magnesium 1.6 mg/dL (1.6-2.3); Potassium 4.2 mmol/L (3.4-5.1); Sodium 132 mmol/L (137-145); Total Protein 6.9 g/dL (6.3-8.2)
[2021-07-21] MEDS: CLINDAMYCIN 600 MG/50 ML PIGGYBACK 50 MG IV ×3 (06:49→20:22)
[2021-07-21] MEDS: INSULIN LISPRO 100 UNIT/ML 3ML VIAL SUBCUT ×4 (08:03→21:27)
[2021-07-21] MEDS: DULOXETINE 30 MG CAPSULE 60 MG PO (08:07)
[2021-07-21] MEDS: allopurinoL 300 MG TABLET PO ×3 (08:07→21:30)
[2021-07-21] MEDS: COLCHICINE 0.6 MG TABLET PO (08:07)
[2021-07-21] MEDS: ENOXAPARIN 40 MG/0.4 ML SYRINGE SUBCUT ×2 (08:07→20:22)
[2021-07-21] MEDS: METFORMIN HCL 500 MG TABLET PO (08:08)
[2021-07-21] MEDS: lisinopriL 20 MG TABLET PO (08:08)
--- NOTE | 2021-07-21 08:45 | DI.CT.S_ITS ---
PROCEDURE: CT LE RT W CON INDICATIONS: R groin s/p I+D of abscess TECHNIQUE: After the administration of intravenous contrast, 2 mm axial sections acquired of the right thigh, with coronal and sagittal reformats. COMPARISON: [facility], CT, CT LE RT W CON, 07/18/2021, 16:50. [facility], CT, CT LE RT WO CON, 08/11/2020, 16:21. FINDINGS: Image quality: Excellent. Bones: No acute osseous abnormality. No cortical destruction is seen to suggest osteomyelitis. Degenerative changes are seen in the included lower lumbar spine, the sacroiliac joints, the right hip, and throughout the knee. Soft tissues: Postsurgical changes are seen at the medial right thigh from recent incision and drainage. A small looping tube is seen within the wound. A few foci of surrounding soft tissue gas are most likely related to the recent procedure. There is surrounding soft tissue edema or cellulitis. No involvement of the deeper intermuscular fascial layers is seen. No well-formed fluid collection is seen to suggest significant residual abscess. There the included portions of the pelvis demonstrate no acute abnormality. Multiple right inguinal and external iliac lymph nodes are redemonstrated that are again most likely reactive. The thigh musculature is normal in bulk. Small right knee joint effusion. IMPRESSION: Postsurgical changes are seen at the medial right thigh with surrounding edema or cellulitis. No significant residual fluid collection is seen. No involvement of the deeper intermuscular fascia or osseous structures is seen. Dictated by: Armando Corbett M.D. on 07/21/2021 at 9:25 Approved by: Armando Corbett M.D. on 07/21/2021 at 9:30
--- NOTE | 2021-07-21 09:04 | PM.PN.1 ---
Subjective Subjective Date Patient Seen: 07/21/21 Exam Vital Signs (past 8 hours): - 07/21/21 04:00 07/21/21 05:00 07/21/21 07:52 Temperature 98.5 F 97.4 F L Pulse Rate 92 H 80 Respiratory Rate 18 18 Blood Pressure 117/75 133/80 Pulse Oximetry 94 95 95 Oxygen Delivery Method Room Air Oxygen Flow Rate 0 Objective Labs Result Diagrams: 07/21/21 04:50 07/21/21 04:50 Labs: Laboratory Results - last 24 hr 07/21/21 07/21/21 04:50 04:50 WBC 9.7 RBC 4.51 Hgb 12.3 L Hct 37.8 L MCV 83.9 MCH 27.2 MCHC 32.4 RDW 13.7 Plt Count 208 Neut % (Auto) 64.9 Lymph % (Auto) 23.6 L [place] % (Auto) 8.2 Eos % (Auto) 3.0 Baso % (Auto) 0.3 Neut # (Auto) 6300 Lymph # (Auto) 2300 [place] # (Auto) 800 Eos # (Auto) 300 Baso # (Auto) 0 Sodium 132 L Potassium 4.2 Chloride 97 L Carbon Dioxide 28 BUN 11 Creatinine 0.68 Estimated GFR > 60.0 BUN/Creatinine Ratio 16.2 Glucose 189 H Calcium 9.3 Magnesium 1.6 Total Bilirubin 0.4 AST 31 ALT 35 Alkaline Phosphatase 90 Total Protein 6.9 Albumin 3.8 Globulin 3.1 Albumin/Globulin Ratio 1.2 PFSH Medical History Anxiety Cellulitis Chronic back pain Degenerative arthritis Degenerative disorder of bone Depression Diabetes Gout Psoriatic arthritis Rheumatoid arthritis Surgical History History of knee surgery History of surgery on wrist Social History household members: significant other Smoking Status: Former smoker alcohol intake: former Assessment & Plan Assessment & Plan narrative: Ok to discharge home with love when medically cleared. No growth from OR cultures at this point. One blood culture with staph aureus. Surgery will not see daily. Follow up in clinic 3-5 days for love removal. Time Spent With Patient Critical Care time: I spent a total of [] minutes of critical care time on this patient's care today; this time is exclusive of procedural time. Quality VTE Deep Vein Thrombosis/Pulmonary Embolism Present on Admission: No
[2021-07-21] MEDS: SODIUM CHLORIDE 0.9% FLUSH 10 ML IV ×2 (09:39→21:47)
[2021-07-21] MEDS: VANCOMYCIN 2,000 MG/400 ML PIGGYBACK 200 MG IV ×2 (10:17→21:31)
--- NOTE | 2021-07-21 14:43 | PM.PN.1 ---
Subjective Subjective Date Patient Seen: 07/21/21 Time Patient Seen: 08:00 Interval history: Today he complains of pain in his leg that is not significantly changed. Exam Vital Signs (past 8 hours): - 07/21/21 07:52 07/21/21 09:00 07/21/21 11:53 Temperature 97.4 F L 98.3 F Pulse Rate 80 94 H Respiratory Rate 18 16 Blood Pressure 133/80 123/77 Pulse Oximetry 95 95 95 07/21/21 13:23 Temperature Pulse Rate Respiratory Rate Blood Pressure Pulse Oximetry 95 Oxygen Delivery Method Room Air Oxygen Flow Rate 0 Narrative Exam Narrative: GENERAL APPEARANCE: no acute distress HEART: regular rate and rhythm, no murmurs LUNGS: clear to auscultation bilaterally, no coarseness crackles or wheezing ABDOMEN: soft, nontender, nondistended EXTREMITIES:? moves all extremities, strength is 5/5 and symmetrical, no clubbing or cyanosis. SKIN: mild erythema surrounding I+D site, drain in place Objective Labs Result Diagrams: 07/21/21 04:50 07/21/21 04:50 Labs: Laboratory Results - last 24 hr 07/21/21 07/21/21 04:50 04:50 WBC 9.7 RBC 4.51 Hgb 12.3 L Hct 37.8 L MCV 83.9 MCH 27.2 MCHC 32.4 RDW 13.7 Plt Count 208 Neut % (Auto) 64.9 Lymph % (Auto) 23.6 L [place] % (Auto) 8.2 Eos % (Auto) 3.0 Baso % (Auto) 0.3 Neut # (Auto) 6300 Lymph # (Auto) 2300 [place] # (Auto) 800 Eos # (Auto) 300 Baso # (Auto) 0 Sodium 132 L Potassium 4.2 Chloride 97 L Carbon Dioxide 28 BUN 11 Creatinine 0.68 Estimated GFR > 60.0 BUN/Creatinine Ratio 16.2 Glucose 189 H Calcium 9.3 Magnesium 1.6 Total Bilirubin 0.4 AST 31 ALT 35 Alkaline Phosphatase 90 Total Protein 6.9 Albumin 3.8 Globulin 3.1 Albumin/Globulin Ratio 1.2 PFSH Medical History Anxiety Cellulitis Chronic back pain Degenerative arthritis Degenerative disorder of bone Depression Diabetes Gout Psoriatic arthritis Rheumatoid arthritis Surgical History History of knee surgery History of surgery on wrist Social History household members: significant other Smoking Status: Former smoker alcohol intake: former Assessment & Plan Assessment & Plan narrative: 1. RLE cellulitis, with abscess without necrotizing fascitis ?- vanc, and clinda for infection while pending final results of cultures ?- area demarcated, continue to follow, stable today. ?- I+D done on 06/19 -repeat CT on 07/21 shows no new consolidation -blood cultures show staph, wound culture shows 1+ GPC 2. Diabetes, type 2 ?- A1c 8.9%, glucose >400 on admission. On metformin at home will hold ?- started lantus 10 units tonight, continue to adjust, provide sliding scale. Glucose 181 this AM will continue current dosing for now. ?- patient reports he was previously a borderline diabetic on metformin. - dietary consultation. Consider discharge on insulin vs combination oral therapy with metformin plus another oral agent on discharge. 3. Gout, chronic ?- continue home medications. 4. psoriatic, osteo, and rheumatoid arthritis, chronic ?- pain medication as noted above 5. chronic low back pain ?- will be on pain therapy as noted above. 6. Obesity, BMI 42.7, present on admission. ?- contributes towards infection risk and increases risk of complication should surgical management be needed. Time Spent With Patient Critical Care time: I spent a total of [] minutes of critical care time on this patient's care today; this time is exclusive of procedural time. Quality VTE Deep Vein Thrombosis/Pulmonary Embolism Present on Admission: No
[2021-07-21] MEDS: INSULIN GLARGINE 100 UNIT/ML 3ML PEN 10 UNIT SUBCUT (21:27)
[2021-07-22] VITALS (10 sets, daily range): BP systolic 103–144; BP diastolic 50–88; PULSE 76–105; RESP 16–18; TEMP 36.3–37.2; O2SAT 94–97
[2021-07-22] MEDS: HYDROMORPHONE 1 MG INJ 0.75 MG IV ×5 (00:43→20:52)
[2021-07-22] MEDS: SODIUM CHLORIDE 0.9% FLUSH 10 ML IV ×4 (00:44→21:18)
--- NOTE | 2021-07-22 02:22 | PC.NURSE ---
Patient is alert and oriented. Breath sounds CTA with RA sat of 95%. HRR. Denies nausea. BT present and abdomen is soft. Denies dysuria, frequency or urgency with urination; using urinal at bedside. Is able to turn himself in bed. Due to right thigh pain states he is getting out of bed using walker and SBA. Dressing to right inner thigh is CDI; surrounding skin is erythemic and firm to touch. Medicated with IV Dilaudid at 0043 even though pain severity was 8/10 as patient insisted he receive Dilaudid rather than po oxycodone. Fall risk score is high and bed alarm is activated. Remains on contact isolation as final wound culture is still pending and gram stain had gm + cocci.
[2021-07-22] MEDS: CLINDAMYCIN 600 MG/50 ML PIGGYBACK 50 MG IV ×3 (05:02→20:51)
[2021-07-22] MEDS: INSULIN LISPRO 100 UNIT/ML 3ML VIAL SUBCUT ×4 (08:29→21:17)
[2021-07-22] MEDS: DULOXETINE 30 MG CAPSULE 60 MG PO (08:31)
[2021-07-22] MEDS: lisinopriL 20 MG TABLET PO (08:31)
[2021-07-22] MEDS: ENOXAPARIN 40 MG/0.4 ML SYRINGE SUBCUT ×2 (08:31→20:52)
[2021-07-22] MEDS: COLCHICINE 0.6 MG TABLET PO (08:31)
[2021-07-22] MEDS: allopurinoL 300 MG TABLET PO ×3 (08:31→20:52)
[2021-07-22] MEDS: OXYCODONE IR 10 MG TABLET PO ×4 (08:41→21:41)
[2021-07-22] MEDS: VANCOMYCIN 2,000 MG/400 ML PIGGYBACK 200 MG IV ×2 (09:35→22:07)
--- NOTE | 2021-07-22 14:20 | PM.PN.1 ---
Subjective Subjective Date Patient Seen: 07/22/21 Time Patient Seen: 08:00 Interval history: Today still says he has groin pain. He think it is improved from yesterday. Exam Vital Signs (past 8 hours): - 07/22/21 08:00 07/22/21 09:36 07/22/21 12:00 Temperature 97.4 F L 99.0 F Pulse Rate 95 H 87 Respiratory Rate 16 16 Blood Pressure 144/85 H 103/64 Pulse Oximetry 96 97 95 07/22/21 13:39 Temperature Pulse Rate Respiratory Rate Blood Pressure Pulse Oximetry 96 Oxygen Delivery Method Room Air Oxygen Flow Rate 0 Narrative Exam Narrative: ENERAL APPEARANCE: no acute distress HEART: regular rate and rhythm, no murmurs LUNGS: clear to auscultation bilaterally, no coarseness crackles or wheezing ABDOMEN: soft, nontender, nondistended EXTREMITIES:? moves all extremities, strength is 5/5 and symmetrical, no clubbing or cyanosis. SKIN: mild erythema surrounding I+D site, drain in place Objective Labs Result Diagrams: 07/21/21 04:50 07/21/21 04:50 PFS Medical History Anxiety Cellulitis Chronic back pain Degenerative arthritis Degenerative disorder of bone Depression Diabetes Gout Psoriatic arthritis Rheumatoid arthritis Surgical History History of knee surgery History of surgery on wrist Social History household members: significant other Smoking Status: Former smoker alcohol intake: former Assessment & Plan Assessment & Plan narrative: 1. RLE cellulitis, with abscess without necrotizing fascitis ?- vanc, and clinda for infection while pending final results of cultures ?- area demarcated, continue to follow, stable today. ?- I+D done on 06/19 -repeat CT on 07/21 shows no new consolidation -blood cultures show staph epi 1/4 bottles, unclear if contamintant, wound culture shows GPCs not further speciated, discussed with micro that they are growing bacteria but is not identifiable currently 2. Diabetes, type 2 ?- A1c 8.9%, glucose >400 on admission. On metformin at home will hold ?- started lantus 10 units tonight, continue to adjust, provide sliding scale. Glucose 181 this AM will continue current dosing for now. ?- patient reports he was previously a borderline diabetic on metformin. - dietary consultation. Consider discharge on insulin vs combination oral therapy with metformin plus another oral agent on discharge. 3. Gout, chronic ?- continue home medications. 4. psoriatic, osteo, and rheumatoid arthritis, chronic ?- pain medication as noted above 5. chronic low back pain ?- will be on pain therapy as noted above. 6. Obesity, BMI 42.7, present on admission. ?- contributes towards infection risk and increases risk of complication should surgical management be needed. Time Spent With Patient Critical Care time: I spent a total of [] minutes of critical care time on this patient's care today; this time is exclusive of procedural time. Quality VTE Deep Vein Thrombosis/Pulmonary Embolism Present on Admission: No
--- NOTE | 2021-07-22 15:21 | PC.NURSE ---
Patient A/O x3, DSG changed at 1000 today, patient requested to be pre-medicated with Dilaudid. Administered. Patient tolerated dsg change. VSS, lungs CTA, patient 96-98% on RA, denies SOB, chest pain, dizziness or lightheadedness. Voiding using the urinal. Patients R AC IV , R hand IV started by ICU nurse, patient tolerated. Patient reports pain 8/10, and requests IV Dilaudid, but when it is time for the medication he is able to rest with eyes closed, breathing unlabored, appears to be sleeping. Encouraged patient to try PO oxy to help manage pain for longer periods of time, patient receptive. Call light in reach. Report given to on coming nurse.
--- NOTE | 2021-07-22 19:56 | PC.NURSE ---
Addendum entered by Madelyn Koenig R.N. 07/22/21 21:40: 2115: Report given to Areli, who is assuming care of pt. Original Note: SHIFT: Report received, care assumed 1530. Pt A&Ox4. C/o both chronic (joints, r/t gout) and acute pain 7.5. Asking for both IVP and PO pain meds frequently, reporting pain only decreases to 7. Dressing of right groin/thigh visualized, some serosanguinous drainage, dressing intact. Perc drain tubing palpated under dressing. Anterior thigh is pink, swollen and firm, tender. Pt is saline locked, independent in room.
[2021-07-22] MEDS: INSULIN GLARGINE 100 UNIT/ML 3ML PEN 10 UNIT SUBCUT (21:17)
[2021-07-22 22:05] LABS: Vancomycin Trough 6.5 ug/mL (10-20)
[2021-07-23] VITALS (11 sets, daily range): BP systolic 124–146; BP diastolic 72–91; PULSE 71–95; RESP 14–19; TEMP 35.7–37.4; O2SAT 95–99
[2021-07-23] MEDS: OXYCODONE IR 10 MG TABLET PO ×6 (00:33→20:42)
[2021-07-23] MEDS: CLINDAMYCIN 600 MG/50 ML PIGGYBACK 50 MG IV ×3 (04:10→20:43)
[2021-07-23] MEDS: HYDROMORPHONE 1 MG INJ 0.75 MG IV (04:11)
[2021-07-23 05:09] LABS: BUN Creatinine Ratio 20.9 (6-22); Blood Urea Nitrogen 14 mg/dL (9-20); Carbon Dioxide 28 mmol/L (22-32); Chloride 99 mmol/L (98-107); Estimated Glomerular Filt Rate > 60.0 mL/min (>60); Glucose 168 mg/dL (70-100); HEMOLYSIS < 15 (0-50); Potassium 4.1 mmol/L (3.4-5.1); Sodium 135 mmol/L (137-145)
[2021-07-23 05:45] LABS: Hematocrit 37.3 % (41-53); Hemoglobin 12.2 g/dL (13.5-17.5); Mean Corpuscular HGB Conc 32.8 % (30-36); Mean Corpuscular Hemoglobin 27.5 PG (26-34); Mean Corpuscular Volume 83.9 fL (80-100); Platelet Count 278 X10^3/uL (150-400); Red Blood Cell Count 4.44 X10^6/uL (4.5-5.9); Red Cell Distribution Width 13.5 % (11.6-14.8)
[2021-07-23] MEDS: INSULIN LISPRO 100 UNIT/ML 3ML VIAL SUBCUT ×3 (09:26→17:54)
[2021-07-23] MEDS: ENOXAPARIN 40 MG/0.4 ML SYRINGE SUBCUT ×2 (09:26→20:43)
[2021-07-23] MEDS: lisinopriL 20 MG TABLET PO (09:27)
[2021-07-23] MEDS: COLCHICINE 0.6 MG TABLET PO (09:27)
[2021-07-23] MEDS: allopurinoL 300 MG TABLET PO ×3 (09:27→20:42)
[2021-07-23] MEDS: DULOXETINE 30 MG CAPSULE 60 MG PO (09:27)
[2021-07-23] MEDS: SODIUM CHLORIDE 0.9% FLUSH 10 ML IV (09:28)
[2021-07-23] MEDS: LINEZOLID 600 MG/300 ML IV.SOLN 300 MG IV ×2 (11:18→21:41)
[2021-07-23] MEDS: levoFLOXacin 750 MG/150 ML PIGGYBACK 100 MG IV (12:32)
--- NOTE | 2021-07-23 16:26 | P.PN_ITS ---
Subjective Subjective Date Patient Seen: 07/23/21 Time Patient Seen: 08:00 Interval history: He feels improved now. The swelling and redness in his leg has decreased. His pain is mild Exam Vital Signs (past 8 hours): - 07/23/21 11:00 07/23/21 12:35 07/23/21 16:00 Temperature 97.5 F L 98.9 F Pulse Rate 78 80 Respiratory Rate 16 19 Blood Pressure 145/89 H 135/83 Pulse Oximetry 96 96 97 Oxygen Delivery Method Room Air Oxygen Flow Rate 0 Narrative Exam Narrative: GENERAL APPEARANCE: no acute distress HEART: regular rate and rhythm, no murmurs LUNGS: clear to auscultation bilaterally, no coarseness crackles or wheezing ABDOMEN: soft, nontender, nondistended EXTREMITIES:? moves all extremities, strength is 5/5 and symmetrical, no clubbing or cyanosis. SKIN:erythema improved, drain in place Objective Labs Result Diagrams: 07/23/21 05:11 07/23/21 04:40 Labs: Laboratory Results - last 24 hr 07/22/21 07/23/21 07/23/21 21:28 00:00 04:40 WBC RBC Hgb Hct MCV MCH MCHC RDW Plt Count Sodium 135 L Potassium 4.1 Chloride 99 Carbon Dioxide 28 BUN 14 Creatinine 0.67 Estimated GFR > 60.0 BUN/Creatinine Ratio 20.9 Glucose 168 H Calcium 9.0 Vancomycin Peak 18.0 L Vancomycin Trough 6.5 L 07/23/21 05:11 WBC 10.0 RBC 4.44 L Hgb 12.2 L Hct 37.3 L MCV 83.9 MCH 27.5 MCHC 32.8 RDW 13.5 Plt Count 278 Sodium Potassium Chloride Carbon Dioxide BUN Creatinine Estimated GFR BUN/Creatinine Ratio Glucose Calcium Vancomycin Peak Vancomycin Trough [facility] Medical History Anxiety Cellulitis Chronic back pain Degenerative arthritis Degenerative disorder of bone Depression Diabetes Gout Psoriatic arthritis Rheumatoid arthritis Surgical History History of knee surgery History of surgery on wrist Social History household members: significant other Smoking Status: Former smoker alcohol intake: former Assessment & Plan Assessment & Plan narrative: 1. RLE cellulitis, with abscess without necrotizing fascitis ?- vanc, and clinda for infection while pending final results of cultures ?- area demarcated, continue to follow, stable today. ?- I+D done on 06/19 -repeat CT on 07/21 shows no new consolidation -blood cultures show staph epi 1/ bottles, unclear if contamintant, wound culture shows GPCs not further speciated, discussed with micro that appears to be growing GPCs and GNCs which are not further speciated 2. Diabetes, type 2 ?- A1c 8.9%, glucose >400 on admission. On metformin at home will hold ?- started lantus 10 units tonight, continue to adjust, provide sliding scale. Glucose 181 this AM will continue current dosing for now. ?- patient reports he was previously a borderline diabetic on metformin. - dietary consultation. Consider discharge on insulin vs combination oral therapy with metformin plus another oral agent on discharge. 3. Gout, chronic ?- continue home medications. 4. psoriatic, osteo, and rheumatoid arthritis, chronic ?- pain medication as noted above 5. chronic low back pain ?- will be on pain therapy as noted above. 6. Obesity, BMI 42.7, present on admission. ?- contributes towards infection risk and increases risk of complication should surgical management be needed. Time Spent With Patient Critical Care time: I spent a total of [] minutes of critical care time on this patient's care today; this time is exclusive of procedural time. Quality VTE Deep Vein Thrombosis/Pulmonary Embolism Present on Admission: No
[2021-07-23] MEDS: INSULIN GLARGINE 100 UNIT/ML 3ML PEN 10 UNIT SUBCUT (21:42)
[2021-07-24] MEDS: OXYCODONE IR 10 MG TABLET PO ×2 (00:48→09:02)
[2021-07-24 01:00] VITALS: O2SAT 99
[2021-07-24 04:00] VITALS: BP 122/76; PULSE 71; RESP 16; TEMP 36.2; O2SAT 96
[2021-07-24] MEDS: CLINDAMYCIN 600 MG/50 ML PIGGYBACK 50 MG IV (04:49)
[2021-07-24] MEDS: SODIUM CHLORIDE 0.9% 250 ML 21 ML IV (04:50)
[2021-07-24 05:00] VITALS: O2SAT 96
[2021-07-24 08:00] VITALS: BP 122/74; PULSE 70; RESP 16; TEMP 36.3; O2SAT 96
[2021-07-24] MEDS: COLCHICINE 0.6 MG TABLET PO (08:56)
[2021-07-24] MEDS: allopurinoL 300 MG TABLET PO (08:56)
[2021-07-24] MEDS: INSULIN LISPRO 100 UNIT/ML 3ML VIAL SUBCUT (08:56)
[2021-07-24] MEDS: SODIUM CHLORIDE 0.9% FLUSH 10 ML IV (08:57)
[2021-07-24] MEDS: lisinopriL 20 MG TABLET PO (08:57)
[2021-07-24] MEDS: DULOXETINE 30 MG CAPSULE 60 MG PO (08:57)
[2021-07-24] MEDS: ENOXAPARIN 40 MG/0.4 ML SYRINGE SUBCUT (08:57)
[2021-07-24 09:00] VITALS: O2SAT 90
--- NOTE | 2021-07-24 09:59 | PM.PN.1 ---
Subjective Subjective Date Patient Seen: 07/24/21 Time Patient Seen: 09:59 Exam Vital Signs (past 8 hours): - 07/24/21 04:00 07/24/21 05:00 07/24/21 08:00 Temperature 97.1 F L 97.3 F L Pulse Rate 71 70 Respiratory Rate 16 16 Blood Pressure 122/76 122/74 Pulse Oximetry 96 96 96 07/24/21 09:00 Temperature Pulse Rate Respiratory Rate Blood Pressure Pulse Oximetry 90 L Oxygen Delivery Method Nasal Cannula Oxygen Flow Rate 1 Narrative Exam Narrative: right upper thigh much softer with decreased redness. Objective Labs Result Diagrams: 07/23/21 05:11 07/23/21 04:40 [facility] Medical History Anxiety Cellulitis Chronic back pain Degenerative arthritis Degenerative disorder of bone Depression Diabetes Gout Psoriatic arthritis Rheumatoid arthritis Surgical History History of knee surgery History of surgery on wrist Social History household members: significant other Smoking Status: Former smoker alcohol intake: former Assessment & Plan Assessment & Plan narrative: Right upper thigh abscess with +blood culture of stap aureus that could be contaminant. Awaiting final cultures on leg. Plan: remove love drain today. Surgery to sign off. NO need for surgical follow up can follow with PCP Time Spent With Patient Critical Care time: I spent a total of [] minutes of critical care time on this patient's care today; this time is exclusive of procedural time. Quality VTE Deep Vein Thrombosis/Pulmonary Embolism Present on Admission: No
--- NOTE | 2021-07-24 10:08 | PC.NURSE ---
Addendum entered by Valeria Mcduffie R.N. 07/24/21 11:23: Patient given discharge information regarding f/u appointment, wound care, Rx for antibiotic and s/s of worsening condition. Patient verbalized understanding. IV removed, patient tolerated. Patient requests pain medication, unable to have any until 1200, patient plans to drive himself home so I offered tylenol, patient declined. Dressing changed, patient given extra dressings and tape for future wound care. Patient discharged via wheelchair. Original Note: [place] drains x [address] Arroyo. Patient tolerated. Wound erythema has decreased since yesterday, swelling has decreased. Covered with ABD pad and tape.
[2021-07-24] MEDS: LINEZOLID 600 MG/300 ML IV.SOLN 300 MG IV (10:13)
--- NOTE | 2021-07-24 11:28 | CM.DPC ---
DCP Discharge Home PO meds Per MD, cultures returned and pt medically stable to d/c home on oral abx for 5 days and no identified barriers to discharge. Per RN, pt getting d/c instructions and ready for transport home via [facility] Other soon and no concerns at this time. Plan: Patient to d/c home via [facility] Other POV and po abx and no further SW needs at this time. BONNIE Burdick
--- NOTE | 2021-07-24 14:15 | PM.DS.1 ---
History of Present Illness History of Present Illness Chief complaint: Sweating, Freezing, Thing on Inner Rt Thigh Narrative: Per Dr. Jacob Mr. Chu Hernández is a 40-year-old male patient with past medical history significant for psoriatic arthritis, rheumatoid arthritis and osteoarthritis, gout, chronic back pain and [place]om[place] cyst who presented to the Emergency were room with worsening swelling in his right upper thigh. He also has a prior PE but has been off of Eliquis for 3 weeks now. States 2 days ago he noticed a small pimple which he popped and drained a small amount of serosanguineous fluid, he woke up yesterday and headed expanded and was quite painful and continued to expand quite quickly today so he sought help in the emergency room. He was also feeling sweaty and vaguely fatigued. He endorses subjective fever but never measured his temperature. He denies any shortness of breath, chest pain. In the emergency room, the patient's vital signs is unremarkable. Initial laboratory evaluation showed a mild leukocytosis with WBC 11.7, chemistries were notable for a glucose of 423, but the remainder of his labs were not concerning. There was no anion gap. Procalcitonin was 0.14. COVID-[address] of his right groin showed cellulitis with a small foci of fluid collection but no discrete abscess. Patient was admitted to Medicine for further management and antibiotic therapy. Discharge Providers Provider Date of admission: 07/18/21 16:26 Discharge Date: 07/24/21 Primary care physician: Sammie Colbert PA-C Consults: 07/18/21 18:16 Consult to General Surgery Routine Comment: Consulting Provider: Kelli Arroyo Reason for consultation: R groin cellulitis, poss. abscess 07/19/21 11:59 Consult to Dietitian, Adult Routine Comment: Reason For Exam: New Diabetic teaching Discharge provider: Ramsey Daley MD Summary Hospital Course Discharge Diagnosis: 1. Right leg celluitis with abscess 2. Type 2 Diabetes 3. Gout 4. Chronic low back pain 5. Morbid obesity Hospital Course: Mr. Hernández was admitted with groin pain, and upper right leg swelling. He was found to have an abscess and I+D was done on 06/19. He grew 1/4 blood cultures with staph epi, possible contaminant. Repeat cultures negative. He grew gram positive cocci in his wound. He initially had difficult to get vancomycin levels to target given his weight. He had slow improvement in his symptoms. He was then switched to linezolid and improved quickly. He will be discharged with linezolid to complete a 10 day course of antibiotics. Exam Vital Signs (past 8 hours): Oxygen Delivery Method Nasal Cannula Oxygen Flow Rate 1 Narrative Exam Narrative: GENERAL APPEARANCE: no acute distress HEART: regular rate and rhythm, no murmurs LUNGS: clear to auscultation bilaterally, no coarseness crackles or wheezing ABDOMEN: soft, nontender, nondistended EXTREMITIES: moves all extremities, strength is 5/5 and symmetrical, no clubbing or cyanosis. SKIN:erythema improved, drain in place Objective Labs Result Diagrams: 07/23/21 05:11 07/23/21 04:40 [facility] Medical History Anxiety Cellulitis Chronic back pain Degenerative arthritis Degenerative disorder of bone Depression Diabetes Gout Psoriatic arthritis Rheumatoid arthritis Surgical History History of knee surgery History of surgery on wrist Social History household members: significant other Smoking Status: Former smoker alcohol intake: former Discharge Plan Discharge Plan Patient Disposition: Home Provider Discharge Comment: Mr. Hernández came in with skin infection and abscess. He had the abscess drained. He was given IV antibiotics and felt better. He will be discharged with 5 more days of antibiotics. Discharge orders & Medications Prescriptions: New linezolid 600 mg tablet 600 mg PO BID Qty: 10 RF: 0 Continued allopurinol 300 mg tablet 300 mg TID RF: 0 colchicine 0.6 mg tablet 0.6 mg PO DAILY RF: 0 metformin 500 mg Tablet 500 mg PO BID RF: 0 hydrocodone-acetaminophen 10-325 mg tablet 1 tab PO Q6HR RF: 0 sildenafil [Viagra] 100 mg Tablet See Rx Instructions .ROUTE .COMPLEX PRN (Reason: Erectile Dysfunction) RF: 0 duloxetine 60 mg capsule,delayed release(DR/EC) 60 mg PO DAILY RF: 0 lisinopril 20 mg tablet 20 mg PO DAILY RF: 0 Follow up/Referrals: Colbert,Sammie, PA-C [Primary Care Provider] - Discharge Data Primary Care Provider: Sammie Colbert VTE Deep Vein Thrombosis/Pulmonary Embolism Present on Admission: No
== END 2021-07-24 11:35 | disposition home or self-care (01) | DRG 603 ==
LOC: ED 14:37 → AC 16:27
PROVIDERS: Internal Medicine; Surgery; Admitting Provider Internal Medicine; Emergency Provider Emergency Medicine; PCP Student in an Organized Health Care Education/Training Program; Referring Provider Emergency Medicine; Visit Provider Internal Medicine
PROC: 0J9L0ZX Drainage of Right Upper Leg Subcutaneous Tissue and Fascia, Open Approach, Diagnostic (ICD-10-PCS; principal; 2021-07-19 17:15)
DX: L03.314 Cellulitis of groin (principal); Z68.41 Body mass index [BMI] 40.0-44.9, adult; L02.214 Cutaneous abscess of groin; E66.9 Obesity, unspecified; M06.9 Rheumatoid arthritis, unspecified; L40.50 Arthropathic psoriasis, unspecified; E11.65 Type 2 diabetes mellitus with hyperglycemia; G89.29 Other chronic pain; M54.50 Low back pain, unspecified; M1A.9XX0 Chronic gout, unspecified, without tophus (tophi); Z87.891 Personal history of nicotine dependence; Z20.822 Contact with and (suspected) exposure to COVID-19; Z79.84 Long term (current) use of oral hypoglycemic drugs
CPT/HCPCS: 10140; 36415; 73701; 80048; 80053; 80202; 82962; 83036; 83605; 83735; 84145; 85025; 85027; 85651; 86140; 87040; 87070; 87075; 87076; 87150; 87186; 87205; 87635; 94760; 96365; 96366; 96375; 99232; 99284; C9803; C8929; J1170; J1650; J1815; J1956; J2020; J2185; J2405; J2704; J3010; Q9957; Q9967

== ENCOUNTER 2023-03-09 13:02 | Emergency (ER) | payer MEDICARE, MEDICAID, SELFPAY ==
[2021-07-18 16:55] VITALS: BMI 39.9
[2023-03-09] VITALS (9 sets, daily range): BP systolic 115–142; BP diastolic 61–81; PULSE 75–101; RESP 18; TEMP 37.3; O2SAT 93–97; BMI 37.6
--- NOTE | 2023-03-09 14:22 | DI.CT.S_ITS ---
PROCEDURE: CT KIDNEY URETER BLADDER (KUB) INDICATIONS: flank pain, hematuria TECHNIQUE: Axial sections were acquired from the lung bases to the pubic symphysis. Coronal and sagittal reformats were performed. For radiation dose reduction, the following was used: automated exposure control, adjustment of mA and/or kV according to patient size. COMPARISON: None. FINDINGS: Image quality: Excellent. Lung bases: Unremarkable. Heart: No significant findings. URINARY: Right Kidney: No stones or hydronephrosis. Right Ureter: No hydroureter. Left Kidney: Punctate nonobstructing left-sided stone. No hydronephrosis. Left Ureter: No hydroureter. Bladder: Normal wall thickness. No stones. ABDOMEN: Liver: Unremarkable. Gallbladder: Gallbladder sludge versus small stones. No wall thickening. Biliary ducts: Unremarkable. Pancreas: Unremarkable. Spleen: Unremarkable. Adrenal Glands: Unremarkable. Stomach and Bowel: Stomach, small bowel loops, and colon are unremarkable. Peritoneum: No abnormal intraperitoneal fluid. No free air. Ventral Wall: No hernia. Abdominal Nodes: No enlarged retroperitoneal or mesenteric lymph nodes. Vessels: Aorta and inferior vena cava are normal in size. PELVIS: Pelvic Organs: Unremarkable. Pelvic Nodes: Unremarkable. Miscellaneous: No inguinal hernias are seen. Bones: Achillis of the sacroiliac joints. Spinal stimulator present. IMPRESSION: Punctate nonobstructing left-sided stone. No hydronephrosis. No right-sided nephrolithiasis. Appendix is unremarkable. Dictated by: John Galrand M.D. on 03/09/2023 at 14:50 Approved by: John Garland M.D. on 03/09/2023 at 14:52
[2023-03-09 14:30] LABS: Bacteria Urine None Seen; RBC Urine 0-1/HPF (0-5/HPF); WBC Urine 1-5/HPF (0-5/HPF)
[2023-03-09 14:31] LABS: Culture Indicated Urine Cult Not Indicated; Squamous Epithelial Cell Urine 0-1 /HPF (0-5/HPF)
--- NOTE | 2023-03-09 14:40 | ED_ITS ---
HPI - Male Genitourinary General Chief complaint: Urogenital-Male Stated complaint: Blood in urine/poss kidney stone Time Seen by Provider: 03/09/23 13:38 Source: patient Mode of arrival: Ambulatory History of Present Illness HPI Narrative: 42-year-old male former smoker with history of prior kidney stones and gout presents from an urgent care at an outside facility in the chief complaint of right flank pain. He states it started a few days ago suddenly and though it has a few occasional episodes where it gets worse without obvious provocation in his largely steady and in the same spot. He denies any radiation of the pain. He is had nausea but denies any vomiting. He is had subjective fever and chills. He went to an outside facility and was found to have blood in his urine and was sent here for evaluation of kidney stone. He denies any trauma or injury Related Data Home Medications Medication Instructions Recorded Confirmed allopurinol 300 mg tablet 300 mg TID 12/07/20 07/18/21 colchicine 0.6 mg tablet 0.6 mg PO DAILY 12/07/20 07/18/21 hydrocodone 10 mg-acetaminophen 1 tab PO Q6HR 12/07/20 07/18/21 325 mg tablet metformin 500 mg tablet 500 mg PO BID 12/07/20 07/18/21 sildenafil 100 mg tablet (Viagra) See Rx Instructions .Route 12/07/20 07/18/21 .COMPLEX PRN Erectile Dysfunction lisinopril 20 mg tablet 20 mg PO DAILY 01/27/21 07/18/21 duloxetine 60 mg capsule,delayed 60 mg PO DAILY 07/18/21 07/18/21 release Previous Rx's Medication Instructions Recorded linezolid 600 mg tablet 600 mg PO BID #10 tabs 07/24/21 hydrocodone 5 mg-acetaminophen 325 1 tab PO Q4-6H PRN pain #20 tabs 03/09/23 mg tablet ondansetron 4 mg disintegrating 4 mg PO TID-QID PRN nausea and 03/09/23 tablet vomiting #10 tabs Allergies Allergy/AdvReac Type Severity Reaction Status Date / Time pegloticase [From Krystexxa] Allergy Severe Anaphylaxis Verified 03/09/23 13:22 cephalexin [From Keflex] Allergy Verified 03/09/23 13:22 codeine Allergy Verified 03/09/23 13:22 [From Tylenol-Codeine #3] Review of Systems Review of Systems Narrative: GENERAL: Denies chills, fatigue, malaise, fever, sweats. HEENT: Denies sinus pain, ear pain, sore throat, difficulty swallowing, dizziness. RESPIRATORY: Denies dyspnea, cough, wheezing, hemoptysis, sputum. CARDIOVASCULAR: Denies chest pain, palpitations, orthopnea, edema, GASTROINTESTINAL: Denies nausea, vomiting, abdominal pain, diarrhea, constipation, melena. : See HPI MUSCULOSKELETAL: denies weakness, joint pain, or bony pain SKIN: Denies rash, skin lesions, or other NEUROLOGIC: Denies weakness, headache, numbness, change in speech, confusion, seizures, incoordination. PSYCHIATRIC: No concerning psychosocial issues. 12 point review of systems is negative except for those stated above Patient History Medical History Anxiety Cellulitis Chronic back pain Degenerative arthritis Degenerative disorder of bone Depression Diabetes Gout Psoriatic arthritis Rheumatoid arthritis Surgical History History of knee surgery History of surgery on wrist Social History household members: significant other Smoking Status: Former smoker alcohol intake: former Smoking Status: Former smoker alcohol intake frequency: 0-2 drinks per day Substance Use Type: marijuana Exam Narrative Exam Narrative: GENERAL: [42] year old patient appears stated age. Well-developed patient, in mild distress. HEAD: Atraumatic. Normocephalic. EYES: Pupils equal round and reactive. Extraocular motions intact. No scleral icterus. No injection or drainage. ENT: Nose without bleeding, purulent drainage. Throat without erythema, tonsillar hypertrophy or exudate. Airway patent. NECK: Trachea midline. Non tender CARDIOVASCULAR: Regular rate and rhythm without murmurs, gallops, or rubs. RESPIRATORY: Clear to auscultation. Breath sounds equal bilaterally. No wheezes, rales, or rhonchi. GASTROINTESTINAL: Abdomen soft, non-tender, nondistended. EXTREMITIES: No edema or joint tenderness. BACK: Right CVA tenderness NEURO: AOx3. SKIN: No rash or erythema of visible areas Initial Vital Signs Initial Vital Signs: Vital Signs Temperature 99.1 F 03/09/23 13:17 Pulse Rate 101 H 03/09/23 13:17 Respiratory Rate 18 03/09/23 13:17 Blood Pressure 142/81 H 03/09/23 13:17 Pulse Oximetry 97 03/09/23 13:17 Oxygen Delivery Method Room Air 03/09/23 13:17 Course Orders Ordered: Discontinued Medications Hydromorphone HCl (Hydromorphone 1 Mg Inj) 1 mg IV NOW ONE Stop: 03/09/23 14:48 Last Admin: 03/09/23 14:52 Dose: 1 mg Documented By: SHONDA Hydromorphone HCl (Hydromorphone 1 Mg Inj) 1 mg IV NOW ONE Stop: 03/09/23 17:02 Last Admin: 03/09/23 17:21 Dose: 1 mg Documented By: SHONDA Sodium Chloride (Normal Saline 0.9%) 1,000 mls @ 1,000 mls/hr IV BOLUS ONE Stop: 03/09/23 15:21 Last Infusion: 03/09/23 16:25 Dose: 0 mls/hr Documented By: Admin: 03/09/23 14:47 Dose: 1,000 mls/hr Documented By: SHONDA Ondansetron HCl (Ondansetron 4 Mg/2 Ml Inj) 4 mg IV NOW ONE Stop: 03/09/23 14:48 Last Admin: 03/09/23 14:52 Dose: 4 mg Documented By: SHONDA Consultations Consultation #1: Discussed with on-call General surgery (Dmitry). We discussed the clinical course including labs and imaging as well as response to therapies. No indication for surgery at this time, recommends discharge, close follow-up, pain control, antiemetics and avoidance of fatty foods with typical return precautions. Vital Signs Vital signs: Vital Signs - 8 hr 03/09/23 13:17 03/09/23 14:36 03/09/23 14:37 Temperature 99.1 F Pulse Rate 101 H Respiratory Rate 18 Blood Pressure 142/81 H 117/70 Pulse Oximetry 97 97 Oxygen Delivery Method Room Air Room Air 03/09/23 14:37 03/09/23 15:00 03/09/23 15:00 Temperature Pulse Rate 92 H 90 Respiratory Rate Blood Pressure 115/67 Pulse Oximetry 96 95 Oxygen Delivery Method Room Air Room Air 03/09/23 15:30 03/09/23 15:30 03/09/23 16:00 Temperature Pulse Rate 80 Respiratory Rate Blood Pressure 117/66 122/70 Pulse Oximetry 93 Oxygen Delivery Method Room Air 03/09/23 16:00 Temperature Pulse Rate 80 Respiratory Rate Blood Pressure Pulse Oximetry 95 Oxygen Delivery Method Room Air MDM - Male Genitourinary Lab Data 03/09/23 13:30 03/09/23 13:30 Labs: Lab Results 03/09/23 03/09/23 03/09/23 Range/Units 13:30 13:30 13:30 WBC 14.6 H (4.5-11.0) X10^3/uL RBC 5.08 (4.5-5.9) X10^6/uL Hgb 13.8 (13.5-17.5) g/dL Hct 41.5 (41-53) % MCV 81.8 (80-100) fL MCH 27.2 (26-34) PG MCHC 33.3 (30-36) % RDW 14.2 (11.6-14.8) % Plt Count 237 (150-400) X10^3/uL Neut % (Auto) 75.8 H (50-75) % Lymph % (Auto) 14.7 L (25-40) % [place] % (Auto) 9.0 (3-14) % Eos % (Auto) 0.2 L (2-4) % Baso % (Auto) 0.3 (0-2) % Neut # (Auto) 84660 H (6941-7824) /uL Lymph # (Auto) 2100 (7158-2462) /uL [place] # (Auto) 1300 H (0-900) /uL Eos # (Auto) 0 (0-450) /uL Baso # (Auto) 0 (0-100) /uL Sodium 137 (137-145) mmol/L Potassium 3.9 (3.4-5.1) mmol/L Chloride 100 (98-107) mmol/L Carbon Dioxide 26 (22-32) mmol/L BUN 11 (9-20) mg/dL Creatinine 0.90 (0.66-1.25) mg/dL Estimated GFR > 60 (>60) mL/min BUN/Creatinine Ratio 12.2 (6-22) Glucose 119 H (70-100) mg/dL Calcium 9.5 (8.4-10.2) mg/dL Total Bilirubin (0.2-1.3) mg/dL AST (17-59) IU/L ALT (<50) IU/L Alkaline Phosphatase (38-126) U/L Lipase (23-300) U/L Urine RBC 0-1/hpf (0-5/HPF) Urine WBC 1-5/hpf (0-5/HPF) Ur Squamous Epith Cells 0-1 /hpf (0-5/HPF) Urine Bacteria None seen (None) Ur Culture Indicated? Cult not indicated 03/09/23 Range/Units 13:30 WBC (4.5-11.0) X10^3/uL RBC (4.5-5.9) X10^6/uL Hgb (13.5-17.5) g/dL Hct (41-53) % MCV (80-100) fL MCH (26-34) PG MCHC (30-36) % RDW (11.6-14.8) % Plt Count (150-400) X10^3/uL Neut % (Auto) (50-75) % Lymph % (Auto) (25-40) % [place] % (Auto) (3-14) % Eos % (Auto) (2-4) % Baso % (Auto) (0-2) % Neut # (Auto) (3192-8130) /uL Lymph # (Auto) (7931-1460) /uL [place] # (Auto) (0-900) /uL Eos # (Auto) (0-450) /uL Baso # (Auto) (0-100) /uL Sodium (137-145) mmol/L Potassium (3.4-5.1) mmol/L Chloride (98-107) mmol/L Carbon Dioxide (22-32) mmol/L BUN (9-20) mg/dL Creatinine (0.66-1.25) mg/dL Estimated GFR (>60) mL/min BUN/Creatinine Ratio (6-22) Glucose (70-100) mg/dL Calcium (8.4-10.2) mg/dL Total Bilirubin 1.3 (0.2-1.3) mg/dL AST 46 (17-59) IU/L ALT 22 (<50) IU/L Alkaline Phosphatase 69 (38-126) U/L Lipase 28 (23-300) U/L Urine RBC (0-5/HPF) Urine WBC (0-5/HPF) Ur Squamous Epith Cells (0-5/HPF) Urine Bacteria (None) Ur Culture Indicated? Urine Dip Bedside Urine Glucose Negative Bedside Urine Bilirubin - Negative Bedside Urine Ketone - Negative Urine Specific [place] 1.020 Bedside Urine Occult Blood +/- Bedside Urine pH 6.0 Bedside Urine Protein + 30 Bedside Urine Urobilinogen +/- 1mg Bedside Urine Nitrite - Negative Bedside Urine Leukocytes - Negative Esterase MDM Narrative Medical decision making narrative: [42] year old patient presents with right flank pain and hematuria Multiple etiologies for patient's symptoms considered including, but not limited to: [Kidney stone versus pyelonephritis versus other] Prior Charts reviewed in our EMR Primary Historian: patient Labs reviewed and interpreted by myself: Leukocytosis without true left shift, no signs of anemia, Imaging reviewed: CT KUB without significant findings, ultrasound notes gallbladder such with mild wall thickening and pericholecystic fluid Consultations: Discussed with surgery, see above for details Patient's symptoms improved over duration of stay with above-stated therapies. Pain is well controlled, tolerating orals, no signs of sepsis Findings and discharge diagnosis discussed with patient/family followed by verbalization of understanding Return precautions discussed with patient/family whom verbalize understanding of diagnosis and plan Discharge Plan Departure Patient Disposition: Home Clinical Impression: Biliary colic Instructions: DI for Biliary Colic Activity Restrictions/Additional Instructions: *You have been diagnosed with [abdominal pain] with subtle signs that your gallbladder may be the source but as we discussed there is no requirement for a specific intervention at this time given your reassuring labs *What to do: *Please continue to take your regular medications as directed. [x ] New medication prescriptions sent to your pharmacy: [[facility] ] *Please follow up with Dr. Andres at [facility], call tomorrow for an appointment. Let them know you were seen in the Emergency Department and that we ask that you be seen in follow up. We will electronically transmit a record of today's note. *Please consider a clear liquid diet for the next 24-48 hours and then slowly advance to regular as tolerated. Also, try to avoid alcohol, nicotine, caffeine, spicy, acidic or fatty foods as this may worsen your symptoms *Return to Emergency Department if you should have any new, worsening or concerning symptoms, such as [fever greater than 101 F, shaking chills, worsening pain, persistent vomiting or other bothersome symptoms] Prescriptions: New hydrocodone-acetaminophen 5-325 mg tablet 1 tab PO Q4-6H PRN (Reason: pain) Qty: 20 0RF ondansetron 4 mg tablet,disintegrating 4 mg PO TID-QID PRN (Reason: nausea and vomiting) Qty: 10 0RF No Action allopurinol 300 mg tablet 300 mg TID colchicine 0.6 mg tablet 0.6 mg PO DAILY metformin 500 mg Tablet 500 mg PO BID hydrocodone-acetaminophen 10-325 mg tablet 1 tab PO Q6HR sildenafil [Viagra] 100 mg Tablet See Rx Instructions .ROUTE .COMPLEX PRN (Reason: Erectile Dysfunction) Rx Instructions: 100 mg orally as needed duloxetine 60 mg capsule,delayed release(DR/EC) 60 mg PO DAILY linezolid 600 mg tablet 600 mg PO BID Qty: 10 0RF lisinopril 20 mg tablet 20 mg PO DAILY Referrals: Wili Andres MD [Physician] - Owen Shepherd PA-C [Primary Care Provider] - Stand Alone Forms: Patient Portal/API
[2023-03-09 14:42] LABS: Add Manual Diff / Slide Review NO; Basophils Absolute Auto 0 /uL (0-100); Basophils Percent Auto 0.3 % (0-2); Eosinophils Absolute Auto 0 /uL (0-450); Eosinophils Percent Auto 0.2 % (2-4); Hematocrit 41.5 % (41-53); Hemoglobin 13.8 g/dL (13.5-17.5); Lymphocytes Absolute Auto 2100 /uL (1100-4500); Lymphocytes Percent Auto 14.7 % (25-40); Mean Corpuscular HGB Conc 33.3 % (30-36); Mean Corpuscular Hemoglobin 27.2 PG (26-34); Mean Corpuscular Volume 81.8 fL (80-100); Monocytes Absolute Auto 1300 /uL (0-900); Neutrophils Absolute Auto 11100 /uL (1500-7000); Neutrophils Percent Auto 75.8 % (50-75); Platelet Count 237 X10^3/uL (150-400); Red Blood Cell Count 5.08 X10^6/uL (4.5-5.9); Red Cell Distribution Width 14.2 % (11.6-14.8); White Blood Cell Count 14.6 X10^3/uL (4.5-11.0)
[2023-03-09 14:46] LABS: BUN Creatinine Ratio 12.2 (6-22); Blood Urea Nitrogen 11 mg/dL (9-20); Calcium 9.5 mg/dL (8.4-10.2); Carbon Dioxide 26 mmol/L (22-32); Chloride 100 mmol/L (98-107); Estimated Glomerular Filt Rate > 60 mL/min (>60); Glucose 119 mg/dL (70-100); HEMOLYSIS 19 (0-50); Potassium 3.9 mmol/L (3.4-5.1); Sodium 137 mmol/L (137-145)
[2023-03-09] MEDS: SODIUM CHLORIDE 0.9% 1,000 ML 1000 ML IV (14:47)
[2023-03-09] MEDS: ONDANSETRON 4 MG/2 ML INJ IV (14:52)
[2023-03-09] MEDS: HYDROMORPHONE 1 MG INJ IV ×2 (14:52→17:21)
--- NOTE | 2023-03-09 15:04 | DI.US.S_ITS ---
PROCEDURE: US ABDOMEN LIMITED INDICATIONS: RUQ AND FLANK PAIN TECHNIQUE: Real-time scanning was performed of the abdominal and retroperitoneal organs, with image documentation. COMPARISON: None. FINDINGS: Liver: The liver is enlarged measuring 18.7 cm. Echogenicity is increased consistent with hepatic steatosis. Gallbladder: Sludge is present within the gallbladder. There is mild gallbladder wall thickening measuring 4.9 mm. No sonographic Valles's. A small amount of pericholecystic fluid is present adjacent to the gallbladder. Biliary ducts: Intrahepatic bile ducts are non-dilated. Extrahepatic bile duct caliber measures 5.3 mm. Normal is 6-7 mm or less in diameter, or 10 mm or less post-cholecystectomy. Pancreas: Obscured by bowel and not visualized. Kidney: The right kidney demonstrates no hydronephrosis, stones, cysts, or masses. IMPRESSION: 1. Gallbladder sludge with mild wall thickening and pericholecystic fluid. This finding is equivocal for cholecystitis. Please correlate clinically. 2. Hepatic steatosis Dictated by: Aj Caedt M.D. on 03/09/2023 at 16:38 Approved by: Aj Cadet M.D. on 03/09/2023 at 16:41
[2023-03-09 17:12] LABS: Alanine Aminotransferase 22 IU/L (<50); Alkaline Phosphatase 69 U/L (38-126); Aspartate Aminotransferase 46 IU/L (17-59); Bilirubin Total 1.3 mg/dL (0.2-1.3); Lipase 28 U/L (23-300)
== END 2023-03-09 17:56 | disposition home or self-care (01) ==
PROVIDERS: Emergency Provider Emergency Medicine; PCP Student in an Organized Health Care Education/Training Program
DX: K80.50 Calculus of bile duct without cholangitis or cholecystitis without obstruction (principal); Z79.899 Other long term (current) drug therapy
CPT/HCPCS: 36415; 74176; 76705; 80048; 81003; 81015; 82247; 83690; 84075; 84450; 84460; 85025; 96361; 96374; 96375; 96376; 99284; J1170; J2405

== ENCOUNTER 2023-03-11 16:02 | Emergency (ER) | payer MEDICARE, MEDICAID, SELFPAY ==
[2021-07-18 16:55] VITALS: BMI 39.9
[2023-03-11] VITALS (13 sets, daily range): BP systolic 133–142; BP diastolic 73–88; PULSE 63–85; RESP 16; TEMP 36.7; O2SAT 93–99; BMI 37.6
--- NOTE | 2023-03-11 16:20 | DI.US.S_ITS ---
PROCEDURE: US ABDOMEN LIMITED INDICATIONS: RUQ PAIN, RIGHT FLANK PAIN, RLQ PAIN, RECENT US W/ GB SLUDGE TECHNIQUE: Real-time scanning was performed of the abdominal and retroperitoneal organs, with image documentation. COMPARISON: [facility], CT, CT ABDOMEN PELVIS W CON, 03/11/2023, 16:32. [facility], US, US ABDOMEN LIMITED, 03/09/2023, 15:50. FINDINGS: Liver: Hepatic parenchyma shows diffuse increased echogenicity consistent with fatty infiltration. Gallbladder: Biliary sludge noted in the gallbladder. Gallbladder wall is slightly thickened at 3.5 mm. Small focus of hypoechoic focal fatty sparing noted adjacent to the gallbladder fossa Biliary ducts: Intrahepatic bile ducts are non-dilated. Extrahepatic bile duct caliber measures 5.8 mm. Normal is 6-7 mm or less in diameter, or 10 mm or less post-cholecystectomy. Kidneys: Right kidney unremarkable without hydronephrosis Miscellaneous: Right lower quadrant imaging fails to identify the appendix. IMPRESSION: Biliary sludge in the gallbladder. Hepatic fatty infiltration with probable focal fatty sparing adjacent to the gallbladder fossa. Nonvisualized appendix. Appendicitis not excluded. Approved by: Reymundo Pittman M.D. on 03/11/2023 at 17:14
--- NOTE | 2023-03-11 16:21 | ED_ITS ---
HPI - Back Pain/Injury <Ashlee Rees, [facility] - Last Filed: 03/11/23 18:29> General Chief Complaint: Back Pain/Injury Stated Complaint: Back pain, gallbladder issues, getting worse Time Seen by Provider: 03/11/23 16:06 History of Present Illness HPI Narrative: This is a 42-year-old gentleman who returns to emergency department after he was seen 2 days ago for right lower quadrant, right flank pain, and hematuria. He had a CT KUB without significant findings and ultrasound showing gallbladder sludge with mild wall thickening and pericholecystic fluid. Surgery was consulted and patient was to follow-up but this is the weekend and patient has been unable to be seen by surgery this far. Presents to the emergency department today for worsening right upper quadrant, right lower quadrant, and right flank pain. States he has not had a bowel movement, he is had chills without fever, endorses no appetite but no nausea vomiting either. Denies any penile pain, denies suprapubic tenderness or urinary changes. Denies any rectal pain. Patient denies any upper respiratory symptoms including cough, congestion or sore throat. Related Data Home Medications Medication Instructions Recorded Confirmed allopurinol 300 mg tablet 300 mg TID 12/07/20 07/18/21 colchicine 0.6 mg tablet 0.6 mg PO DAILY 12/07/20 07/18/21 hydrocodone 10 mg-acetaminophen 1 tab PO Q6HR 12/07/20 07/18/21 325 mg tablet metformin 500 mg tablet 500 mg PO BID 12/07/20 07/18/21 sildenafil 100 mg tablet (Viagra) See Rx Instructions .Route 12/07/20 07/18/21 .COMPLEX PRN Erectile Dysfunction lisinopril 20 mg tablet 20 mg PO DAILY 01/27/21 07/18/21 duloxetine 60 mg capsule,delayed 60 mg PO DAILY 07/18/21 07/18/21 release Previous Rx's Medication Instructions Recorded linezolid 600 mg tablet 600 mg PO BID #10 tabs 07/24/21 hydrocodone 5 mg-acetaminophen 325 1 tab PO Q4-6H PRN pain #20 tabs 03/09/23 mg tablet ondansetron 4 mg disintegrating 4 mg PO TID-QID PRN nausea and 03/09/23 tablet vomiting #10 tabs hydrocodone 5 mg-acetaminophen 325 1 tab PO BID PRN pain #10 tabs 03/11/23 mg tablet lactulose 10 gram/15 mL oral 10 g (15 mL) PO DAILY PRN 03/11/23 solution (Constulose) constipation #237 mL Allergies Allergy/AdvReac Type Severity Reaction Status Date / Time pegloticase [From Krystexxa] Allergy Severe Anaphylaxis Verified 03/09/23 13:22 cephalexin [From Keflex] Allergy Verified 03/09/23 13:22 codeine Allergy Verified 03/09/23 13:22 [From Tylenol-Codeine #3] Review of Systems <ANAYA Andrews - Last Filed: 03/11/23 18:29> Review of Systems ROS Unobtainable: All systems reviewed & are unremarkable except as noted in HPI and below Patient History <ANAYA Andrews - Last Filed: 03/11/23 18:29> Medical History Anxiety Cellulitis Chronic back pain Degenerative arthritis Degenerative disorder of bone Depression Diabetes Gout Psoriatic arthritis Rheumatoid arthritis Surgical History History of knee surgery History of surgery on wrist Social History household members: significant other Smoking Status: Former smoker alcohol intake: former Smoking Status: Former smoker alcohol intake frequency: 0-2 drinks per day Substance Use Type: marijuana Exam <ANAYA Andrews - Last Filed: 03/11/23 18:29> Narrative Exam Narrative: Reviewed vitals signs and nursing notes. General: Pleasant, resting upright in bed, in no acute distress, well groomed, afebrile, patient appears to be feeling poorly and appears tired HEENT: symmetrical facial expressions, moist mucous membranes, neck is supple CV: regular rate and rhythm, warm extremities Respiratory: normal work of breathing, without tachypnea or hypoxia. GI: abdomen soft, nondistended, positive Valles sign, right CVA tenderness to palpation, right inguinal tenderness and right lower quadrant tenderness to palpation, no masses, no other abdominal tenderness, bowel sounds are hypoactive MSK: moves all extremities, no weakness, normal tone, ambulatory without deficit Skin: brisk capillary refill, without rash or wound Neuro: clear speech and normal cognition, A&O x3, GCS 15, no focal motor or sensation deficits Initial Vital Signs Initial Vital Signs: Vital Signs Temperature 98.0 F 03/11/23 16:09 Pulse Rate 81 03/11/23 16:09 Respiratory Rate 16 03/11/23 16:09 Blood Pressure 141/85 H 03/11/23 16:09 Pulse Oximetry 99 03/11/23 16:09 Oxygen Delivery Method Room Air 03/11/23 16:09 <Chu Diez DO - Last Filed: 03/12/23 13:00> Initial Vital Signs Initial Vital Signs: Vital Signs Temperature 98.0 F 03/11/23 16:09 Pulse Rate 81 03/11/23 16:09 Respiratory Rate 16 03/11/23 16:09 Blood Pressure 141/85 H 03/11/23 16:09 Pulse Oximetry 99 03/11/23 16:09 Oxygen Delivery Method Room Air 03/11/23 16:09 Course <ANAYA Andrews - Last Filed: 03/11/23 18:29> Orders Ordered: Discontinued Medications Hydromorphone HCl (Hydromorphone 1 Mg Inj) 1 mg IV NOW ONE Stop: 03/11/23 16:49 Last Admin: 03/11/23 17:06 Dose: 1 mg Documented By: YESSICA Hydromorphone HCl (Hydromorphone 1 Mg Inj) 1 mg IV NOW ONE Stop: 03/11/23 18:13 Last Admin: 03/11/23 18:17 Dose: 1 mg Documented By: RB Sodium Chloride (Normal Saline 0.9%) 1,000 mls @ 1,000 mls/hr IV BOLUS ONE Stop: 03/11/23 17:18 Last Infusion: 03/11/23 18:08 Dose: 0 mls/hr Documented By: Admin: 03/11/23 16:48 Dose: 1,000 mls/hr Documented By: RB Ketorolac Tromethamine (Ketorolac 30 Mg/Ml Vial) 15 mg IV NOW ONE Stop: 03/11/23 16:49 Last Admin: 03/11/23 17:06 Dose: 15 mg Documented By: RB Vital Signs Vital signs: Vital Signs - 8 hr 03/11/23 16:09 03/11/23 17:11 03/11/23 17:12 Temperature 98.0 F Pulse Rate 81 73 75 Respiratory Rate 16 Blood Pressure 141/85 H Pulse Oximetry 99 95 93 Oxygen Delivery Method Room Air 03/11/23 17:12 03/11/23 17:15 Temperature Pulse Rate 85 Respiratory Rate Blood Pressure 136/76 Pulse Oximetry 95 Oxygen Delivery Method <Chu Diez DO - Last Filed: 03/12/23 13:00> Orders Ordered: Discontinued Medications Hydromorphone HCl (Hydromorphone 1 Mg Inj) 1 mg IV NOW ONE Stop: 03/11/23 16:49 Last Admin: 03/11/23 17:06 Dose: 1 mg Documented By: RB Hydromorphone HCl (Hydromorphone 1 Mg Inj) 1 mg IV NOW ONE Stop: 03/11/23 18:13 Last Admin: 03/11/23 18:17 Dose: 1 mg Documented By: RB Sodium Chloride (Normal Saline 0.9%) 1,000 mls @ 1,000 mls/hr IV BOLUS ONE Stop: 03/11/23 17:18 Last Infusion: 03/11/23 18:08 Dose: 0 mls/hr Documented By: Admin: 03/11/23 16:48 Dose: 1,000 mls/hr Documented By: RB Ketorolac Tromethamine (Ketorolac 30 Mg/Ml Vial) 15 mg IV NOW ONE Stop: 03/11/23 16:49 Last Admin: 03/11/23 17:06 Dose: 15 mg Documented By: YESSICA Vital Signs Vital signs: Vital Signs - 8 hr 03/11/23 16:09 03/11/23 17:11 03/11/23 17:12 Temperature 98.0 F Pulse Rate 81 73 75 Respiratory Rate 16 Blood Pressure 141/85 H Pulse Oximetry 99 95 93 Oxygen Delivery Method Room Air 03/11/23 17:12 03/11/23 17:15 Temperature Pulse Rate 85 Respiratory Rate Blood Pressure 136/76 Pulse Oximetry 95 Oxygen Delivery Method MDM - Back Pain/Injury <ANAYA Andrews - Last Filed: 03/11/23 18:29> Lab Data 03/11/23 16:25 03/11/23 16:25 Labs: Lab Results 03/11/23 03/11/23 03/11/23 Range/Units 16:25 16:25 16:25 WBC 9.4 (4.5-11.0) X10^3/uL RBC 4.88 (4.5-5.9) X10^6/uL Hgb 13.3 L (13.5-17.5) g/dL Hct 39.8 L (41-53) % MCV 81.6 (80-100) fL MCH 27.3 (26-34) PG MCHC 33.5 (30-36) % RDW 14.1 (11.6-14.8) % Plt Count 274 (150-400) X10^3/uL Neut % (Auto) 68.1 (50-75) % Lymph % (Auto) 21.8 L (25-40) % [place] % (Auto) 7.4 (3-14) % Eos % (Auto) 2.4 (2-4) % Baso % (Auto) 0.3 (0-2) % Neut # (Auto) 6400 (5433-3951) /uL Lymph # (Auto) 2000 (0693-1549) /uL [place] # (Auto) 700 (0-900) /uL Eos # (Auto) 200 (0-450) /uL Baso # (Auto) 0 (0-100) /uL Sodium 136 L (137-145) mmol/L Potassium 3.7 (3.4-5.1) mmol/L Chloride 97 L (98-107) mmol/L Carbon Dioxide 27 (22-32) mmol/L BUN 13 (9-20) mg/dL Creatinine 0.83 (0.66-1.25) mg/dL Estimated GFR > 60 (>60) mL/min BUN/Creatinine Ratio 15.7 (6-22) Glucose 110 H (70-100) mg/dL Lactate (0.7-2.1) mmol/L Calcium 9.3 (8.4-10.2) mg/dL Magnesium 2.0 (1.6-2.3) mg/dL Total Bilirubin 0.6 (0.2-1.3) mg/dL AST 28 (17-59) IU/L ALT 29 (<50) IU/L Alkaline Phosphatase 90 (38-126) U/L Total Protein 8.0 (6.3-8.2) g/dL Albumin 4.4 (3.5-5.0) g/dL Globulin 3.6 (1.7-4.1) g/dL Albumin/Globulin Ratio 1.2 (1.0-2.8) Lipase 64 D (23-300) U/L Procalcitonin (<0.5) ng/mL Urine RBC (0-5/HPF) Urine WBC (0-5/HPF) Ur Squamous Epith Cells (0-5/HPF) Ur Transition Epith Cell (0-5/HPF) Urine Bacteria (None) Ur Culture Indicated? 03/11/23 03/11/23 03/11/23 Range/Units 16:25 16:25 16:37 WBC (4.5-11.0) X10^3/uL RBC (4.5-5.9) X10^6/uL Hgb (13.5-17.5) g/dL Hct (41-53) % MCV (80-100) fL MCH (26-34) PG MCHC (30-36) % RDW (11.6-14.8) % Plt Count (150-400) X10^3/uL Neut % (Auto) (50-75) % Lymph % (Auto) (25-40) % [place] % (Auto) (3-14) % Eos % (Auto) (2-4) % Baso % (Auto) (0-2) % Neut # (Auto) (1252-0601) /uL Lymph # (Auto) (8961-2008) /uL [place] # (Auto) (0-900) /uL Eos # (Auto) (0-450) /uL Baso # (Auto) (0-100) /uL Sodium (137-145) mmol/L Potassium (3.4-5.1) mmol/L Chloride (98-107) mmol/L Carbon Dioxide (22-32) mmol/L BUN (9-20) mg/dL Creatinine (0.66-1.25) mg/dL Estimated GFR (>60) mL/min BUN/Creatinine Ratio (6-22) Glucose (70-100) mg/dL Lactate 1.0 (0.7-2.1) mmol/L Calcium (8.4-10.2) mg/dL Magnesium (1.6-2.3) mg/dL Total Bilirubin (0.2-1.3) mg/dL AST (17-59) IU/L ALT (<50) IU/L Alkaline Phosphatase (38-126) U/L Total Protein (6.3-8.2) g/dL Albumin (3.5-5.0) g/dL Globulin (1.7-4.1) g/dL Albumin/Globulin Ratio (1.0-2.8) Lipase (23-300) U/L Procalcitonin 0.06 (<0.5) ng/mL Urine RBC 0-1/hpf (0-5/HPF) Urine WBC 0-1/hpf (0-5/HPF) Ur Squamous Epith Cells 0-1 /hpf (0-5/HPF) Ur Transition Epith Cell 0-1/hpf (0-5/HPF) Urine Bacteria None seen (None) Ur Culture Indicated? Cult not indicated Urine Dip Bedside Urine Glucose Negative Bedside Urine Bilirubin - Negative Bedside Urine Ketone - Negative Urine Specific [place] 1.000 Bedside Urine pH 6.5 Bedside Urine Protein - Negative Bedside Urine Urobilinogen - Negative Bedside Urine Nitrite - Negative Bedside Urine Leukocytes - Negative Esterase Imaging Data CT scan - abdomen/pelvis: Radiologist's Impression: PROCEDURE:? CT ABDOMEN PELVIS W CON ? INDICATIONS:? RLQ, Rt flank pain, cholecystitis vs nephrolithiasis vs UTI ? TECHNIQUE:? After the administration of intravenous contrast, axial sections acquired from the lung bases to the pubic symphysis.? Coronal and sagittal reformats were performed.? For radiation dose reduction, the following was used:? automated exposure control, adjustment of mA and/or kV according to patient size.? ? COMPARISON:? [facility], CT, CT KIDNEY URETER BLADDER (KUB), 03/09/2023, 14:29. ? FINDINGS: ? Lower thorax: The lung bases are clear.? Heart size normal.? No hiatal hernia. ? Liver:? Normal in size and attenuation. No contour deformity present. ? Biliary system:? No calcified cholelithiasis or pericholecystic inflammation.? No intra or extrahepatic bile duct dilatation. ? Pancreas:? Unremarkable without mass or inflammation evident. ? Spleen:? Normal in size and density. ? Adrenals:? Normal morphology and density. ? Reproductive system:? Unremarkable as visualized. ? Urinary system:? Normal renal size and attenuation. Stable 2 mm left renal nonobstructing calculus.? No hydronephrosis bilaterally.? Urinary bladder unremarkable. ? Gastrointestinal system:? The bowel is unremarkable without evidence of bowel obstruction or inflammation. The stomach appears unremarkable. ? Appendix:? Normal appendix identified.? No evidence of appendicitis. ? Peritoneal spaces:? No mesenteric or retroperitoneal adenopathy.? No free air.? No free fluid.? ? Vasculature:? The IVC, aorta and iliac vasculature are unremarkable. ? Abdominal wall:? Abdominal wall intact without evidence of ventral or inguinal hernias. ? Musculoskeletal:? Normal bone mineralization.? No acute fractures.? Left-sided epidural pulse generator noted.? Multilevel arthropathy noted in the lower lumbar spine bilateral sacroiliac ankylosis ? IMPRESSION: ? 1. No acute CT findings in the abdomen and pelvis.? No change from prior exam 03/09/2023. ? 2. Stable left tiny renal calculus.? No CT evidence of cholecystitis, right nephrolithiasis or UTI.? ? 3. Bilateral sacroiliac ankylosis ? ? ? Approved by: Reymundo Pittman M.D. on 03/11/2023 at 16:57? US - abdomen: Radiologist's Impression: PROCEDURE:? US ABDOMEN LIMITED ? INDICATIONS:? RUQ PAIN, RIGHT FLANK PAIN, RLQ PAIN, RECENT US W/ GB SLUDGE ? TECHNIQUE:? Real-time scanning was performed of the abdominal and retroperitoneal organs, with image documentation.? ? COMPARISON:? [facility], CT, CT ABDOMEN PELVIS W CON, 03/11/2023, 16:32.? [facility], US, US ABDOMEN LIMITED, 03/09/2023, 15:50. ? FINDINGS:? ? Liver:? Hepatic parenchyma shows diffuse increased echogenicity consistent with fatty infiltration. ? Gallbladder:? Biliary sludge noted in the gallbladder.? Gallbladder wall is slightly thickened at 3.5 mm.? Small focus of hypoechoic focal fatty sparing noted adjacent to the gallbladder fossa ? Biliary ducts:? Intrahepatic bile ducts are non-dilated.? Extrahepatic bile duct caliber measures 5.8 mm.? Normal is 6-7 mm or less in diameter, or 10 mm or less post-cholecystectomy.? ? Kidneys:? Right kidney unremarkable without hydronephrosis ? Miscellaneous:? Right lower quadrant imaging fails to identify the appendix. ? ? IMPRESSION:? ? Biliary sludge in the gallbladder. ? Hepatic fatty infiltration with probable focal fatty sparing adjacent to the gallbladder fossa. ? Nonvisualized appendix.? Appendicitis not excluded. ? ? ? Approved by: Reymundo Pittman M.D. on 03/11/2023 at 17:14? MDM Narrative Medical decision making narrative: Chief Complaint: Worsening abdominal pain Primary historian: Patient Multiple etiologies for patient's complaint considered including, but not limi serena to: Cholecystitis, cholelithiasis, perforated viscus, diverticulitis, appendicitis, bowel obstruction, urinary tract infection, nephrolithiasis, pyelonephritis, acute viral process, I have independently reviewed the patient's vital signs and nursing notes as well as prior records if available. My interpretation of imaging: CT abdomen pelvis is negative for acute abnormality, no change from 03/09/2023 Abdominal ultrasound gallbladder with thickened wall and pericholecystic fluid, fatty liver, negative Valles sign, no right kidney abnormalities My interpretation of lab studies, no leukocytosis, CMP is unremarkable, no elevation to lipase, UA is negative for infection or blood Course of care: Patient was treated with 1 L normal saline, Dilaudid and Toradol for his pain, pending imaging Patient was re-dosed with Dilaudid for ongoing pain, CT shows no evidence of cholecystitis, nephrolithiasis or urinary tract infection, no changes from prior exam on 03/09/2023. Overall patient's lab work has improved without leukocytosis today, no elevation of liver enzymes, without anemia, electrolyte abnormality, urinary tract infection or other abnormality. His pain was better controlled with opioid medication. Prescribed for him hydrocodone to use as needed, lactulose for constipation, he is not had bowel movement 2 days and this is likely to worsen with opiate use. Recommend he stay hydrated, follow-up with general surgery as prescribed and return for worsening symptoms. Social considerations that may affect disposition: none Questions are addressed and there is agreement with the plan and for follow-up. I consulted with the ED attending physician Dr. Diez as needed for higher level of care considerations and they were available for discussion and recommendations regarding plan of care and diagnostic testing. Patient is appropriate for outpatient management. <Chu Diez, DO - Last Filed: 03/12/23 13:00> Lab Data Labs: Lab Results 03/11/23 03/11/23 03/11/23 Range/Units 16:25 16:25 16:25 WBC 9.4 (4.5-11.0) X10^3/uL RBC 4.88 (4.5-5.9) X10^6/uL Hgb 13.3 L (13.5-17.5) g/dL Hct 39.8 L (41-53) % MCV 81.6 (80-100) fL MCH 27.3 (26-34) PG MCHC 33.5 (30-36) % RDW 14.1 (11.6-14.8) % Plt Count 274 (150-400) X10^3/uL Neut % (Auto) 68.1 (50-75) % Lymph % (Auto) 21.8 L (25-40) % [place] % (Auto) 7.4 (3-14) % Eos % (Auto) 2.4 (2-4) % Baso % (Auto) 0.3 (0-2) % Neut # (Auto) 6400 (5720-5393) /uL Lymph # (Auto) 2000 (1456-3094) /uL [place] # (Auto) 700 (0-900) /uL Eos # (Auto) 200 (0-450) /uL Baso # (Auto) 0 (0-100) /uL Sodium 136 L (137-145) mmol/L Potassium 3.7 (3.4-5.1) mmol/L Chloride 97 L (98-107) mmol/L Carbon Dioxide 27 (22-32) mmol/L BUN 13 (9-20) mg/dL Creatinine 0.83 (0.66-1.25) mg/dL Estimated GFR > 60 (>60) mL/min BUN/Creatinine Ratio 15.7 (6-22) Glucose 110 H (70-100) mg/dL Lactate (0.7-2.1) mmol/L Calcium 9.3 (8.4-10.2) mg/dL Magnesium 2.0 (1.6-2.3) mg/dL Total Bilirubin 0.6 (0.2-1.3) mg/dL AST 28 (17-59) IU/L ALT 29 (<50) IU/L Alkaline Phosphatase 90 (38-126) U/L Total Protein 8.0 (6.3-8.2) g/dL Albumin 4.4 (3.5-5.0) g/dL Globulin 3.6 (1.7-4.1) g/dL Albumin/Globulin Ratio 1.2 (1.0-2.8) Lipase 64 D (23-300) U/L Procalcitonin (<0.5) ng/mL Urine RBC (0-5/HPF) Urine WBC (0-5/HPF) Ur Squamous Epith Cells (0-5/HPF) Ur Transition Epith Cell (0-5/HPF) Urine Bacteria (None) Ur Culture Indicated? 03/11/23 03/11/23 03/11/23 Range/Units 16:25 16:25 16:37 WBC (4.5-11.0) X10^3/uL RBC (4.5-5.9) X10^6/uL Hgb (13.5-17.5) g/dL Hct (41-53) % MCV (80-100) fL MCH (26-34) PG MCHC (30-36) % RDW (11.6-14.8) % Plt Count (150-400) X10^3/uL Neut % (Auto) (50-75) % Lymph % (Auto) (25-40) % [place] % (Auto) (3-14) % Eos % (Auto) (2-4) % Baso % (Auto) (0-2) % Neut # (Auto) (2027-4332) /uL Lymph # (Auto) (5999-1323) /uL [place] # (Auto) (0-900) /uL Eos # (Auto) (0-450) /uL Baso # (Auto) (0-100) /uL Sodium (137-145) mmol/L Potassium (3.4-5.1) mmol/L Chloride (98-107) mmol/L Carbon Dioxide (22-32) mmol/L BUN (9-20) mg/dL Creatinine (0.66-1.25) mg/dL Estimated GFR (>60) mL/min BUN/Creatinine Ratio (6-22) Glucose (70-100) mg/dL Lactate 1.0 (0.7-2.1) mmol/L Calcium (8.4-10.2) mg/dL Magnesium (1.6-2.3) mg/dL Total Bilirubin (0.2-1.3) mg/dL AST (17-59) IU/L ALT (<50) IU/L Alkaline Phosphatase (38-126) U/L Total Protein (6.3-8.2) g/dL Albumin (3.5-5.0) g/dL Globulin (1.7-4.1) g/dL Albumin/Globulin Ratio (1.0-2.8) Lipase (23-300) U/L Procalcitonin 0.06 (<0.5) ng/mL Urine RBC 0-1/hpf (0-5/HPF) Urine WBC 0-1/hpf (0-5/HPF) Ur Squamous Epith Cells 0-1 /hpf (0-5/HPF) Ur Transition Epith Cell 0-1/hpf (0-5/HPF) Urine Bacteria None seen (None) Ur Culture Indicated? Cult not indicated Urine Dip Bedside Urine Glucose Negative Bedside Urine Bilirubin - Negative Bedside Urine Ketone - Negative Urine Specific [place] 1.000 Bedside Urine pH 6.5 Bedside Urine Protein - Negative Bedside Urine Urobilinogen - Negative Bedside Urine Nitrite - Negative Bedside Urine Leukocytes - Negative Esterase Discharge Plan Departure Patient Disposition: Home Clinical Impression: Biliary sludge Abdominal pain Qualifiers: Abdominal location: generalized Qualified Code(s): R10.84 - Generalized abdominal pain Instructions: DI for Gallstones, DI for Abdominal Pain-Adult Activity Restrictions/Additional Instructions: *You have been diagnosed with sludge in the gallbladder without evidence of infection of the gallbladder wall or bladder infection, no kidney infection, no kidney stones, nothing dangerous on your workup today and in fact, your blood work has improved since your recent visit. No urinary tract infection or blood in your urine. Please focus on your hydration, follow-up with general surgery, follow a low-fat diet and use Zofran for nausea, pain pills as needed for your pain, and please take MiraLax or lactulose for soft stool. The CT of your abdomen is reassuring as well as the lab work, there are no new changes and no changes from your recent exam. No evidence of infection of the gallbladder, kidney stones, or a bladder infection. Your blood work looks like you have improved since you were here 2 days ago and your white blood cell count is no longer elevated, everything else looks stable and without concern. *What to do: *Please continue to take your regular medications as directed. [x ] New medication prescriptions sent to your pharmacy: [ [facility]] [ ] New medication written as a paper prescription [ ] No new medications given *Please call and schedule follow up with your primary care provider in 2-3 days, at least for an update. Let them know you were seen in the Emergency Department for the above problem. We will electronically transmit a record of today's note if your PCP or specialist is in our system. *If you do not have a primary care provider please contact [phone] to establish care with one of the [facility] primary care providers. *Return to the Emergency Department for worsening symptoms, inability to keep liquids down, fever greater than 101F, chills, or other concerning symptom. Prescriptions: New hydrocodone-acetaminophen 5-325 mg tablet 1 tab PO BID PRN (Reason: pain) Qty: 10 0RF lactulose [Constulose] 10 gram/15 mL solution 10 g PO DAILY PRN (Reason: constipation) Qty: 237 0RF No Action allopurinol 300 mg tablet 300 mg TID colchicine 0.6 mg tablet 0.6 mg PO DAILY metformin 500 mg Tablet 500 mg PO BID hydrocodone-acetaminophen 10-325 mg tablet 1 tab PO Q6HR sildenafil [Viagra] 100 mg Tablet See Rx Instructions .ROUTE .COMPLEX PRN (Reason: Erectile Dysfunction) Rx Instructions: 100 mg orally as needed duloxetine 60 mg capsule,delayed release(DR/EC) 60 mg PO DAILY linezolid 600 mg tablet 600 mg PO BID Qty: 10 0RF hydrocodone-acetaminophen 5-325 mg tablet 1 tab PO Q4-6H PRN (Reason: pain) Qty: 20 0RF ondansetron 4 mg tablet,disintegrating 4 mg PO TID-QID PRN (Reason: nausea and vomiting) Qty: 10 0RF lisinopril 20 mg tablet 20 mg PO DAILY Referrals: Owen Shepherd PA-C [Primary Care Provider] - Stand Alone Forms: Patient Portal/API <Chu Diez DO - Last Filed: 03/12/23 13:00> [facility] Attestation: I was immediately available in the department for consultation. Documentation has been reviewed. I agree with assessment and plan.
--- NOTE | 2023-03-11 16:32 | DI.CT.S_ITS ---
PROCEDURE: CT ABDOMEN PELVIS W CON INDICATIONS: RLQ, Rt flank pain, cholecystitis vs nephrolithiasis vs UTI TECHNIQUE: After the administration of intravenous contrast, axial sections acquired from the lung bases to the pubic symphysis. Coronal and sagittal reformats were performed. For radiation dose reduction, the following was used: automated exposure control, adjustment of mA and/or kV according to patient size. COMPARISON: [facility], CT, CT KIDNEY URETER BLADDER (KUB), 03/09/2023, 14:29. FINDINGS: Lower thorax: The lung bases are clear. Heart size normal. No hiatal hernia. Liver: Normal in size and attenuation. No contour deformity present. Biliary system: No calcified cholelithiasis or pericholecystic inflammation. No intra or extrahepatic bile duct dilatation. Pancreas: Unremarkable without mass or inflammation evident. Spleen: Normal in size and density. Adrenals: Normal morphology and density. Reproductive system: Unremarkable as visualized. Urinary system: Normal renal size and attenuation. Stable 2 mm left renal nonobstructing calculus. No hydronephrosis bilaterally. Urinary bladder unremarkable. Gastrointestinal system: The bowel is unremarkable without evidence of bowel obstruction or inflammation. The stomach appears unremarkable. Appendix: Normal appendix identified. No evidence of appendicitis. Peritoneal spaces: No mesenteric or retroperitoneal adenopathy. No free air. No free fluid. Vasculature: The IVC, aorta and iliac vasculature are unremarkable. Abdominal wall: Abdominal wall intact without evidence of ventral or inguinal hernias. Musculoskeletal: Normal bone mineralization. No acute fractures. Left-sided epidural pulse generator noted. Multilevel arthropathy noted in the lower lumbar spine bilateral sacroiliac ankylosis IMPRESSION: 1. No acute CT findings in the abdomen and pelvis. No change from prior exam 03/09/2023. 2. Stable left tiny renal calculus. No CT evidence of cholecystitis, right nephrolithiasis or UTI. 3. Bilateral sacroiliac ankylosis Approved by: Reymundo Pittman M.D. on 03/11/2023 at 16:57
[2023-03-11 16:41] LABS: Add Manual Diff / Slide Review NO; Basophils Absolute Auto 0 /uL (0-100); Basophils Percent Auto 0.3 % (0-2); Eosinophils Absolute Auto 200 /uL (0-450); Eosinophils Percent Auto 2.4 % (2-4); Hematocrit 39.8 % (41-53); Hemoglobin 13.3 g/dL (13.5-17.5); Lymphocytes Absolute Auto 2000 /uL (1100-4500); Lymphocytes Percent Auto 21.8 % (25-40); Mean Corpuscular HGB Conc 33.5 % (30-36); Mean Corpuscular Hemoglobin 27.3 PG (26-34); Mean Corpuscular Volume 81.6 fL (80-100); Monocytes Absolute Auto 700 /uL (0-900); Monocytes Percent Auto 7.4 % (3-14); Neutrophils Absolute Auto 6400 /uL (1500-7000); Neutrophils Percent Auto 68.1 % (50-75); Platelet Count 274 X10^3/uL (150-400); Red Blood Cell Count 4.88 X10^6/uL (4.5-5.9); Red Cell Distribution Width 14.1 % (11.6-14.8); White Blood Cell Count 9.4 X10^3/uL (4.5-11.0)
[2023-03-11] MEDS: SODIUM CHLORIDE 0.9% 1,000 ML 1000 ML IV (16:48)
[2023-03-11 16:52] LABS: Alanine Aminotransferase 29 IU/L (<50); Albumin 4.4 g/dL (3.5-5.0); Albumin Globulin Ratio 1.2 (1.0-2.8); Alkaline Phosphatase 90 U/L (38-126); Aspartate Aminotransferase 28 IU/L (17-59); BUN Creatinine Ratio 15.7 (6-22); Bilirubin Total 0.6 mg/dL (0.2-1.3); Blood Urea Nitrogen 13 mg/dL (9-20); Calcium 9.3 mg/dL (8.4-10.2); Carbon Dioxide 27 mmol/L (22-32); Chloride 97 mmol/L (98-107); Estimated Glomerular Filt Rate > 60 mL/min (>60); Globulin 3.6 g/dL (1.7-4.1); Glucose 110 mg/dL (70-100); HEMOLYSIS < 15 (0-50); Lipase 64 U/L (23-300); Potassium 3.7 mmol/L (3.4-5.1); Sodium 136 mmol/L (137-145)
[2023-03-11] MEDS: KETOROLAC 30 MG/ML VIAL 15 MG IV (17:06)
[2023-03-11] MEDS: HYDROMORPHONE 1 MG INJ IV ×2 (17:06→18:17)
[2023-03-11 17:28] LABS: Bacteria Urine None Seen; Culture Indicated Urine Cult Not Indicated; RBC Urine 0-1/HPF (0-5/HPF); Squamous Epithelial Cell Urine 0-1 /HPF (0-5/HPF); Transitional Epi Cells Urine 0-1/HPF (0-5/HPF); WBC Urine 0-1/HPF (0-5/HPF)
[2023-03-11 17:47] LABS: Procalcitonin 0.06 ng/mL (<0.5)
== END 2023-03-11 18:38 | disposition home or self-care (01) ==
PROVIDERS: Emergency Provider Nurse Practitioner Critical Care Medicine; PCP Student in an Organized Health Care Education/Training Program
DX: R10.84 Generalized abdominal pain (principal); K83.8 Other specified diseases of biliary tract; R31.9 Hematuria, unspecified
CPT/HCPCS: 36415; 74177; 76705; 80053; 81003; 81015; 83605; 83690; 83735; 84145; 85025; 96361; 96374; 96375; 96376; 99284; J1170; J1885

== ENCOUNTER 2023-03-16 06:43 | Day surgery (SDC) | payer MEDICARE, MEDICAID, SELFPAY ==
[2021-07-18 16:55] VITALS: BMI 39.9
[2023-03-15 08:13] VITALS: BMI 38.0
[2023-03-16] VITALS (13 sets, daily range): BP systolic 116–162; BP diastolic 77–94; PULSE 86–110; RESP 12–23; TEMP 36.2–36.6; O2SAT 89–96; BMI 38.0
--- NOTE | 2023-03-16 | PATH_ITS ---
[facility] Accession Number: [id number] No. of containers..01 Tissue . 01 Material submitted: . gallbladder - GALLBLADDER . 01 Diagnosis: Gallbladder, Cholecystectomy: Mild chronic cholecystitis. No evidence of neoplasm. [facility] 03/21/2023 1535 Local . 01 Electronically signed: . Darvin Paulino MD, PhD, Pathologist NPI- [id number] . 01 Gross description: . The specimen is received in formalin labeled with the patient's name, , and gallbladder, and consists of an intact gallbladder measuring 8.2 x 3.4 x 2.1 cm. The external surface is unremarkable. The cystic duct margin is received patent, is inked blue, and no pericystic lymph node is identified. The lumen contains a small amount of green mucoid bile with no calculi identified in the lumen or the container. The mucosa is green and velvety with yellow areas of discoloration. No polyps or lesions are identified. The jensen average 0.5 cm thick. Assistant Public Defender sections to include the cystic duct margin and full-thickness sections are submitted in cassette A1. ([id number]) /[facility] 03/18/2023 1236 Local . 01 Pathologist provided ICD-10: K81.1 . 01 CPT . 093396 Specimen Comment: A courtesy copy of this report has been sent to [facility] Performed at: [address] [facility] [address] [place] [address], [place], [place] [id number] MD Herson Hsieh MD Phone: [phone]
[2023-03-16] MEDS: LACTATED RINGERS 1,000 ML 42 ML IV ×2 (07:32→08:58)
--- NOTE | 2023-03-16 07:32 | SUR.PREOP ---
very nervous. c/o pain. gout flare ups in multiple joints. chronic back pain, joint pain. post op instructions discussed.
--- NOTE | 2023-03-16 07:40 | PM.PREOP ---
Pre-operative Note Interval Note History & Physical reviewed/Exam performed by Physician: Yes Changes to H&P: No
[2023-03-16] MEDS: CEFAZOLIN VIAL 1 GM in SODIUM CHLORIDE 0.9% 100 ML IV (07:55)
[2023-03-16] MEDS: CEFAZOLIN 2 GM/100 ML PREMIX 100 ML IV (07:55)
--- NOTE | 2023-03-16 08:14 | SUR.OPER ---
Supine on padded OR bed, head on pillow, safety belt at thigh, BOTH armS secured on padded arm board <90 degrees abduction. Legs uncrossed. Padded footboard in place. Tape over blanket to secure lower legs.
[2023-03-16] MEDS: BUPIVACAINE 0.5% (PF) 30 ML, EPINEPHrine 0.15 MG INJ (08:39)
--- NOTE | 2023-03-16 09:30 | P.OP_ITS ---
Operative Date/Time/Diagnoses Date of procedure: 03/16/23 Time of procedure: 09:30 Pre-op diagnosis: Acute cholecystitis Post-op diagnosis: same Procedure & Clinicians Procedure: Laparoscopic cholecystectomy Same procedure as scheduled: Yes Indications: Acute cholecystitis please see H and P from clinic visit Surgeon: Earline Neumann [place] Working Supervisor: Kelli Arroyo Anesthesia Type: General Operative Notes Specimen(s): other (Gallbladder) Procedure in detail: Patient was taken to the operating room and placed in a supine position. Bilateral SCDs were in place and preoperative antibiotics were administered. A time-out was performed. General endotracheal anesthesia was induced. The abdomen was prepped and draped in the usual sterile fashion. Local anesthetic was infused above the umbilicus an 11 blade scalpel was used to make a 12 mm incision in the skin and electrocautery was used to carry the incision down through the subcutaneous tissues to Juan Diego graspers were used to elevate the anterior abdominal wall. This was entered sharply under direct visualization with an 11 blade scalpel. Intra-abdominal location was confirmed with a finger sweep. Two 0 Vicryl sutures on a UR 6 needle were used to place the fascial closure stitches. The Giovani trocar was then introduced into the abdomen and the abdomen was insufflated. A 5 mm 30 degree laparoscope was placed into the abdomen. There was no evidence of entry injury. Three 5 mm accessory trocars were placed under direct visualization after infusing local anesthetic in the subcostal positions. A grasper was used to retract the gallbladder cephalad. Using [place] and hook cautery dissection of a critical view was performed. The cystic duct was seen entering directly into the gallbladder in multiple view points. This structure was doubly clipped on the stay side and once on the specimen side and ligated. The cystic artery was then doubly clipped and ligated. The gallbladder was then relieved from the gallbladder fossa using electrocautery. The liver bed was checked for hemostasis and the clips were checked for security before the gallbladder was removed through the umbilical port site using an Endo-Catch bag. The accessory trocars were removed under direct visualization. The abdomen was desufflated. The fascia was closed with the previously placed sutures and the skin was closed with 4-0 running Monocryl and dressed with Steri-Strips. Patient tolerated the procedure well and went in good condition to the postoperative care unit there were no complications and EBL was minimal. Complications: none Post-operative Condition: stable Disposition: PACU
[2023-03-16] MEDS: HYDROMORPHONE 2 MG INJ IV ×5 (09:31→10:12)
[2023-03-16] MEDS: OXYCODONE/ACETAMINOPHEN 5/325 TABLET 1 TAB PO ×2 (09:46→10:17)
[2023-03-16] MEDS: ACETAMINOPHEN IV 1,000 MG/100 ML VIAL 400 MG IV (10:17)
[2023-03-16] MEDS: ONDANSETRON 4 MG/2 ML INJ IV (10:52)
== END 2023-03-16 11:19 | disposition home or self-care (01) ==
PROVIDERS: PCP Student in an Organized Health Care Education/Training Program; Referring Provider Surgery; Visit Provider Surgery
PROC: 0FT44ZZ Resection of Gallbladder, Percutaneous Endoscopic Approach (ICD-10-PCS; CPT 47562; principal; 2023-03-16 07:45)
DX: K81.1 Chronic cholecystitis (principal)
CPT/HCPCS: 47562; 82962; J0131; J0171; J0330; J0690; J1100; J1170; J2405; J2704; J3010

== ENCOUNTER 2023-04-22 11:14 | Emergency (ER) | payer MEDICARE, SELFPAY ==
[2021-07-18 16:55] VITALS: BMI 39.9
[2023-04-22 11:25] VITALS: BP 136/89; PULSE 84; RESP 20; TEMP 36.6; O2SAT 97; BMI 36.2
--- NOTE | 2023-04-22 13:48 | ED.LOWEXIN ---
HPI - Extremity Injury (Lower) General Chief Complaint: Extremity Injury, Lower Stated Complaint: Thinks tore MCL Time Seen by Provider: 04/22/23 15:03 Source: patient Mode of arrival: Ambulatory History of Present Illness HPI Narrative: Patient 42-year-old male history of diabetes, hypertension, chronic back pain presenting today with left knee pain. He reports that a week and a half ago he was going downstairs when he heard a pop felt knee slide medially and he fell. He was seen evaluated at [facility] he had an x-ray which was negative and he was discharged home. Due to his spinal stimulator he has been unable to get an MRI. He says that he has since turned it off. He denies any numbness tingling or weakness. At some point it was suggested to him that he get a CT. He denies any numbness tingling or weakness he is able to bear weight. He is using a knee brace that he got but overall still having pain. He has been taking Motrin Tylenol elevating and icing it. He has crutches home. Trying to figure out how to get an MRI. Related Data Home Medications Medication Instructions Recorded Confirmed metformin 500 mg tablet 500 mg PO BID 12/07/20 03/28/23 sildenafil 100 mg tablet (Viagra) See Rx Instructions .Route 12/07/20 03/28/23 .COMPLEX PRN Erectile Dysfunction lisinopril 20 mg tablet 20 mg PO DAILY 01/27/21 03/28/23 duloxetine 60 mg capsule,delayed 60 mg PO DAILY 07/18/21 03/28/23 release rosuvastatin 40 mg tablet (Crestor) 40 mg PO DAILY 03/16/23 03/28/23 Previous Rx's Medication Instructions Recorded lactulose 10 gram/15 mL oral 10 g (15 mL) PO DAILY PRN 03/11/23 solution (Constulose) constipation #237 mL docusate sodium 100 mg capsule 100 mg PO BID #30 caps 03/16/23 (Colace) ibuprofen 600 mg tablet 600 mg PO QID #30 tabs 03/16/23 hydrocodone 5 mg-acetaminophen 325 1 tab PO BID PRN pain #10 tabs 03/28/23 mg tablet hydrocodone 5 mg-acetaminophen 325 1 tab PO Q6H PRN pain #10 tabs 04/22/23 mg tablet Allergies Allergy/AdvReac Type Severity Reaction Status Date / Time pegloticase [From Krystexxa] Allergy Severe Anaphylaxis Verified 04/22/23 11:42 cephalexin [From Keflex] Allergy groin rash Verified 04/22/23 11:42 codeine Allergy Verified 04/22/23 11:42 [From Tylenol-Codeine #3] Review of Systems Review of Systems ROS Unobtainable: All systems reviewed & are unremarkable except as noted in HPI and below Patient History Medical History Anxiety Cellulitis Chronic back pain Degenerative arthritis Degenerative disorder of bone Depression Diabetes Gout Psoriatic arthritis Rheumatoid arthritis Sleep apnea Surgical History History of knee surgery History of surgery on wrist Social History household members: significant other Smoking Status: Former smoker alcohol intake: former Smoking Status: Former smoker alcohol intake frequency: holidays/special occasions only Substance Use Type: marijuana Exam Initial Vital Signs Initial Vital Signs: Vital Signs Temperature 97.9 F 04/22/23 11:25 Pulse Rate 84 04/22/23 11:25 Respiratory Rate 20 04/22/23 11:25 Blood Pressure 136/89 04/22/23 11:25 Pulse Oximetry 97 04/22/23 11:25 Oxygen Delivery Method Room Air 04/22/23 11:25 GENERAL: Well-appearing, well-nourished and in no acute distress. CARDIOVASCULAR: peripheral pulses in tact, cap refill <2 sec RESPIRATORY: No respiratory distress, speaks in full sentences without difficulty EXTREMITIES: Normal range of motion, no clubbing or edema. Neurovascularly intact Left knee scar noted no significant effusion but mild no erythema distal pedal pulse intact slight weakness medially but anterior posterior drawer stable. NEUROLOGICAL: Cranial nerves II through XII grossly intact. Normal gait and speech. SKIN: Warm, dry, no petechiae, no rashes or lesions. Course Vital Signs Vital signs: Vital Signs - 8 hr 04/22/23 11:25 04/22/23 15:46 Temperature 97.9 F Pulse Rate 84 88 Respiratory Rate 20 Blood Pressure 136/89 114/73 Pulse Oximetry 97 97 Oxygen Delivery Method Room Air Room Air MDM - Extremity Injury (Lower) MDM Narrative Medical decision making narrative: Well-appearing 42-year-old male who had any injury week and half ago he has had an x-ray which was negative. He is able to bear weight so low suspicion for underlying fracture. I do suspect he has a ligamentous injury however due to spinal stimulator unable to get an MRI no nor is it emergent. He has turned it off. He will need to go to a different facility for the MRI. Recommend talking to orthopedics along with PCP. He is given a knee immobilizer he is crutches at home and stronger pain medication. Requested in waited for [facility] records but unable to get them. Discharge Plan Departure Patient Disposition: Home Clinical Impression: Knee MCL sprain Instructions: DI for Knee Sprain Activity Restrictions/Additional Instructions: *You have been diagnosed with left knee sprain *What to do: At this time wear knee immobilizer use crutches as needed continue to elevate and ice. You do need an MRI however not able to do so at this facility due to stimulator. [facility] may try [facility] imaging. Please call orthopedics in your PCP for recommendations. *Continue to take medications as directed Motrin 600 mg every 6 hours if needed for xbfb-lc-bbtzdhgf pain Landing 1 tablet every 6 hours if needed for severe pain--> SAFEWAY Tylenol 650 mg every 4-6 hours if needed for dnen-jt-qwcuezlk pain *Follow up with your primary care provider in 2-3 days or call [phone] [facility] call Monday to schedule appointment *Return to ER if you should have increasing pain numbness tingling weakness redness fever or any new, worsening or concerning symptoms CONTROLLED SUBSTANCE DISCHARGE (Narcotoic/benzodiazepine/Flexeril/Phenergan) 1. You have been prescribed narcotic medications, it does have acetaminophen/Tylenol/paracetamol in it, DO NOT TAKE MORE THAN 4,00mg in 24 hours of Tylenol. TRAMADOL DOES NOT CONTAIN TYLENOL 2. Please understand that we cannot provide further refills of narcotics, benzodiazepines or controlled substances through the ED and her pain management will need to be through your provider. 3. While on these medications you cannot drive or operate heavy machinery. 4. You cannot sign legal documents or perform any duties such as this. 5. As long as you're taking opiate pain medications he should also be taking a stool softener such as Colace, Dulcolax, MiraLAX or prune juice, to help avoid constipation. Prescriptions: New hydrocodone-acetaminophen 5-325 mg tablet 1 tab PO Q6H PRN (Reason: pain) Qty: 10 0RF No Action hydrocodone-acetaminophen 5-325 mg tablet 1 tab PO BID PRN (Reason: pain) Qty: 10 0RF metformin 500 mg Tablet 500 mg PO BID sildenafil [Viagra] 100 mg Tablet See Rx Instructions .ROUTE .COMPLEX PRN (Reason: Erectile Dysfunction) Rx Instructions: 100 mg orally as needed rosuvastatin [Crestor] 40 mg tablet 40 mg PO DAILY ibuprofen 600 mg tablet 600 mg PO QID Qty: 30 0RF Rx Instructions: Take every 6 hours for the next 2-3 days. Alternate with Landing or Tylenol. Take a pain medication every three hours. Ibuprofen, then either 1. two tabs of Landing, 2. one Landing, one extra strength Tylenol, OR 3. two extra strength Tylenol. When you are comfortable on a regimen of alternating regular Tylenol and ibuprofen then you may start decreasing your total pain medication. Please call the office of [facility] with at least 24 hours notice if you need a refill on pain medication docusate sodium [Colace] 100 mg capsule 100 mg PO BID Qty: 30 0RF Rx Instructions: Please take Colace twice daily while taking narcotic pain medicine to prevent constipation. If you feel constipated and have not had a bowel movement in 2-3 days please call the office for guidance. You may take any cogk-ajq-isszlsp stool softener or laxative that has worked for you to treat constipation in the past. duloxetine 60 mg capsule,delayed release(DR/EC) 60 mg PO DAILY lactulose [Constulose] 10 gram/15 mL solution 10 g PO DAILY PRN (Reason: constipation) Qty: 237 0RF lisinopril 20 mg tablet 20 mg PO DAILY Referrals: Oewn Shepherd PA-C [Primary Care Provider] - Stand Alone Forms: Patient Portal/API
[2023-04-22 15:46] VITALS: BP 114/73; PULSE 88; O2SAT 97
== END 2023-04-22 15:48 | disposition home or self-care (01) ==
PROVIDERS: Emergency Provider Emergency Medicine; PCP Student in an Organized Health Care Education/Training Program
DX: S83.412A Sprain of medial collateral ligament of left knee, initial encounter (principal); X50.1XXA Overexertion from prolonged static or awkward postures, initial encounter
CPT/HCPCS: 99282

== ENCOUNTER 2025-01-19 11:47 | Emergency (ER) | payer MEDICARE, OTHER, SELFPAY ==
[2021-07-18 16:55] VITALS: BMI 39.9
[2025-01-19 11:57] VITALS: BP 160/102; PULSE 89; RESP 18; TEMP 37.1; O2SAT 98; BMI 38.1
--- NOTE | 2025-01-19 12:04 | DI.RAD.S_ITS ---
PROCEDURE: XR FOOT LT MIN 3V INDICATIONS: gout flair TECHNIQUE: 3 views of the foot were acquired. COMPARISON: [facility], CR, XR ANKLE LT MIN 3V, 01/19/2025, 11:59. FINDINGS: Bones: Diffuse osseous demineralization. There is diffuse midfoot joint space loss and bony fixation to include the metatarsals and cuneiform bones and to a lesser degree the navicular bone and calcaneus. Dorsal beaking of the talar navicular joint. Severe joint space loss of the 5th metatarsophalangeal joint. Moderate osteoarthritic changes of the 1st metatarsophalangeal joint. Questionable small erosions at the 1st metatarsal head and 5th metatarsal head. Calcaneal spurs. No suspicious bony lesions. Soft tissues: No tibiotalar joint effusion. Achilles tendon appears normal. 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 Moderate to severe forefoot degenerative change with questionable lucencies of the metatarsal heads suggestive of erosive arthropathy. Calcaneal spurs. Dictated by: Mike Lion M.D. on 01/19/2025 at 11:42 Approved by: Mike Lion M.D. on 01/19/2025 at 11:46
--- NOTE | 2025-01-19 12:04 | DI.RAD.S_ITS ---
PROCEDURE: XR ANKLE LT MIN 3V INDICATIONS: gout flair TECHNIQUE: 3 views of the ankle were acquired. COMPARISON: None. FINDINGS: Bones: No fractures or dislocations. Ankle mortise is normally aligned. No suspicious bony lesions. Moderate osteoarthritic changes of the talonavicular joint. Dorsal beaking talofibular joint with midfoot coalition. Calcaneal spurs. Soft tissues: No tibiotalar joint effusion. Achilles tendon appears normal. Calcification along the distal fibula near the lateral malleolus may reflect tophus formation versus heterotopic calcification IMPRESSION: Calcifications along with superficial tissues near the lateral malleolus may reflect resolving ossification versus tophus Dictated by: Mike Lion M.D. on 01/19/2025 at 11:47 Approved by: Mike Lion M.D. on 01/19/2025 at 11:49
--- NOTE | 2025-01-19 13:24 | ED_ITS ---
HPI - Extremity Problem General Chief complaint: Extremity Problem,Nontraumatic Stated complaint: Gout Attack in L Foot Time Seen by Provider: 01/19/25 13:24 Source: patient, RN notes reviewed and old records reviewed Mode of arrival: Ambulatory Limitations: no limitations History of Present Illness HPI Narrative: 44-year-old male history of hypertension, dyslipidemia, diabetes, gout with complaint of left ankle gout flare starting Monday night. Was prescribed colchicine, indomethacin, acetaminophen and ibuprofen with no relief improvement. Patient used to take allopurinol but was often for some time. He denies any fevers. No warmth. He states it is in the left lateral malleolar region sort of posterior. He has had gout flares in the same place. He has had multiple gout flares in various locations and had tophi resected in the past but not at this location. Denies any other symptoms. States feels very similar. States he did 2 tablets with the colchicine in the 1st day followed by 1 tablet daily, has been taking indomethacin as well without any improvement. States his glucose has been well controlled. Has had multiple orthopedic surgeries. Has not allergy to cephalexin and codeine. He tolerates other narcotics without issue. Occasionally chews tobacco, occasional alcohol, no IV drugs, occasional marijuana. Is establishing with a primary care with Dr. Quick on Monday. Has moved from the [place] area does need referral to Podiatry or Orthopedic surgery. Related Data Home Medications Medication Instructions Recorded Confirmed metformin 500 mg tablet 500 mg PO BID 12/07/20 03/28/23 sildenafil 100 mg tablet (Viagra) See Rx Instructions .Route 12/07/20 03/28/23 .COMPLEX PRN Erectile Dysfunction lisinopril 20 mg tablet 20 mg PO DAILY 01/27/21 03/28/23 duloxetine 60 mg capsule,delayed 60 mg PO DAILY 07/18/21 03/28/23 release rosuvastatin 40 mg tablet (Crestor) 40 mg PO DAILY 03/16/23 03/28/23 Previous Rx's Medication Instructions Recorded lactulose 10 gram/15 mL oral 10 g (15 mL) PO DAILY PRN 03/11/23 solution (Constulose) constipation #237 mL docusate sodium 100 mg capsule 100 mg PO BID #30 caps 03/16/23 (Colace) ibuprofen 600 mg tablet 600 mg PO QID #30 tabs 03/16/23 hydrocodone 5 mg-acetaminophen 325 1 tab PO BID PRN pain #10 tabs 03/28/23 mg tablet hydrocodone 5 mg-acetaminophen 325 1 tab PO Q6H PRN pain #10 tabs 04/22/23 mg tablet hydrocodone 5 mg-acetaminophen 325 1 tab PO Q6H PRN pain #10 tabs 01/19/25 mg tablet prednisone 10 mg tablets in a dose See Rx Instructions PO .COMPLEX 01/19/25 pack #21 ea Allergies Allergy/AdvReac Type Severity Reaction Status Date / Time pegloticase [From Krystexxa] Allergy Severe Anaphylaxis Verified 01/19/25 12:00 cephalexin [From Keflex] Allergy groin rash Verified 01/19/25 12:00 codeine Allergy Verified 01/19/25 12:00 [From Tylenol-Codeine #3] Review of Systems Review of Systems ROS Unobtainable: All systems reviewed & are unremarkable except as noted in HPI and below Patient History Medical History Sleep apnea Diabetes Depression Anxiety Cellulitis Chronic back pain Gout Degenerative disorder of bone Degenerative arthritis Rheumatoid arthritis Psoriatic arthritis Surgical History History of knee surgery History of surgery on wrist Social History household members: significant other Smoking Status: Former smoker alcohol intake: former Smoking Status: Former smoker alcohol intake frequency: holidays/special occasions only Exam Narrative Exam Narrative: GENERAL: Alert and oriented x three, male in moderate distress HEENT: Head normocephalic, atraumatic, EOMI, pupils reactive, face symmetric, moist mucous membranes NECK: Supple, full range of motion CARDIOVASCULAR: Regular rate and rhythm without murmurs, rubs or gallops. RESPIRATORY: Breath sounds equal bilaterally, no wheezes rales or rhonchi. ABDOMEN: Soft, nontender. Normoactive bowel sounds all 4 quadrants. No guarding or rebound, rigidity, no mass EXTREMITIES: Normal range of motion, no clubbing. Patient has a little bit of swelling over the lateral malleoli, he was tender over that area some slight erythema no warmth. He does have feels like a gouty tophi over the Achilles tendon. It is minimally tender there was no warmth. It is intact on examination. He was 2+ dorsalis pedis with no other bony tenderness. Neurovascularly intact. NEUROLOGICAL: Cranial nerves II through XII grossly intact. Moving all extremities SKIN: Warm, dry, no petechiae, no rashes or lesions. Initial Vital Signs Initial Vital Signs: Vital Signs Temperature 98.8 F 01/19/25 11:57 Pulse Rate 89 01/19/25 11:57 Respiratory Rate 18 01/19/25 11:57 Blood Pressure 160/102 H 01/19/25 11:57 Pulse Oximetry 98 01/19/25 11:57 Oxygen Delivery Method Room Air 01/19/25 11:57 Course Orders Ordered: ED Orders 01/19/25 12:04 XR ankle LT min 3V Stat XR foot LT min 3V Stat Discontinued Medications Hydrocodone Bitart/Acetaminophen (Hydrocodone/Acet 5/325 Tablet) 2 tab PO NOW ONE Stop: 01/19/25 13:59 Last Admin: 01/19/25 14:09 Dose: 2 tab Documented By: SABRA Prednisone (Prednisone 20 Mg Tablet) 60 mg PO NOW ONE Stop: 01/19/25 13:59 Last Admin: 01/19/25 14:08 Dose: 60 mg Documented By: [facility] Vital Signs Vital signs: Vital Signs - 8 hr 01/19/25 11:57 01/19/25 14:07 Temperature 98.8 F Pulse Rate 89 88 Respiratory Rate 18 18 Blood Pressure 160/102 H 156/89 H Pulse Oximetry 98 98 Oxygen Delivery Method Room Air Room Air MDM - Extremity (Nontraumatic) MDM Narrative Medical decision making narrative: Foot x-ray, midfoot called [facility] subjective can not increase osteoarthritic changes of the talonavicular joint. Moderate to severe forefoot degenerative changes with a questionable lucency in the metatarsal head sug gestive of erosive arthropathy. Calcaneal spurs. Ankle x-ray calcifications long with superficial tissues new lateral malleolus may represent resolving ossification versus tophus 44-year-old male with longstanding gout he states for at least 17 years has had tophi removed on other extremities in the past. States this feels very much like flares he was had in that ankle before. Reviewed his findings from today he has been on colchicine and indomethacin without improvement. Discussed we will give prednisone to see if this improves his symptoms and a short course of narcotic pain medication. We will also give referral for Orthopedic surgery/Podiatry. Discussed that there is Podiatry as well as a foot and ankle specialist Dr. Tomlinson. Patient prefers of the orthopedic surgeon. Discussed return precautions. He has follow up this Monday with primary care to establish. Discharge Plan Departure Patient Disposition: Home Clinical Impression: Gout flare Instructions: DI for Gout Activity Restrictions/Additional Instructions: You can follow up with Podiatry or the foot and ankle specialist with Orthopedic surgery. Contacts included below. Please call to set up follow up. Follow up with your primary care to make sure you are improving once your flare has not improved you can discuss restarting your allopurinol. Take prednisone once daily until completed. You can take [place] 1-2 tablets every 6 hours as needed for pain. You can take indomethacin with this medication or other NSAIDs. You can take acetaminophen instead of [place] but do not take it with the [place]. [facility] [place]. Please return for fevers, rapidly worsening symptoms, new swelling, new redness or other new or concerning changes. Prescriptions: New prednisone 10 mg tablets,dose pack See Rx Instructions .ROUTE .COMPLEX Qty: 21 0RF Rx Instructions: 6 tabs p.o. x1 day, then 5 tabs p.o. x1 day, then 4 tablets p.o. x1 day, then 3 tabs p.o. x1 day, then 2 tabs p.o. x1 day, then 1 tab p.o. x1 day hydrocodone-acetaminophen 5-325 mg tablet 1 tab PO Q6H PRN (Reason: pain) Qty: 10 0RF No Action hydrocodone-acetaminophen 5-325 mg tablet 1 tab PO BID PRN (Reason: pain) Qty: 10 0RF metformin 500 mg Tablet 500 mg PO BID sildenafil [Viagra] 100 mg Tablet See Rx Instructions .ROUTE .COMPLEX PRN (Reason: Erectile Dysfunction) Rx Instructions: 100 mg orally as needed rosuvastatin [Crestor] 40 mg tablet 40 mg PO DAILY ibuprofen 600 mg tablet 600 mg PO QID Qty: 30 0RF Rx Instructions: Take every 6 hours for the next 2-3 days. Alternate with [place] or Tylenol. Take a pain medication every three hours. Ibuprofen, then either 1. two tabs of [place], 2. one [place], one extra strength Tylenol, OR 3. two extra strength Tylenol. When you are comfortable on a regimen of alternating regular Tylenol and ibuprofen then you may start decreasing your total pain medication. Please call the office of [facility] with at least 24 hours notice if you need a refill on pain medication docusate sodium [Colace] 100 mg capsule 100 mg PO BID Qty: 30 0RF Rx Instructions: Please take Colace twice daily while taking narcotic pain medicine to prevent constipation. If you feel constipated and have not had a bowel movement in 2-3 days please call the office for guidance. You may take any [id number] stool softener or laxative that has worked for you to treat constipation in the past. hydrocodone-acetaminophen 5-325 mg tablet 1 tab PO Q6H PRN (Reason: pain) Qty: 10 0RF duloxetine 60 mg capsule,delayed release(DR/EC) 60 mg PO DAILY lactulose [Constulose] 10 gram/15 mL solution 10 g PO DAILY PRN (Reason: constipation) Qty: 237 0RF lisinopril 20 mg tablet 20 mg PO DAILY Referrals: Sheridan Tomlinson MD [Physician] - Jud Quick MD [Physician] - Owen Shepherd PA-C [Primary Care Provider] - Stand Alone Forms: Patient Portal/API/Survey
[2025-01-19 14:07] VITALS: BP 156/89; PULSE 88; RESP 18; O2SAT 98
[2025-01-19] MEDS: predniSONE 20 MG TABLET 60 MG PO (14:08)
[2025-01-19] MEDS: HYDROCODONE/ACET 5/325 TABLET 2 TAB PO (14:09)
== END 2025-01-19 14:16 | disposition home or self-care (01) ==
PROVIDERS: Emergency Provider Emergency Medicine; PCP Student in an Organized Health Care Education/Training Program
DX: M10.9 Gout, unspecified (principal)
CPT/HCPCS: 73610; 73630; 99283

== ENCOUNTER → 2025-02-08 12:16 | Outpatient (CLI) | payer OTHER, SELFPAY ==
[2021-07-18 16:55] VITALS: BMI 39.9
--- NOTE | 2025-02-08 12:30 | DI.RAD.S_ITS ---
PROCEDURE: XR CHEST 2V INDICATIONS: SOB TECHNIQUE: 2 views of the chest were acquired. COMPARISON: None. FINDINGS: Surgical changes and devices: Thoracic stimulator leads project posterior to the T9 and T10 vertebral bodies. Lungs and pleura: Lungs are clear. No pleural effusions or pneumothorax. Mediastinum: Mediastinal contours are normal. Heart size is normal. Bones and chest wall: No suspicious bony abnormalities. Soft tissues appear unremarkable. IMPRESSION: No acute cardiopulmonary abnormality is seen. Dictated by: John Garland M.D. on 02/08/2025 at 14:28 Approved by: John Garland M.D. on 02/08/2025 at 14:29
[2025-02-08 12:44] LABS: Add Manual Diff / Slide Review NO; Appearance Urine UA CLEAR; Basophils Absolute Auto 0 /uL (0-100); Basophils Percent Auto 0.2 % (0-2); Bilirubin Urine UA NEGATIVE (NEGATIVE); Color Urine UA YELLOW; Eosinophils Absolute Auto 200 /uL (0-450); Glucose Urine UA NEGATIVE (Negative); Hematocrit 46.3 % (41-53); Hemoglobin 15.5 g/dL (13.5-17.5); Ketones Urine UA NEGATIVE (NEGATIVE); Leukocyte Esterase Urine UA NEGATIVE (NEGATIVE); Lymphocytes Absolute Auto 1500 /uL (1100-4500); Mean Corpuscular HGB Conc 33.4 % (30-36); Mean Corpuscular Hemoglobin 27.8 PG (26-34); Mean Corpuscular Volume 83.2 fL (80-100); Monocytes Absolute Auto 300 /uL (0-900); Monocytes Percent Auto 5.3 % (3-14); Neutrophils Absolute Auto 4100 /uL (1500-7000); Neutrophils Percent Auto 67.5 % (50-75); Nitrite Urine UA NEGATIVE (Negative); Occult Blood Urine UA NEGATIVE (Negative); Platelet Count 218 X10^3/uL (150-400); Protein Urine UA NEGATIVE (Negative); Red Blood Cell Count 5.56 X10^6/uL (4.5-5.9); Red Cell Distribution Width 13.4 % (11.6-14.8); Specific Gravity Urine UA 1.015 (1.000-1.035); Urobilinogen Urine UA 0.2 E.U./dL (0.2); White Blood Cell Count 6.1 X10^3/uL (4.5-11.0)
[2025-02-08 12:52] LABS: Bacteria Urine Occasional (0-1); Culture Indicated Urine Cult Not Indicated; RBC Urine 0-1/HPF (0-5/HPF); Squamous Epithelial Cell Urine 0-1 /HPF (0-5/HPF); Urine Volume 10mL (spun); WBC Urine 0-1/HPF (0-5/HPF)
[2025-02-08 13:03] LABS: Alanine Aminotransferase 53 IU/L (<50); Albumin 4.5 g/dL (3.5-5.0); Albumin Globulin Ratio 1.8 (1.0-2.8); Alkaline Phosphatase 94 U/L (38-126); Aspartate Aminotransferase 43 IU/L (17-59); BUN Creatinine Ratio 13.6 (6-22); Blood Urea Nitrogen 11 mg/dL (9-20); Calcium 9.9 mg/dL (8.4-10.2); Carbon Dioxide 26 mmol/L (22-32); Chloride 104 mmol/L (98-107); Estimated Glomerular Filt Rate > 60 mL/min (>60); Globulin 2.5 g/dL (1.7-4.1); Glucose 229 mg/dL (70-99); HEMOLYSIS < 15 (0-50); Potassium 4.4 mmol/L (3.4-5.1); Sodium 139 mmol/L (137-145); Uric Acid 7.9 mg/dL (3.5-8.5)
[2025-02-08 13:05] LABS: Hemoglobin A1C% w Est Avg Glu 11.3 % (4.0-6.0)
== END ==
PROVIDERS: PCP Family Medicine; Referring Provider Family Medicine; Visit Provider Family Medicine
DX: R31.9 Hematuria, unspecified (principal); R50.9 Fever, unspecified; R61 Generalized hyperhidrosis; R79.89 Other specified abnormal findings of blood chemistry; E11.9 Type 2 diabetes mellitus without complications; M10.9 Gout, unspecified; I10 Essential (primary) hypertension
CPT/HCPCS: 36415; 71046; 80053; 81001; 83036; 84402; 84550; 85025